=== PATIENT | female | born 1960 | race Caucasian/White ===

== ENCOUNTER → 2020-09-23 17:47 | Outpatient (CLI) | payer OTHER, SELFPAY ==
--- NOTE | ~2020-09-23 | MM_ITS ---
EXAMINATION: MM screening dannie BI w mani HISTORY: Screening mammogram TECHNIQUE: Craniocaudal and mediolateral oblique 3-D tomosynthesis images were obtained and synthetic 2-D images were generated. CAD analysis was submitted and interpreted. COMPARISON: 07/31/2017 diagnostic left digital mammogram , 12/10/2012 bilateral digital screening mammogram examinations BREAST PARENCHYMAL COMPOSITION: There are scattered areas of fibroglandular density. FINDINGS: Prominent right axillary tail and bilateral axillary lymph nodes are again noted, also pres ent on 12/10/2012. There is no evidence of suspicious mass, calcification, or architectural distortion to suggest malignancy in either breast. There has been no suspicious interval change. IMPRESSION: 1. No mammographic evidence of malignancy. 2. Recommend routine screening mammography in one year. BI-RADS Category 2: Benign finding(s). Reviewed, dictated and finalized at location A.
--- NOTE | ~2020-09-23 | DEXA_ITS ---
Bone Density Report Name: Catherine Alexis Age: 59 Sex: Female Ethnicity: White Date of : 1960 Indication: osteopenia; height loss; postmenopausal Referring Provider: Allie Lopez Study: Bone densitometry was performed. Exam Date: September 23, 2020 Accession number: [id number] Bone Density: Region BMD T-score Z-score Classification AP Spine (L1-L4) 0.856 -1.7 -0.3 Osteopenia Femoral Neck (Left) 0.794 -0.5 0.8 Normal Total Hip (Left) 0.920 -0.2 0.8 Normal Femoral Neck (Right) 0.812 -0.3 0.9 Normal Total Hip (Right) 0.887 -0.4 0.5 Normal Total Hip Mean 0.904 -0.3 0.7 Normal World Health Organization criteria for BMD impression classify patients as: Normal (T-score at or above -1.0), Osteopenia (T-score between -1.0 and -2.5), or Osteoporosis (T-score at or below -2.5). 10-year Fracture Risk(1): Major Osteoporotic Fracture 6.3% Hip Fracture 0.2% Reported Risk Factors: [place] (), Neck BMD=0.794, BMI=30.1 (1) FRAX(R) Version 3.08. Fracture probability calculated for an untreated patient. Fracture probability may be lower if the patient has received treatment. Previous Exams: Region Exam Age BMD T-score BMD Change BMD Change Date g/cm2 vs Baseline vs Previous AP Spine(L1-L4) 09/23/2020 59 0.856 -1.7 -0.045* -0.045* 07/18/2017 56 0.901 -1.3 Total Hip(Left) 09/23/2020 59 0.920 -0.2 -0.020 -0.020 07/18/2017 56 0.940 0.0 Total Hip(Right) 09/23/2020 59 0.887 -0.4 -0.047* -0.047* 07/18/2017 56 0.934 -0.1 *Denotes significance at 95% confidence level, LSC for AP Spine = 0.022 g/cm2, LSC for Total Hip = 0.027 g/cm2 Clinical Information Provided by Patient: Has used the following medications: Vitamin D Patient maximum height was 66 Menopause Age: 50 No regular weight bearing exercise Does not regularly consume dairy products Onset of menses at age 13 Number of children 3 Impression: The patient has low bone mass, based on the Total Spine T-score. The patient has an estimated ten-year risk of hip fracture of 0.2% and an estimated ten-year risk of major fracture of 6.3%, based on the WHO FRAX algorithm. The BMD for the AP Spine(L1-L4) decreased, changing by -0.045 since the last DXA exam. The BMD for the Total Hip(Right) decreased, changing by -0.047 since the last DXA exam. Discussion: BONE DENSITY IS LOW AT ONE OR MORE SKELETAL SITES. This patient's lowest T-sc
== END ==
PROVIDERS: PCP Internal Medicine; Visit Provider Nurse Practitioner
DX: Z12.31 Encounter for screening mammogram for malignant neoplasm of breast (principal); M85.88 Other specified disorders of bone density and structure, other site
CPT/HCPCS: 77063; 77067; 77080

== ENCOUNTER → 2021-11-28 12:34 | Outpatient (CLI) | payer OTHER, SELFPAY ==
--- NOTE | ~2021-11-28 | MM_ITS ---
EXAMINATION: MM screening dannie BI w mani HISTORY: Screening mammogram TECHNIQUE: Craniocaudal and mediolateral oblique 3-D tomosynthesis images were obtained and synthetic 2-D images were generated. CAD analysis was submitted and interpreted. COMPARISON: 09/23/2020 bilateral screening mammogram 07/31/2017 diagnostic left mammogram 07/18/2017 bilateral screening mammogram 12/10/2012 bilateral screening mammogram BREAST PARENCHYMAL COMPOSITION: There are scattered areas of fibroglandular density. FINDINGS: There is no evidence of suspicious mass, calcification, or architectural distortion to sugg est malignancy in either breast. There has been no suspicious interval change. IMPRESSION: 1. No mammographic evidence of malignancy. 2. Recommend routine screening mammography in one year. BI-RADS Category 1: Negative Reviewed, dictated and finalized at location A.
== END ==
PROVIDERS: PCP Internal Medicine; Visit Provider Internal Medicine
DX: Z12.31 Encounter for screening mammogram for malignant neoplasm of breast (principal)
CPT/HCPCS: 77063; 77067

== ENCOUNTER 2022-10-16 08:39 | Day surgery (SDC) | payer OTHER, SELFPAY ==
[2022-09-13 13:04] VITALS: BMI 32.3
--- NOTE | 2022-10-02 10:24 | SUR.PREOP ---
pt states no change in health hx/ new time and date for procedure provided.
--- NOTE | 2022-10-13 16:10 | P.HP_ITS ---
History of Present Illness History of Present Illness Consent: Risks, benefits, and alternatives have been discussed and questions answered. Patient agrees to proceed with procedure. Chief complaint: Dysphagia Narrative: Catherine Alexis is a 61 year old female referred for investigation of dysphagia. For the past several years she is noticing solid food getting stuck about a [address]. And on some occasions she can regurgitate it but usually she needs to wait for it to pass. Rice, bread and meat are things to give her the most difficulty. She denies chronic heartburn. Review of Systems Review of Systems: All systems reviewed & are unremarkable except as noted in HPI and below PMFSH Past Medical History Medical History COVID (~12/19/20) Elevated BP without diagnosis of hypertension Hypothyroidism Osteopenia Syncope Vitamin D deficiency Surgical History Surgical History H/O elbow surgery Radial head replacement in right elbow 01/17/2018 H/O tubal ligation 1991 History of appendectomy 1967 Family History Family History Father Family history of coronary artery disease Grandparent Diabetes mellitus Hypothyroidism Mother Diabetes mellitus Hypothyroidism Hypertension Son Heart disease Social History Social History Smoking status: Never smoker Alcohol intake: current Drinks per week: 0 Alcohol use details: 2X/YEAR Substance use: never Substance use type: does not use Lack of Transportation: No Lack of Food: Never True Current Housing: I Have Housing Concerned About Future Housing: No Difficulty Paying Gas/Electric Bills: No Difficulty Paying for Meds: No Currently Unemployed: No Education: High School Diploma/GED Difficulty w/ Childcare or Family Care: No Living arrangements: with family Spiritual care concerns: No Meds Home Medications and Allergies Home Medications Medication Instructions Recorded Confirmed Type levothyroxine 88 mcg tablet 88 mcg PO DAILY #90 tabs 07/06/22 10/16/22 Rx Allergies Allergy/AdvReac Type Severity Reaction Status Date / Time No Known Allergies Allergy Verified 10/16/22 09:07 Exam Const: General: alert Orientation/consciousness: patient oriented x3 Resp: Auscultation: clear to auscultation bilaterally Cardio: Rhythm: regular rhythm GI: GI Palp: Yes Soft to palpation and No Tenderness to palpation present (GI) Neuro: General: patient oriented x3 Assessment and Plan Assessment and plan (1) Dysphagia: Code(s): R13.10 - Dysphagia, unspecified Status: Acute Assessment and Plan: EGD with possible biopsy or dilatation or cautery.
--- NOTE | 2022-10-16 08:55 | P.PNAN_ITS ---
Anes - Initial Pre Proc Eval Procedure: Operation Date: 10/16/22 10:30 Proposed Procedures p Esophagogastroduodenoscopy - Triston Taylor MD Date/Time: 10/16/22 08:55 Surgeon: Triston Taylor MD Pre Op Diagnosis: Dysphagia Patient Data Age: 61 Gender: F Height: 1.65 m Weight: 88 kg Allergies Allergy/AdvReac Type Severity Reaction Status Date / Time No Known Allergies Allergy Verified 09/13/22 13:04 Home Medications Medication Instructions Recorded Confirmed Type levothyroxine 88 mcg tablet 88 mcg PO DAILY #90 tabs 07/06/22 09/13/22 Rx Patient hx anesthesia problems: none Family hx anesthesia problems: none Results Review: All pre-operative results and documents have been reviewed as part of the pre- operative evaluation. [facility] Past Medical History Medical History COVID (~12/19/20) Elevated BP without diagnosis of hypertension Hypothyroidism Osteopenia Syncope Vitamin D deficiency Surgical History Surgical History H/O elbow surgery Radial head replacement in right elbow 01/17/2018 H/O tubal ligation 1991 History of appendectomy 1967 Family History Family History Father Family history of coronary artery disease Grandparent Diabetes mellitus Hypothyroidism Mother Diabetes mellitus Hypothyroidism Hypertension Son Heart disease Social History Social History (Updated 08/18/22 @ 07:37 by Verónica Plata CMA) Smoking status: Never smoker Alcohol intake: current Drinks per week: 0 Alcohol use details: 2X/YEAR Substance use: never Substance use type: does not use Lack of Transportation: No Lack of Food: Never True Current Housing: I Have Housing Concerned About Future Housing: No Difficulty Paying Gas/Electric Bills: No Difficulty Paying for Meds: No Currently Unemployed: No Education: High School Diploma/GED Difficulty w/ Childcare or Family Care: No Living arrangements: with family Spiritual care concerns: No Anes - Eval Final PreProcedure Day of Procedure 10/16/22 08:55 Patient weight: obese Heart: regular rate and rhythm Lungs: clear to auscultation and normal air movement Airway: Mallampati scale class II Neurological: alert and oriented Last oral intake: >/= 8 hours ASA classification: II Emergent: no Anesthetic plan: proceed Anesthesia type and monitoring: general GIVS Results Review: All pre-operative results and documents have been reviewed as part of the pre- operative evaluation. Informed Consent: The patient's anesthetic plan and its attendant risks and benefits were discussed with the patient/family/POA. Questions were solicited and answers provided to the satisfaction of the patient/family/POA.
[2022-10-16 09:12] VITALS: BP 153/87; PULSE 70; RESP 18; TEMP 37; O2SAT 100
[2022-10-16] MEDS: LACTATED RINGERS 1,000 ML 150 ML IV CONT (09:33)
[2022-10-16 10:56] VITALS: BP 109/48; PULSE 64; RESP 14; O2SAT 97
[2022-10-16 11:03] VITALS: BP 124/59; PULSE 62; RESP 15; O2SAT 98
[2022-10-16 11:13] VITALS: BP 130/64; PULSE 63; RESP 15; O2SAT 99
--- NOTE | 2022-10-16 11:32 | WPDANESPN ---
Anes - Prog Note Post-Op Date/Time: 10/16/22 11:32 Cardiovascular status: normal Respiratory status: normal Airway patency: baseline Mental status: baseline Post-Op hydration status: normal Vital Signs: Last Vital Signs Temp 37.0 C 10/16/22 09:12 Pulse 63 10/16/22 11:13 Resp 15 10/16/22 11:13 BP 130/64 10/16/22 11:13 Pulse Ox 99 10/16/22 11:13 O2 Del Method Room Air 10/16/22 11:13 Pain Score (VAS): 0 I/O: Intake & Output 10/15/22 10/16/22 10/16/22 23:59 07:59 15:59 Intake Total 200 Balance 200 Post-procedural complaints: none Patient Feedback: Patient satisfied with anesthetic care.
== END 2022-10-16 11:46 | disposition home or self-care (01) ==
PROVIDERS: PCP Internal Medicine; Visit Provider Internal Medicine Gastroenterology
PROC: 0DJ08ZZ Inspection of Upper Intestinal Tract, Via Natural or Artificial Opening Endoscopic (ICD-10-PCS; CPT 43235; principal; 2022-10-16 10:30)
DX: R13.10 Dysphagia, unspecified (principal)
CPT/HCPCS: 43249; 43239

== ENCOUNTER 2022-10-16 09:00 | Outpatient (NON) | payer OTHER, SELFPAY | END 2022-10-16 09:01 | disposition home or self-care (01) | LOC: ANHLAB 10-18 07:38 | PROVIDERS: PCP Internal Medicine; Visit Provider Internal Medicine Gastroenterology | DX: K21.00 Gastro-esophageal reflux disease with esophagitis, without bleeding (principal) | CPT/HCPCS: 88305 ==

== ENCOUNTER 2023-01-02 14:55 | Outpatient (CLI) | payer OTHER, SELFPAY ==
[2023-01-02 16:32] LABS: Basophils Absolute Auto 0.1 K/mm3 (0.0-0.1); Basophils Percent Auto 0.7 % (0.2-1.2); Eosinophils Absolute Auto 0.2 K/mm3 (0-0.3); Eosinophils Percent Auto 2.6 % (0-4.4); Hematocrit 35.1 % (37.0-47.0); Hemoglobin 11.2 g/dL (12.0-15.0); Immature Granulocyte Absolute 0.02 K/mm3 (0.00-0.031); Immature Granulocyte Percent A 0.3 % (0-0.5); Lymphocytes Absolute Auto 2.76 K/mm3 (0.9-3.2); Lymphocytes Percent Auto 40.1 % (18.3-44.2); Mean Corpuscular HGB Conc 31.9 g/dl (32-36); Mean Corpuscular Hemoglobin 26.2 pg (26-34); Mean Platelet Volume 11.6 fl (7.4-10.4); Monocytes Absolute Auto 0.5 K/mm3 (0.1-0.6); Monocytes Percent Auto 7.3 % (2.6-8.5); Neutrophils Absolute Auto 3.4 K/mm3 (1.3-6.7); Platelet Count Result 213 k/mm3 (150-375); Red Blood Count 4.28 M/mm3 (4.2-5.4); Red Cell Distribution Width 14.1 % (11.5-14.5); White Blood Count 6.9 K/mm3 (4.5-10.0)
[2023-01-02 16:50] LABS: Alanine Aminotransferase 26 U/L (6-35); Albumin Level 4.2 g/dL (3.5-5.1); Alkaline Phosphatase 46 U/L (38-126); Anion Gap 10 mmol/L (8-16); Aspartate Amino Transferase 38 U/L (14-36); Bilirubin,Total 0.3 mg/dL (0.2-1.3); Blood Urea Nitrogen 14 mg/dL (7-17); Calcium 9.1 mg/dL (8.4-10.2); Carbon Dioxide 25 mmol/L (22-30); Chloride 104 mmol/L (98-107); Estimated Glomerular Filt Rate > 60; Glucose 129 mg/dL (65-110); Potassium 3.9 mmol/L (3.4-5.0); Sodium 139 mmol/L (137-145)
== END 2023-01-02 14:56 | disposition home or self-care (01) ==
LOC: ANHGOSHLAB 14:56
PROVIDERS: PCP Internal Medicine; Visit Provider Nurse Practitioner
DX: E03.9 Hypothyroidism, unspecified (principal); R74.8 Abnormal levels of other serum enzymes; Z13.29 Encounter for screening for other suspected endocrine disorder
CPT/HCPCS: 36415; 80053; 84443; 85025

== ENCOUNTER 2023-02-01 07:30 | Day surgery (SDC) | payer OTHER, SELFPAY ==
[2023-01-24 13:47] VITALS: BMI 35.4
--- NOTE | 2023-01-31 15:34 | PM.HPGS ---
History of Present Illness History of Present Illness Consent: Risks, benefits, and alternatives have been discussed and questions answered. Patient agrees to proceed with procedure. Chief complaint: Neoplasm Screening Narrative: Catherine Alexis is a 62 year old female Was referred for colon cancer screening. Her last colonoscopy which was 10 years ago was unremarkable. Review of Systems Review of Systems: All systems reviewed & are unremarkable except as noted in HPI and below PMFSH Past Medical History Medical History COVID (~12/19/20) Elevated BP without diagnosis of hypertension Hypothyroidism Osteopenia Syncope Vitamin D deficiency Surgical History Surgical History H/O elbow surgery Radial head replacement in right elbow 01/17/2018 H/O tubal ligation 1990 History of appendectomy 1967 Family History Family History Father Family history of coronary artery disease Grandparent Diabetes mellitus Hypothyroidism Mother Diabetes mellitus Hypothyroidism Hypertension Son Heart disease Social History Social History Smoking status: Never smoker Alcohol intake: current Drinks per week: 0 Alcohol use details: socially Substance use: never Substance use type: does not use Lack of Transportation: No Lack of Food: Never True Current Housing: I Have Housing Concerned About Future Housing: No Difficulty Paying Gas/Electric Bills: No Difficulty Paying for Meds: No Currently Unemployed: No Education: High School Diploma/GED Difficulty w/ Childcare or Family Care: No Living arrangements: with family Spiritual care concerns: No Meds Home Medications and Allergies Home Medications Medication Instructions Recorded Confirmed Type pantoprazole 40 mg tablet,delayed 40 mg PO QAM #30 tabs 10/16/22 02/01/23 Rx release levothyroxine 88 mcg tablet See Rx Instructions .Route 01/26/23 02/01/23 Rx .COMPLEX #90 tabs Allergies Allergy/AdvReac Type Severity Reaction Status Date / Time No Known Allergies Allergy Verified 02/01/23 08:37 Exam Const: General: alert Orientation/consciousness: patient oriented x3 Resp: Auscultation: clear to auscultation bilaterally Cardio: Rhythm: regular rhythm GI: GI Palp: Yes Soft to palpation and No Tenderness to palpation present (GI) Neuro: General: patient oriented x3 Assessment and Plan Assessment and plan (1) Screening for colon cancer: Code(s): Z12.11 - Encounter for screening for malignant neoplasm of colon Status: Acute Assessment and Plan: Colonoscopy with possible biopsy or polypectomy or cautery or injection of substances.
[2023-02-01 08:41] VITALS: BP 131/73; PULSE 73; RESP 16; TEMP 36.6; O2SAT 98
[2023-02-01] MEDS: LACTATED RINGERS 1,000 ML 150 ML IV CONT (08:58)
--- NOTE | 2023-02-01 09:24 | P.PNAN_ITS ---
Anes - Initial Pre Proc Eval Procedure: Operation Date: 02/01/23 10:00 Proposed Procedures p Screening Colonoscopy - Triston Taylor MD Date/Time: 02/01/23 09:24 Surgeon: Triston Taylor MD Pre Op Diagnosis: Neoplasm Screening Patient Data Age: 62 Gender: F Height: 1.63 m Weight: 94 kg Last Vital Signs Temp 36.6 C 02/01/23 08:41 Pulse 73 02/01/23 08:41 Resp 16 02/01/23 08:41 BP 131/73 02/01/23 08:41 Pulse Ox 98 02/01/23 08:41 O2 Del Method Room Air 02/01/23 08:41 Allergies Allergy/AdvReac Type Severity Reaction Status Date / Time No Known Allergies Allergy Verified 02/01/23 08:37 Home Medications Medication Instructions Recorded Confirmed Type pantoprazole 40 mg tablet,delayed 40 mg PO QAM #30 tabs 10/16/22 02/01/23 Rx release levothyroxine 88 mcg tablet See Rx Instructions .Route 01/26/23 02/01/23 Rx .COMPLEX #90 tabs Patient hx anesthesia problems: none Family hx anesthesia problems: none Results Review: All pre-operative results and documents have been reviewed as part of the pre- operative evaluation. [facility] Past Medical History Medical History COVID (~12/19/20) Elevated BP without diagnosis of hypertension Hypothyroidism Osteopenia Syncope Vitamin D deficiency Surgical History Surgical History H/O elbow surgery Radial head replacement in right elbow 01/17/2018 H/O tubal ligation 1991 History of appendectomy 1967 Family History Family History Father Family history of coronary artery disease Grandparent Diabetes mellitus Hypothyroidism Mother Diabetes mellitus Hypothyroidism Hypertension Son Heart disease Social History Social History Smoking status: Never smoker Alcohol intake: current Drinks per week: 0 Alcohol use details: socially Substance use: never Substance use type: does not use Lack of Transportation: No Lack of Food: Never True Current Housing: I Have Housing Concerned About Future Housing: No Difficulty Paying Gas/Electric Bills: No Difficulty Paying for Meds: No Currently Unemployed: No Education: High School Diploma/GED Difficulty w/ Childcare or Family Care: No Living arrangements: with family Spiritual care concerns: No Anes - Eval Final PreProcedure Day of Procedure 02/01/23 09:24 Patient weight: obese Heart: regular rate and rhythm Lungs: clear to auscultation Airway: Mallampati scale class II Neurological: alert and oriented Last oral intake: >/= 8 hours ASA classification: II Emergent: no Anesthetic plan: proceed Anesthesia type and monitoring: general GIVS and standard monitoring Results Review: All pre-operative results and documents have been reviewed as part of the pre- operative evaluation. Informed Consent: The patient's anesthetic plan and its attendant risks and benefits were discusse d with the patient/family/POA. Questions were solicited and answers provided to the satisfaction of the patient/fa
[2023-02-01 10:40] VITALS: BP 92/48; PULSE 63; RESP 16; O2SAT 100
[2023-02-01 10:50] VITALS: BP 103/66; PULSE 67; RESP 16; O2SAT 98
[2023-02-01 10:58] VITALS: BP 118/65; PULSE 56; RESP 16; O2SAT 100
--- NOTE | 2023-02-01 11:26 | WPDANESPN ---
Anes - Prog Note Post-Op Date/Time: 02/01/23 11:26 Cardiovascular status: normal Respiratory status: normal Airway patency: baseline Mental status: baseline Post-Op hydration status: normal Vital Signs: Last Vital Signs Temp 36.6 C 02/01/23 08:41 Pulse 56 L 02/01/23 10:58 Resp 16 02/01/23 10:58 BP 118/65 02/01/23 10:58 Pulse Ox 100 02/01/23 10:58 O2 Del Method Room Air 02/01/23 10:58 Pain Score (VAS): 0 I/O: Intake & Output 01/31/23 02/01/23 02/01/23 23:59 07:59 15:59 Intake Total 450 Balance 450 Patient Feedback: Patient satisfied with anesthetic care.
== END 2023-02-01 11:06 | disposition home or self-care (01) ==
PROVIDERS: PCP Internal Medicine; Visit Provider Internal Medicine Gastroenterology
PROC: 0DJD8ZZ Inspection of Lower Intestinal Tract, Via Natural or Artificial Opening Endoscopic (ICD-10-PCS; CPT 45378; principal; 2023-02-01 10:00)
DX: Z12.11 Encounter for screening for malignant neoplasm of colon (principal)
CPT/HCPCS: 45378

== ENCOUNTER → 2023-02-05 14:37 | Outpatient (CLI) | payer OTHER, SELFPAY ==
--- NOTE | ~2023-02-05 | MM_ITS ---
EXAMINATION: MM screening [facility] BI w mani HISTORY: Screening mammogram TECHNIQUE: Craniocaudal and mediolateral oblique 3-D tomosynthesis images were obtained and synthetic 2-D images were generated. CAD analysis was submitted and interpreted. COMPARISON: 11/28/2021, 09/23/2020 by lateral screening mammogram examinations BREAST PARENCHYMAL COMPOSITION: There are scattered areas of fibroglandular density. FINDINGS: There is no evidence of suspicious mass, calcification, or architectural distortion to sugg est malignancy in either breast. There has been no suspicious interval change. IMPRESSION: 1. No mammographic evidence of malignancy. 2. Recommend routine screening mammography in one year. BI-RADS Category 1: Negative Reviewed, dictated and finalized at location A.
== END ==
PROVIDERS: PCP Internal Medicine; Visit Provider Internal Medicine
DX: Z12.31 Encounter for screening mammogram for malignant neoplasm of breast (principal)
CPT/HCPCS: 77063; 77067

== ENCOUNTER 2023-12-21 08:19 | Outpatient (CLI) | payer OTHER, SELFPAY ==
[2023-12-21 14:45] LABS: Basophils Percent Auto 0.7 % (0.2-1.2); Eosinophils Absolute Auto 0.1 K/mm3 (0-0.3); Hematocrit 39.5 % (37.0-47.0); Hemoglobin 12.7 g/dL (12.0-15.0); Immature Granulocyte Absolute 0.01 K/mm3 (0.00-0.031); Immature Granulocyte Percent A 0.2 % (0-0.5); Lymphocytes Absolute Auto 2.42 K/mm3 (0.9-3.2); Lymphocytes Percent Auto 44.6 % (18.3-44.2); Mean Corpuscular HGB Conc 32.2 g/dl (32-36); Mean Corpuscular Hemoglobin 26.7 pg (26-34); Mean Corpuscular Volume 83.2 fl (80-100); Mean Platelet Volume 12.4 fl (7.4-10.4); Monocytes Absolute Auto 0.3 K/mm3 (0.1-0.6); Monocytes Percent Auto 6.1 % (2.6-8.5); Neutrophils Absolute Auto 2.5 K/mm3 (1.3-6.7); Neutrophils Percent Auto 46.4 % (45.5-73.1); Platelet Count Result 199 k/mm3 (150-375); Red Blood Count 4.75 M/mm3 (4.2-5.4); Red Cell Distribution Width 13.9 % (11.5-14.5); White Blood Count 5.4 K/mm3 (4.5-10.0)
[2023-12-21 14:50] LABS: Alanine Aminotransferase 38 U/L (6-35); Albumin Level 4.3 g/dL (3.5-5.1); Alkaline Phosphatase 55 U/L (38-126); Anion Gap 10 mmol/L (4-12); Aspartate Amino Transferase 52 U/L (14-36); Bilirubin,Total 0.4 mg/dL (0.2-1.3); Blood Urea Nitrogen 12 mg/dL (7-17); Carbon Dioxide 26 mmol/L (22-30); Chloride 103 mmol/L (98-107); Cholesterol 148 mg/dL (0-200); Estimated Glomerular Filt Rate > 60; Glucose 106 mg/dL (65-110); HDL Direct 47 mg/dL; Potassium 3.8 mmol/L (3.4-5.0); Sodium 139 mmol/L (137-145); Triglycerides 139 mg/dL (<150)
[2023-12-21 15:00] LABS: LDL Cholesterol Direct 69 mg/dL
== END 2023-12-21 08:20 | disposition home or self-care (01) ==
LOC: ANHGOSHLAB 08:21
PROVIDERS: PCP Nurse Practitioner; Visit Provider Nurse Practitioner
DX: E03.9 Hypothyroidism, unspecified (principal); E55.9 Vitamin D deficiency, unspecified; Z13.220 Encounter for screening for lipoid disorders
CPT/HCPCS: 36415; 80053; 80061; 82306; 84443; 85025

== ENCOUNTER 2024-02-10 18:03 | Emergency (ER) | payer OTHER, SELFPAY ==
[2024-02-10 18:10] VITALS: BP 145/81; PULSE 79; RESP 18; TEMP 36.4; O2SAT 97
--- NOTE | 2024-02-10 18:23 | ED.URI ---
HPI - URI/Sore Throat General Chief Complaint: Upper Respiratory Infection Stated Complaint: cough / congestion / chest pain Time Seen by Provider: 02/10/24 18:24 Source: patient Mode of arrival: ambulatory Limitations: no limitations History of Present Illness HPI Narrative: 63-year-old female presents with complaint of cough, nasal congestion, fatigue, body aches for 4 days. Patient states her was seen here and was given antibiotic and steroid. Is requesting the same. Afebrile. No chest pain or shortness of breath. All systems reviewed negative except as noted above. Related Data Allergies Allergy/AdvReac Type Severity Reaction Status Date / Time No Known Allergies Allergy Verified 02/10/24 18:15 Review of Systems Review of Systems: CONSTITUTIONAL: Denies fever, chills, or sweats. Reports fatigue. EYES: Denies visual changes, redness, or discharge. ENT: reports rhinorrhea, congestion. Denies sore throat, or otalgia. CARDIOVASCULAR: Denies chest pain, palpitations, or edema. RESPIRATORY: Reports cough. Denies dyspnea. GASTROINTESTINAL: Denies abdominal pain, nausea, vomiting, or diarrhea. GENITOURINARY: Denies dysuria or hematuria. SKIN: Denies rash or itching. MUSCULOSKELETAL: Denies back pain, joint pain, or myalgia. NEUROLOGIC: Denies headache, numbness, or weakness. PSYCHIATRIC: Denies anxiety or depression. All other systems reviewed are negative, except as documented in HPI. [facility] Past Medical History Medical History COVID (~12/19/20) Elevated BP without diagnosis of hypertension Hypothyroidism Osteopenia Syncope Vitamin D deficiency Surgical History Surgical History H/O elbow surgery Radial head replacement in right elbow 01/17/2018 H/O tubal ligation 1991 History of appendectomy 1967 Family History Family History Father Family history of coronary artery disease Grandparent Diabetes mellitus Hypothyroidism Mother Diabetes mellitus Hypothyroidism Hypertension Son Heart disease Social History Social History (Updated 12/14/23 @ 08:52 by Verónica Plata CMA) Smoking status: Never smoker Alcohol intake: current Drinks per week: 0 Alcohol use details: socially Substance use: never Substance use type: does not use Do You Feel Safe in your Home?: Yes Lack of Transportation: No Lack of Food: Never True Current Housing: I Have Housing Concerned About Future Housing: No Difficulty Paying Gas/Electric Bills: No Difficulty Paying for Meds: No Currently Unemployed: No Education: High School Diploma/GED Difficulty w/ Childcare or Family Care: No Living arrangements: with family Spiritual care concerns: No Comments At time of signature, agree with nursing past medical, surgical, social and family history. There is no relevant family history pertinent to the presenting complaint. Exam Narrative: GENERAL: This is a well-nourished, well-developed patient, in no apparent distress. HEAD: normocephalic, atraumatic. EYES: PERRL. Sclera clear/white. Vision is grossly intact. EARS: External ears normal, auditory canals clear and without drainage, TMs normal without perforation. Hearing grossly intact. NOSE: External nose normal with Clear nasal drainage, mild congestion THROAT: Mucous membranes moist, postnasal drainage with mild erythema. No swelling or exudates. NECK: Neck supple, non-tender without lymphadenopathy, masses or thyromegaly. CARDIOVASCULAR: Regular rate and rhythm without murmurs, gallops, or rubs. RESPIRATORY: Crackles to bilateral lower lung perez on auscultation. Breath sounds equal bilaterally. No wheezes, rales, or rhonchi. SKIN: warm, Dry, intact with no suspicious lesions or rash, good texture and turgor. NEURO: awake, alert, and oriented to person, place and time. There were no obvious focal neurologic abnormalities. EXTREMITIES: No joint tenderness, effusion, or edema noted. Course Course Level of Care: Express Care Visit Vital Signs Vital signs: Vital Signs Temperature 36.4 C L 02/10/24 18:10 Pulse Rate 79 02/10/24 18:10 Respiratory Rate 18 02/10/24 18:10 Blood Pressure 145/81 H 02/10/24 18:10 Pulse Oximetry 97 02/10/24 18:10 Oxygen Delivery Room Air 02/10/24 18:10 Temperature 36.4 C L 02/10/24 18:10 Pulse Rate 79 02/10/24 18:10 Respiratory Rate 18 02/10/24 18:10 Blood Pressure 145/81 H 02/10/24 18:10 Pulse Oximetry 97 02/10/24 18:10 Oxygen Delivery Room Air 02/10/24 18:10 reviewed MDM - URI/Sore Throat MDM Narrative Medical decision making narrative: will treat patient for possible pneumonia due to crackles on auscultation. Mycoplasma pneumonia outbreak. Chest x-ray was offered patient did not feel was necessary. Patient well-appearing, nontoxic. Patient is aware of diagnosis, understands and agrees to treatment plan. Anticipatory guidance given. Patient agrees to follow-up as directed and is aware of reasons to seek care at the emergency department. Portions of this record may have been created with voice recognition software Differential Diagnosis Differential diagnosis: Likely upper respiratory infection, sinusitis, viral infection and bronchitis Discharge Plan Discharge Clinical Impression: Upper respiratory infection with cough and congestion Patient Disposition: Home, Self-Care Condition: Stable Instructions: Antibiotic Form, Acute Cough (ED) Additional Instructions: Take medications as prescribed. Continue taking [id number] Mucinex as directed on packaging. Take Tylenol or ibuprofen every 6-8 hours as needed for pain and fever. Drink at least 64 oz of water a day. Follow-up with your primary care physician if symptoms are not improving. Prescriptions: New doxycycline hyclate 100 mg capsule 100 mg PO BID 7 Days Qty: 14 0RF benzonatate 200 mg capsule 200 mg PO TID PRN (Reason: cough) Qty: 20 0RF methylprednisolone [Medrol (Janes)] 4 mg tablets,dose pack See Rx Instructions PO .COMPLEX Qty: 21 0RF Rx Instructions: orally per package directions No Action hydroxyzine HCl 25 mg tablet 25 mg PO QHS PRN (Reason: anxiety) Qty: 20 1RF pantoprazole 40 mg tablet,delayed release (DR/EC) 40 mg PO DAILY Qty: 90 3RF levothyroxine 100 mcg tablet 100 mcg PO DAILY Qty: 90 0RF cholecalciferol (vitamin D3) 1,250 mcg (50,000 unit) capsule 1,250 mcg PO WEEKLY Qty: 8 0RF Follow-up/Referrals: Scott Jimenez DO [Primary Care Provider] - Time of Disposition: 18:29
== END 2024-02-10 18:35 | disposition home or self-care (01) ==
PROVIDERS: Emergency Provider Nurse Practitioner Family; PCP Internal Medicine
DX: J06.9 Acute upper respiratory infection, unspecified (principal); R05.9 Cough, unspecified; E03.9 Hypothyroidism, unspecified; M85.80 Other specified disorders of bone density and structure, unspecified site; Z86.16 Personal history of COVID-19
CPT/HCPCS: 99213; G0463

== ENCOUNTER 2024-03-06 10:36 | Outpatient (CLI) | payer OTHER, SELFPAY ==
--- NOTE | ~2024-03-06 | XR_ITS ---
EXAMINATION: XR elbow RT min 3V DATE: 03/06/2024 10:43 INDICATION: Right elbow pain. TECHNIQUE: 4 views of right elbow were obtained. COMPARISON: Right forearm radiographs 08/21/2017 FINDINGS: Alignment is normal. No fracture. There is a prosthetic radial head. No periprosthetic luce ncy to suggest loosening or infection. There is severe elbow joint osteoarthritis. No elbow joint eff usion. IMPRESSION: 1. Severe elbow joint osteoarthritis. 2. Radial head prosthesis. Reviewed, dictated and finalized at location A. [employer]
== END 2024-03-06 10:37 | disposition home or self-care (01) ==
LOC: GOSHIMG 10:37
PROVIDERS: PCP Anesthesiology Pain Medicine; Visit Provider Nurse Practitioner
DX: M19.021 Primary osteoarthritis, right elbow (principal); Z96.621 Presence of right artificial elbow joint
CPT/HCPCS: 73080

== ENCOUNTER 2024-03-21 14:31 | Outpatient (CLI) | payer OTHER, SELFPAY ==
--- NOTE | ~2024-03-21 | MM_ITS ---
EXAMINATION: MM screening dannie BI w mani HISTORY: Screening TECHNIQUE: Craniocaudal and mediolateral oblique 3-D tomosynthesis images were obtained and synthetic 2-D images were generated. CAD analysis was submitted and interpreted. COMPARISON: Comparison to multiple prior studies sequentially, with oldest reviewed study dated 07/2017. BREAST PARENCHYMAL COMPOSITION: Not dense: There are scattered areas of fibroglandular density. FINDINGS: There is a new mass in the upper outer quadrant of the right breast, posterior third. The l eft breast is stable without evidence for malignancy. IMPRESSION: 1. New right breast mass. 2. Additional mammographic views and possible breast ultrasound are recommended. BI-RADS Category 0: Incomplete: Needs additional imaging evaluation. Reviewed, dictated and finalized at location B. GER TRANSIT IMPRESSION: 1. New right breast mass. 2. Additional mammographic views and possible breast ultrasound are recommended . BI-RADS Category 0: Incomplete: Needs additional imaging evaluation.
== END 2024-03-21 14:32 | disposition home or self-care (01) ==
LOC: MICIMG 14:33
PROVIDERS: PCP Internal Medicine; Visit Provider Internal Medicine
DX: Z12.31 Encounter for screening mammogram for malignant neoplasm of breast (principal); R92.8 Other abnormal and inconclusive findings on diagnostic imaging of breast
CPT/HCPCS: 77063; 77067

== ENCOUNTER 2024-04-04 13:14 | Outpatient (CLI) | payer OTHER, SELFPAY ==
--- NOTE | ~2024-04-04 | MMUS_ITS ---
EXAMINATION: US breast RT limited, MM diagnostic dannie RT w mani HISTORY: Follow-up right breast mass. TECHNIQUE: Additional 3-D tomosynthesis images of the right breast were performed and synthetic 2-D i mages were generated. CAD analysis was submitted and interpreted. High resolution Limited right breas t ultrasound was performed. COMPARISON: Comparison to multiple prior studies sequentially, with oldest reviewed study dated 07/2017. BREAST PARENCHYMAL COMPOSITION: Not dense: There are scattered areas of fibroglandular density. FINDINGS: MAMMOGRAPHIC FINDINGS: There is a persistent mass in the upper outer quadrant of the right breast posteriorly with indistinc t margins. There are no suspicious calcifications. ULTRASOUND: Limited right breast ultrasound: At 9:00, 5 cm from the nipple there is an irregular shaped antiparal lel hypoechoic mass with posterior shadowing and no internal vascularity measuring 4 mm. This likely corresponds to the mammographic finding. At 10:00, 1 cm from the nipple there is a 6 mm cyst. IMPRESSION: 1. Irregular shaped hypoechoic antiparallel mass measuring 4 mm in the right breast at 9:00, 5 cm fro m the nipple. 2. Ultrasound-guided right breast biopsy recommended. BI-RADS category 4, suspicious findings. Reviewed, dictated and finalized at location B. [employer] WORKER IMPRESSION: 1. Irregular shaped hypoechoic antiparallel mass measuring 4 mm in the right br east at 9:00, 5 cm from the nipple. 2. Ultrasound-guided right breast biopsy recommended. BI-RADS category 4, suspicious findings.
== END 2024-04-04 13:15 | disposition home or self-care (01) ==
LOC: ANHIMG 13:19
PROVIDERS: PCP Internal Medicine; Visit Provider Internal Medicine
DX: R92.8 Other abnormal and inconclusive findings on diagnostic imaging of breast (principal)
CPT/HCPCS: 76642; 77061; 77065; G0279

== ENCOUNTER 2024-05-15 11:40 | Emergency (ER) | payer BC, SELFPAY ==
[2024-05-15 11:48] VITALS: BP 150/73; PULSE 68; RESP 16; TEMP 36.2; O2SAT 100
[2024-05-15 12:13] LABS: EDCOVIDSCREEN Positive (Negative); EDINFLUASCREEN Negative (Negative); EDINFLUBSCREEN Negative (Negative)
--- NOTE | 2024-05-15 12:21 | ED.URI ---
HPI - URI/Sore Throat General Chief Complaint: Upper Respiratory Infection Stated Complaint: sinus congestion History of Present Illness HPI Narrative: patient is a 63-year-old female, past medical history significant for recent breast cancer diagnosis, not receiving treatment thus far, presents to [facility] with 2 day history of URI symptoms, including nasal congestion, dry cough, body aches malaise. She denies associated fevers, she has no chest pain shortness of breath. She is requesting influenza and COVID-19 screenings today. She does have history of COVID x2 in the past without required hospitalization. She denies any additional associated symptoms or modifying factors. Related Data Allergies Allergy/AdvReac Type Severity Reaction Status Date / Time No Known Allergies Allergy Verified 03/06/24 10:13 Review of Systems Constitutional: Comments: Refer HPI ENT: Comments: refer to HPI Respiratory: Comments: for HPI PMFSH Past Medical History Medical History COVID (~12/19/20) Osteopenia Syncope Elevated BP without diagnosis of hypertension Vitamin D deficiency Hypothyroidism Surgical History Surgical History H/O elbow surgery Radial head replacement in right elbow 01/17/2018 H/O tubal ligation 1991 History of appendectomy 1967 Family History Family History Father Family history of coronary artery disease Grandparent Diabetes mellitus Hypothyroidism Mother Diabetes mellitus Hypothyroidism Hypertension Son Heart disease Social History Social History Smoking status: Never smoker Alcohol intake: current Drinks per week: 0 Alcohol use details: socially Substance use: never Substance use type: does not use Do You Feel Safe in your Home?: Yes Lack of Transportation: No Lack of Food: Never True Current Housing: I Have Housing Concerned About Future Housing: No Difficulty Paying Gas/Electric Bills: No Difficulty Paying for Meds: No Currently Unemployed: No Education: High School Diploma/GED Difficulty w/ Childcare or Family Care: No Living arrangements: with family Spiritual care concerns: No Exam Const: General: healthy appearing Nutritional Appearance: well nourished and obese Orientation/consciousness: patient oriented x3 Limitations: no limitations HENMT: Head: normal to inspection Ears: external ears normal Face/Nose/Sinus: Normal external nose present Face and sinus: normal facial exam Mouth: Yes Normal oral and palatal mucosa present and Yes lip normal Other: mild pharyngeal cobblestone appearance noted, otherwise unremarkable pharyngeal exam Eyes: Conjunctivae: conjunctivae normal Pupils: Equal, round and reactive pupils present EOM: EOMs intact bilaterally Direct Ophthalmoscopy: no photophobia Neck: Neck: normal visual inspection, no lymphadenopathy and no meningeal signs Resp: Effort & Inspection: normal respiratory effort Auscultation: clear to auscultation bilaterally Cardio: Rate: regular rate Rhythm: regular rhythm Back/Spine/Pelvis: Back: no CVA tenderness Skin: General skin exam: normal color Rashes: no rashes Wounds: no wounds Extrem: General: normal to inspection Course Course Emergency Course: influenza is negative, COVID-19 positive. Will treat supportively with cough suppressant and short steroid course, pushing fluids and rest. Follow up with her primary doctor as well as Oncology. Patient is agreeable plan Level of Care: Express Care Visit (14095) Vital Signs Vital signs: Vital Signs Temperature 36.2 C L 05/15/24 11:48 Pulse Rate 68 05/15/24 11:48 Respiratory Rate 16 05/15/24 11:48 Blood Pressure 150/73 H 05/15/24 11:48 Pulse Oximetry 100 05/15/24 11:48 Oxygen Delivery Room Air 05/15/24 11:48 Temperature 36.2 C L 05/15/24 11:48 Pulse Rate 68 05/15/24 11:48 Respiratory Rate 16 05/15/24 11:48 Blood Pressure 150/73 H 05/15/24 11:48 Pulse Oximetry 100 05/15/24 11:48 Oxygen Delivery Room Air 05/15/24 11:48 MDM - URI/Sore Throat MDM Narrative Medical decision making narrative: COVID positive, prednisone daily for 5 days, promethazine DM for added symptom relief, will defer Paxlovid bit as patient has had COVID-19 twice in the past and her symptoms are mild at present Differential Diagnosis Differential diagnosis: Likely upper respiratory infection, otitis media, sinusitis, viral infection and bronchitis Lab Data Labs: Lab Results 05/15/24 Range/Units 12:11 POC Influenza A Ag Negative (Negative) POC Influenza B Ag Negative (Negative) POC SARS CoV-2 Ag Positive (Negative) Discharge Plan Discharge Clinical Impression: COVID-19 Patient Disposition: Home, Self-Care Condition: Stable Instructions: Antibiotic Form, COVID-19 (Coronavirus Disease 2019) (ED) Additional Instructions: PUSH FLUIDS AND REST, TAKE TYLENOL DIRECTED [id number] FOR FEVER REDUCTION, COMPLETE ORAL STEROIDS AND USE COUGH MEDICATION DIRECTED. SEE YOUR PRIMARY DOCTOR WELL YOUR ONCOLOGIST FOR FOLLOW-UP. IF YOU DEVELOPS CHEST PAIN OR SHORTNESS OF BREATH, PROCEED TO THE ER IMMEDIATELY Patient Language: Japanese Prescriptions: New prednisone 20 mg tablet 40 mg PO DAILY 5 Days Qty: 10 0RF promethazine-DM 6.25-15 mg/5 mL syrup 5 ml PO Q4-6H PRN (Reason: cough) Qty: 118 0RF No Action hydroxyzine HCl 25 mg tablet 25 mg PO QHS PRN (Reason: anxiety) Qty: 20 1RF pantoprazole 40 mg tablet,delayed release (DR/EC) 40 mg PO DAILY Qty: 90 3RF cholecalciferol (vitamin D3) 1,250 mcg (50,000 unit) capsule 1,250 mcg PO WEEKLY Qty: 8 0RF levothyroxine 100 mcg tablet 100 mcg PO DAILY Qty: 90 0RF Follow-up/Referrals: Scott Jimenez DO [Primary Care Provider] - Time of Disposition: 12:26
--- OUTSIDE RECORDS SUMMARY | 2024-05-15 12:37 | XMS_ITS | Clinical Summary ---
Author Organization [facility] Address [address] [place] [address] Care Team Providers Care Java Golden Gate Developer Name Role Phone Scott Jimenez DO Primary Care Provider [phone] Gill Asif MD Unavailable [phone] Allergies No known active allergies Medications levothyroxine (SYNTHROID) 88 mcg tablet Take 1 tablet (88 mcg total) by mouth daily 01/24/[address] (PROTONIX) 40 mg EC tablet Take 1 tablet (40 mg total) by mouth every morning 02/20/2023 Active rosuvastatin (CRESTOR) 10 mg tablet TAKE 1 TABLET(10 MG) BY MOUTH DAILY 90 tablet 3 03/21/2024 Active Active Problems Problem Noted Date Diagnosed Date History of invasive breast cancer 05/14/2024 Other fatigue 02/27/2023 Chest tightness 02/27/2023 Shortness of breath on exertion 02/27/2023 Urge incontinence of urine 07/01/2014 Pain in female pelvis 10/07/2013 Encounters Date Type Department Care Team Description 05/14/2024 2:00 PM COIL TIER Office Visit [facility] [address] [place] [phone] Aft, Edelmira Keith MD PhD History of invasive breast cancer 05/07/2024 Telephone [facility] [address] [place] [phone] Christian Caldwell 05/05/2024 10:07 AM COIL TIER - 05/05/2024 11:59 PM COIL TIER Hospital Encounter [facility] ([facility]) [address] [place] [address] AftEdelmira MD PhD Invasive lobular carcinoma of right breast in female (HCC) Discharge Disposition: Discharge to home or self care 04/29/2024 Orders Only [facility] [address] [facility] Floor [address] [place] [phone] Aft, Edelmira Keith MD PhD Invasive lobular carcinoma of right breast in female (HCC) (Primary Dx) 04/28/2024 Telephone [facility] ([facility]) [address] [place] [phone] Imelda Wright RN Test Results (Right breast x2 and right axillary LN biopsy path results from 04/25/24.) 04/25/2024 10:38 AM COIL TIER - 04/25/2024 11:59 PM COIL TIER Hospital Encounter [facility] ([facility]) [address] [place] [phone] Abnormal ultrasound Discharge Disposition: Discharge to home or self care 04/25/2024 9:42 AM COIL TIER - 04/25/2024 11:59 PM COIL TIER Hospital Encounter [facility] ([facility]) [address] [place] [address] Abnormal ultrasound Discharge Disposition: Discharge to home or self care 04/25/2024 9:38 AM COIL TIER - 04/25/2024 11:59 PM COIL TIER Hospital Encounter [facility] ([facility]) [address] [place] [address] Abnormal mammogram Discharge Disposition: Discharge to home or self care 04/24/2024 Telephone [facility] ([facility]) [address] [place] [phone] Melva Olvera, EDILSON 04/23/2024 Telephone [facility] ([facility]) [address] [place] [address] Onelia Mccann RN 04/18/2024 5:35 PM COIL TIER - 04/18/2024 11:59 PM COIL TIER Hospital Encounter [facility] ([facility]) [address] [place] [address] Discharge Disposition: Discharge to home or self care 04/15/2024 Telephone [facility] ([facility]) [address] [place] [address] Onelia Mccann, EDILSON 04/11/2024 Telephone [facility] ([facility]) [address] [place] [phone] Imelda Wright RN Appointment (Scheduling of breast biopsy) 04/04/2024 12:05 AM COIL TIER - 04/04/2024 11:59 PM COIL TIER Hospital Encounter [facility] ([facility]) [address] [place] [address] Discharge Disposition: Discharge to home or self care 04/04/2024 - 04/04/2024 11:59 PM COIL TIER Hospital Encounter [facility] ([facility]) [address] [place] [phone] Discharge Disposition: Discharge to home or self care 03/21/2024 - 03/21/2024 11:59 PM COIL TIER Hospital Encounter [facility] ([facility]) [address] [place] [address] Discharge Disposition: Discharge to home or self care from Last 3 Months Immunizations Name Administration Dates Next Due Influenza, Quadrivalent, Michelle l Culture-based MDCK, Preservative Free, Antibiotic Free, Intramuscular 03/06/2023 Surgical History Surgery Date Site/Laterality Comments VA APPENDECTOMY Appendectomy - (Added by TW Conv) VA LIG/TRNSXJ FLP TUBE ABDL/ VAG APPR UNI/BI Tubal Ligation - (Added by TW Conv) TUBAL LIGATION BREAST BIOPSY 04/25/2024 Right Medical History Medical History Date Comments Personal history of other en docrine, nutritional and metabolic disease History of thyroid d isease - (Added by TW Conv) Hypothyroidism Overweight Family History Medical History Relation Name Comments Diabetes type II Mother Family hist ory of type 2 diabetes mellitus - (Added by TW Conv) Heart disease Mother Family history of cardiac disorder - (Added by TW Conv) Hypertension Mother Family history of hypertension - (Added by TW Conv) Relation Name Status Comments Mother Social History Tobacco Use Types Packs/Day Years Used Date Smoking Tobacco: Never Tobacco Cessation:Counseling Given: Not Answered Comments No Sex and Gender Information Value Date Recorded Sex Assigned at Not on file Legal Sex Female 10:39 AM COIL TIER Gender Identity Female 04/20/2024 4:40 PM COIL TIER Sexual Orientation Straight 04/20/2024 4: 40 PM COIL TIER Obstetrics History Para Term AB IAB SAB Ectopic Multiple Livin g Live Births 3 3 3 3 3 Date Outcome GA Total Labor Labor/2nd/3rd Weight Sex Type Anes PTL Kay A1 A5 Name Clin 1980 Term 2.977 kg (6 lb 9 oz) M Vag-S pont Living Complications:None 1982 Term 2.892 kg (6 lb 6 oz) M Vag-S pont Living Complications:None 1990 Term 3.657 kg (8 lb 1 oz) M Vag-S pont Living Complications:None Last Filed Vital Signs Vital Sign Reading Time Taken Comments Blood Pressure 146/84 09/04/2023 9:09 AM CDT Pulse 66 09/04/2023 9:09 AM CDT Temperature 36.4 ??C (97.5 ??F) 04/29/2018 1 2:42 PM COIL TIER Respiratory Rate 23 04/29/2018 3:30 PM COIL TIER Oxygen Saturation 95% 09/04/2023 9:09 AM CDT Inhaled Oxygen Concentration - - Weight 103.2 kg (227 lb 9.6 oz) 05/14/2024 2:00 PM COIL TIER Height 162.6 cm (5' 4 ) 05/14/2024 2:00 PM COIL TIER Body Mass Index 39.07 05/14/2024 2:00 PM COIL TIER Plan of Treatment Health Maintenance Due Date Last Done Comments Breast Cancer Screening-Mammogram 1960 Colon Cancer Screening-Colonoscopy 1960 Depression Screening 1960 Hepatitis C Screening 1960 DTaP/Tdap/Td Vaccine (1 - Tdap) 11/01/1971 Hepatitis B Screening 1978 Zoster Vaccine (1 of 2) 2010 Cervical Cancer Screening 01/16/2023 01/16/2022 Regular Well Visit/Exam 18-64 01/16/2023 01/16/2022 Covid-19 Vaccine (3 - 2023-2 5 season) 2023 08/01/2020, 07/11/2020 Influenza Vaccine (#1) 2023 03/06/2023 Pneumococcal vaccine <65 Aged Out No longer eligible based on patient's age to complete this topic Medical Devices Implanted Type Area Managed Care Specialist Device Identifier Shelf Expiration Date Model / Serial / Lot Bard Peripheral Vascular Ultraclip Bard 17ga 10cm 2 Trigger Permanent Ultrasound [id number] - [id number] Implanted:Qty: 1 on 04/25/2024 at [facility] Right: Breast Bard Peripheral Vascular [id number] / / [employer] Marker Image Hydromark Plus T5 Titanium 15ga Radiological Implant Sterile [id number]-T5 - [id number] Implanted:Qty: 1 on 04/25/2024 at [facility] Right: Breast [employer] [id number] 04/03/2025 4010-02-1 5-T5 / / [id number] D Bard Peripheral Vascular Marker Breast Ring Shape Radiopaque Nitinol Ultracor Twirl [id number] [id number] - [id number] Implanted:Qty: 1 on 04/25/2024 at [facility] Right: Axilla Bard Peripheral Vascular [id number] / / Procedures Procedure Name Priority Date/Time Associated Diagnosis Comments MRI BREAST BILATERAL W WO CONTRAST Schedule Routine, Read Routine (OP Routine) 05/05/2024 11:33 AM COIL TIER Invasive lobular carcinoma of right breast in female (HCC) JEROD POST CLIP PLACEMENT RIGHT Schedule Routine, Read Routine (OP Routine) 04/25/2024 1:37 PM COIL TIER Abnormal ultrasound US GUIDED BREAST BIOPSY RIGHT Schedule Routine, Read Routine (OP Routine) 04/25/2024 1:07 PM COIL TIER Abnormal mammogram SURGICAL PATHOLOGY Routine 04/25/2024 12 :13 PM COIL TIER Abnormal mammogram US BREAST RIGHT LIMITED Schedule Routine, Read Routine (OP Routine) 04/25/2024 10:37 AM COIL TIER Abnormal ultrasound BREAST IMAGING MG DIAGNOSTIC OUTSIDE CONSULT Routine 04/18/2024 5:48 PM COIL TIER BREAST IMAGING MG DIAGNOSTIC OUTSIDE REFERENCE Routine 04/04/2024 12:05 AM COIL TIER BREAST IMAGING US OUTSIDE REFERENCE Routine 04/04/2024 12:00 AM COIL TIER BREAST IMAGING MG SCREENING OUTSIDE REFERENCE Routine 03/21/2024 12:00 AM COIL TIER PAP AND HIGH RISK HPV, REFLEX TO GENOTYPING Routine 01/16/2022 11:41 AM CDT Screening for cervical cancer from Last 3 Months or Most Recently Relevant to Health Maintenance Results * MRI Breast Bilateral W WO Contrast (05/05/2024 11:33 AM COIL TIER) Anatomical Region Laterality Modality Breast Bilateral Magnetic Resonan ce 05/05/2024 2:16 PM COIL TIER Addenda Addendum by Frankie Courtney MD on 05/05/2024 3:05 PM COIL TIER In addition, the enhancing biopsy-proven central outer right breast malignancy closely abuts the lateral aspect of the pectoralis muscle without definite involvement. There is no abnormal enhancement of the overlying skin. Dictated by: Hafsa Pierson M.D. The radiology attending physician has personally reviewed this study, and had reviewed and/or edited this written report and agrees with it. Electronically signed by: Frankie Courtney MD Impressions 05/05/2024 2:42 PM COIL TIER 1. ??Irregular 1.0 cm enhancing mass in the central outer right breast at posterior depth consistent with biopsy-proven malignancy. Surrounding non-mass enhancement measures up to 2.5 cm, some of which may represent postbiopsy change. 2. ??Mild non-mass enhancement in the slightly upper central right breast at posterior depth is most consistent with postbiopsy change related to additional benign right breast biopsy. 3. ??No MR evidence of malignancy in the left breast. OVERALL FINAL ASSESSMENT: BI-RADS Category 6: Known Biopsy-Proven Malignancy. RECOMMENDATION: Continued clinical and oncologic management of known malignancy. Dictated by: Hafsa Pierson M.D. The radiology attending physician has personally reviewed this study, and had reviewed and/or edited this written report and agrees with it. Electronically signed by: Frankie Courtney MD Narrative 05/05/2024 2:42 PM COIL TIER EXAMINATION: 1. MRI EXAMINATION OF THE BREASTS WITH AND WITHOUT CONTRAST 2. 3D POST PROCESSING ON A DEDICATED 3D WORKSTATION HISTORY: High-risk Screening. ??55-year-old woman with newly diagnosed right breast invasive mammary carcinoma with lobular features at 9:00, 7 cm from the nipple undergoing initial staging. ??Also with biopsy of a right breast mass at 9:30, 3 cm from the nipple with benign findings demonstrating apocrine metaplasia and columnar cell hyperplasia. ??Biopsy of a right axillary lymph node was benign. TECHNIQUE: MRI examination of the breasts per breast tumor protocol with and without gadolinium contrast. ??A dedicated breast imaging coil was used. ??The images were transferred to a breast CAD system for 3D post processing and contrast kinetics analysis. ?? CONTRAST: Gadoterate meglumine, 20 ml COMPARISON: 04/25/2024] mammogram and additional prior studies dating back to 2020. ??No prior breast MRI. BREAST COMPOSITION: Scattered fibroglandular tissue BACKGROUND PARENCHYMAL ENHANCEMENT: Mild FINDINGS: There is a 1.0 cm irregular enhancing mass in the central far outer right breast at far posterior depth consistent with biopsy-proven malignancy (F- 24.5). ??There is central susceptibility artifact most consistent with biopsy tissue marker. ??There is surrounding non-mass enhancement measuring approximately 1.3 cm anteroposterior x 2.5 cm transverse x 1.5 cm craniocaudal, some of which may represent postbiopsy change (F- 33.5). ?? There is mild non-mass enhancement within the slightly upper central right breast at posterior depth most consistent with postbiopsy change related to benign right breast biopsy (F- 12.5). ??There is no additional suspicious enhancing mass or non-mass enhancement in the right breast. There is no suspicious enhancing mass or non-mass enhancement within the left breast. No abnormally enlarged lymph nodes are identified in the visualized portions of either axilla. Procedure Note Frankie Courtney MD - 05/05/2024 EXAMINATION: 1. MRI EXAMINATION OF THE BREASTS WITH AND WITHOUT CONTRAST 2. 3D POST PROCESSING ON A DEDICATED 3D WORKSTATION HISTORY: High-risk Screening. 55-year-old woman with newly diagnosed right breast invasive mammary carcinoma with lobular features at 9:00, 7 cm from the nipple undergoing initial staging. Also with biopsy of a right breast mass at 9:30, 3 cm from the nipple with benign findings demonstrating apocrine metaplasia and columnar cell hyperplasia. Biopsy of a right axillary lymph node was benign. TECHNIQUE: MRI examination of the breasts per breast tumor protocol with and without gadolinium contrast. A dedicated breast imaging coil was used. The images were transferred to a breast CAD system for 3D post processing and contrast kinetics analysis. CONTRAST: Gadoterate meglumine, 20 ml COMPARISON: 04/25/2024] mammogram and additional prior studies dating back to 2020. No prior breast MRI. BREAST COMPOSITION: Scattered fibroglandular tissue BACKGROUND PARENCHYMAL ENHANCEMENT: Mild FINDINGS: There is a 1.0 cm irregular enhancing mass in the central far outer right breast at far posterior depth consistent with biopsy-proven malignancy (F- 24.5). There is central susceptibility artifact most consistent with biopsy tissue marker. There is surrounding non-mass enhancement measuring approximately 1.3 cm anteroposterior x 2.5 cm transverse x 1.5 cm craniocaudal, some of which may represent postbiopsy change (F- 33.5). There is mild non-mass enhancement within the slightly upper central right breast at posterior depth most consistent with postbiopsy change related to benign right breast biopsy (F- 12.5). There is no additional suspicious enhancing mass or non-mass enhancement in the right breast. There is no suspicious enhancing mass or non-mass enhancement within the left breast. No abnormally enlarged lymph nodes are identified in the visualized portions of either axilla. IMPRESSION: 1. Irregular 1.0 cm enhancing mass in the central outer right breast at posterior depth consistent with biopsy-proven malignancy. Surrounding non-mass enhancement measures up to 2.5 cm, some of which may represent postbiopsy change. 2. Mild non-mass enhancement in the slightly upper central right breast at posterior depth is most consistent with postbiopsy change related to additional benign right breast biopsy. 3. No MR evidence of malignancy in the left breast. OVERALL FINAL ASSESSMENT: BI-RADS Category 6: Known Biopsy-Proven Malignancy. RECOMMENDATION: Continued clinical and oncologic management of known malignancy. Dictated by: Hafsa Pierson M.D. The radiology attending physician has personally reviewed this study, and had reviewed and/or edited this written report and agrees with it. Electronically signed by: Frankie Courtney MD us Edelmira Pierce MD PhD IMG MRI PROCEDURES Edited Result - Final * Jerod Post Clip Placement Right (04/25/2024 1:37 PM COIL TIER) Anatomical Region Laterality Modality Breast Right Mammography 04/25/2024 3:30 PM COIL TIER Addenda Addendum by Jazzmine Prasad MD on 04/28/2024 12:33 PM COIL TIER ADDENDUM: Pathology from biopsy of the right breast showed: A. Breast, right, 9:00, 7 cm from nipple, ultrasound-guided biopsy (Hydromark dragonfly-shaped tissue marker) ? - Invasive mammary carcinoma with lobular features ?- Histologic grade = 1/3 (tub2 + nuc2 + mit1 = 5/9) by ESBR criteria ?- Tumor size = at least 4 mm in core biopsy material Please refer to pathology report for details. Pathology of this site in the RIGHT breast (Hydromark dragonfly-shaped tissue marker) is malignant and concordant. Surgical management is recommended. Additionally, preoperative breast MRI is recommended for evaluation of extent of disease (unless there are contraindications to MRI), given far posterior location of the biopsy-proven malignant mass close to the underlying musculature, and given lobular features on pathology. B. Breast, right, 9:30, 3 cm from nipple, ultrasound-guided biopsy (ribbon-shaped tissue marker) ? - Breast with apocrine metaplasia and columnar cell hyperplasia ? - No evidence of atypia or malignancy Please refer to pathology report for details. Pathology of this site in the RIGHT breast (ribbon-shaped tissue marker) is benign and concordant. Pathology from biopsy of the right axilla showed: C. Lymph node, right axillary, biopsy (twirl-shaped tissue marker) ? - Lymph node with no evidence of malignancy Please refer to pathology report for details. Pathology of the RIGHT axillary lymph node (twirl-shaped tissue marker) is benign and concordant. As above, surgical management for the known biopsy-proven malignant RIGHT breast mass is recommended. Recommend RIGHT axillary sentinel node biopsy at that time. Additionally, preoperative breast MRI is recommended for evaluation of extent of disease (unless there are contraindications to MRI), given far posterior location of the biopsy-proven right breast malignant mass close to the underlying musculature, and given lobular features on pathology. Results and recommendations will be discussed with the patient by [facility] or referring provider staff and will be separately documented in the medical record. Electronically signed by: Jazzmine Prasad M.D. Impressions 04/25/2024 3:30 PM COIL TIER Successful biopsies of the RIGHT breast, 2 lesions/sites, and RIGHT axillary lymph node of interest utilizing sonographic guidance. Pathology and cytology are pending. ASSESSMENT: Post Procedure Mammograms for Marker Placement Electronically signed by: Jazzmine Prasad M.D. Narrative 04/25/2024 3:30 PM COIL TIER EXAMINATION: RIGHT BREAST CORE BIOPSY UTILIZING SONOGRAPHIC GUIDANCE, TWO LESIONS/SITES, RIGHT AXILLARY LYMPH NODE CORE NEEDLE BIOPSY UTILIZING SONOGRAPHIC GUIDANCE, PLACEMENT OF THREE BIOPSY TISSUE MARKER CLIPS BIOPSY TISSUE MARKER CLIPS, AND RIGHT FULL FIELD DIGITAL MAMMOGRAM WITH DIGITAL BREAST TOMOSYNTHESIS HISTORY: ??Abnormal breast imaging. ??63-year-old woman with outside hospital screen detected mass in the RIGHT breast, which is felt to correspond to a low suspicion mass in the RIGHT breast at the 9:30 position, 3 cm from the nipple, however there is also an irregular highly suspicious breast mass at the 9 o'clock position, 7 cm from the nipple which is located posterior to the screen detected oval mass on mammography. ??Additionally, the patient has undergone RIGHT axillary ultrasound and was found to have 1 mildly thickened RIGHT axillary lymph node. ??Ultrasound guided core needle biopsy is requested to evaluate for malignancy. COMPARISON: Prior mammograms dating back to 09/23/2020, most recent from 04/04/2024, 03/21/2024, and 02/05/2023. ??Right breast axillary ultrasound from earlier today and RIGHT breast ultrasound from 04/04/2024. BREAST PARENCHYMAL COMPOSITION: There are scattered areas of fibroglandular density. PROCEDURE AND FINDINGS: The risks and potential benefits of the procedures were discussed with the patient and written informed consent was obtained. Mammographic images of the RIGHT breast were obtained prior to the procedure and demonstrates a spiculated mass in the posterior slightly upper RIGHT breast, and only on the MLO view is identified a spiculated mass in the posterior central to slightly upper RIGHT breast which is felt to correspond to the irregular mass detected on outside hospital ultrasound (labeled as 9 o'clock position, 5 cm from the nipple on the study from 04/04/2024, but detected at the 9 o'clock position, 7 cm from the nipple on the ultrasound earlier today). ??Additionally, oval masses seen in the slightly upper outer RIGHT breast anterior to this. ??This is felt to correspond to the low suspicion mass likely representing a cyst at the 9:30 position, 3 cm from the nipple on images from earlier today. LESION/SITE 1 of 2: Right breast mass at the 9 o'clock position, 7 cm from the nipple After sterile preparation of the skin, 1% lidocaine and 2% lidocaine with epinephrine were utilized for local anesthesia. ??A small skin incision was made with a #11 scalpel blade. ??A 14G spring-loaded biopsy needle was then advanced through the skin incision to the edge of the lesion of interest at the 9 o'clock position, 7 cm from the nipple in the RIGHT breast from an inferolateral approach utilizing sonographic guidance. A total of 5 tissue cores were obtained through the lesion. ??A Mammotome Hydromark dragonfly tissue marker clip was then placed at the biopsy site. Hemostasis was achieved. ??Dermabond and an ice pack were applied. ??The tissue cores were submitted to surgical pathology in formalin for histologic analysis. LESION/SITE 2 of 2: Right breast mass at the 9:30 position, 3 cm from the nipple After sterile preparation of the skin, 1% lidocaine and 2% lidocaine with epinephrine were utilized for local anesthesia. ??A small skin incision was made with a #11 scalpel blade. ??A 14G vacuum-assisted biopsy needle was then advanced through the skin incision to the edge of the lesion of interest at the 9:30 position, 3 cm from the nipple in the RIGHT breast from a lateral approach utilizing sonographic guidance. A total of 5 tissue cores were obtained through the lesion. An UltraClip ribbon-shaped tissue marker clip was then placed at the biopsy site. Hemostasis was achieved. ??Dermabond and an ice pack were applied. ??The tissue cores were submitted to surgical pathology in formalin for histologic analysis. RIGHT AXILLARY LYMPH NODE CORE BIOPSY At the time of the ultrasound-guided biopsy of the lymph node in the RIGHT axilla, an additional mildly prominent lymph node was noted deeper in the RIGHT axilla with cortex measuring up to approximately 3.2 cm. ??This was felt to be similar in appearance to the larger node located more superficially, and the smaller deeper node was located vertically adjacent to large vessels. ??Therefore, the more superficial node was targeted for biopsy. After sterile preparation of the skin, 1% lidocaine and 2% lidocaine with epinephrine were utilized for local anesthesia. ??A small skin incision was made with a #11 scalpel blade. ??A 16G spring-loaded biopsy needle was then advanced through the skin incision to the edge of the lymph node of interest in the RIGHT axilla from a lateral approach utilizing sonographic guidance. A total of 4 tissue cores were obtained through the lymph node. ??A Bard Twirl tissue marker clip was then placed at the biopsy site. Hemostasis was achieved. Dermabond and an ice pack were applied. ??The tissue core(s) were submitted to surgical pathology in formalin for histologic analysis. There was no evidence of significant immediate complication. The patient was given verbal as well as written post procedural instructions prior to release from the department. ??A multi-view RIGHT digital mammogram, including digital breast tomosynthesis, obtained post procedure demonstrates that the tissue marker clips are in expected position. ??Note that the twirl-shaped tissue marker was not well visualized on these exams due to far superior location. The attending radiologist, Dr. Jazzmine Prasad M.D., was present throughout the entire procedure. ?? Procedure Note Jazzmine Prasad MD - 04/25/2024 EXAMINATION: RIGHT BREAST CORE BIOPSY UTILIZING SONOGRAPHIC GUIDANCE, TWO LESIONS/SITES, RIGHT AXILLARY LYMPH NODE CORE NEEDLE BIOPSY UTILIZING SONOGRAPHIC GUIDANCE, PLACEMENT OF THREE BIOPSY TISSUE MARKER CLIPS BIOPSY TISSUE MARKER CLIPS, AND RIGHT FULL FIELD DIGITAL MAMMOGRAM WITH DIGITAL BREAST TOMOSYNTHESIS HISTORY: Abnormal breast imaging. 63-year-old woman with outside hospital screen detected mass in the RIGHT breast, which is felt to correspond to a low suspicion mass in the RIGHT breast at the 9:30 position, 3 cm from the nipple, however there is also an irregular highly suspicious breast mass at the 9 o'clock position, 7 cm from the nipple which is located posterior to the screen detected oval mass on mammography. Additionally, the patient has undergone RIGHT axillary ultrasound and was found to have 1 mildly thickened RIGHT axillary lymph node. Ultrasound guided core needle biopsy is requested to evaluate for malignancy. COMPARISON: Prior mammograms dating back to 09/23/2020, most recent from 04/04/2024, 03/21/2024, and 02/05/2023. Right breast axillary ultrasound from earlier today and RIGHT breast ultrasound from 04/04/2024. BREAST PARENCHYMAL COMPOSITION: There are scattered areas of fibroglandular density. PROCEDURE AND FINDINGS: The risks and potential benefits of the procedures were discussed with the patient and written informed consent was obtained. Mammographic images of the RIGHT breast were obtained prior to the procedure and demonstrates a spiculated mass in the posterior slightly upper RIGHT breast, and only on the MLO view is identified a spiculated mass in the posterior central to slightly upper RIGHT breast which is felt to correspond to the irregular mass detected on outside hospital ultrasound (labeled as 9 o'clock position, 5 cm from the nipple on the study from 04/04/2024, but detected at the 9 o'clock position, 7 cm from the nipple on the ultrasound earlier today). Additionally, oval masses seen in the slightly upper outer RIGHT breast anterior to this. This is felt to correspond to the low suspicion mass likely representing a cyst at the 9:30 position, 3 cm from the nipple on images from earlier today. LESION/SITE 1 of 2: Right breast mass at the 9 o'clock position, 7 cm from the nipple After sterile preparation of the skin, 1% lidocaine and 2% lidocaine with epinephrine were utilized for local anesthesia. A small skin incision was made with a #11 scalpel blade. A 14G spring-loaded biopsy needle was then advanced through the skin incision to the edge of the lesion of interest at the 9 o'clock position, 7 cm from the nipple in the RIGHT breast from an inferolateral approach utilizing sonographic guidance. A total of 5 tissue cores were obtained through the lesion. A Mammotome Hydromark dragonfly tissue marker clip was then placed at the biopsy site. Hemostasis was achieved. Dermabond and an ice pack were applied. The tissue cores were submitted to surgical pathology in formalin for histologic analysis. LESION/SITE 2 of 2: Right breast mass at the 9:30 position, 3 cm from the nipple After sterile preparation of the skin, 1% lidocaine and 2% lidocaine with epinephrine were utilized for local anesthesia. A small skin incision was made with a #11 scalpel blade. A 14G vacuum-assisted biopsy needle was then advanced through the skin incision to the edge of the lesion of interest at the 9:30 position, 3 cm from the nipple in the RIGHT breast from a lateral approach utilizing sonographic guidance. A total of 5 tissue cores were obtained through the lesion. An UltraClip ribbon-shaped tissue marker clip was then placed at the biopsy site. Hemostasis was achieved. Dermabond and an ice pack were applied. The tissue cores were submitted to surgical pathology in formalin for histologic analysis. RIGHT AXILLARY LYMPH NODE CORE BIOPSY At the time of the ultrasound-guided biopsy of the lymph node in the RIGHT axilla, an additional mildly prominent lymph node was noted deeper in the RIGHT axilla with cortex measuring up to approximately 3.2 cm. This was felt to be similar in appearance to the larger node located more superficially, and the smaller deeper node was located vertically adjacent to large vessels. Therefore, the more superficial node was targeted for biopsy. After sterile preparation of the skin, 1% lidocaine and 2% lidocaine with epinephrine were utilized for local anesthesia. A small skin incision was made with a #11 scalpel blade. A 16G spring-loaded biopsy needle was then advanced through the skin incision to the edge of the lymph node of interest in the RIGHT axilla from a lateral approach utilizing sonographic guidance. A total of 4 tissue cores were obtained through the lymph node. A IMScoutingirl tissue marker clip was then placed at the biopsy site. Hemostasis was achieved. Dermabond and an ice pack were applied. The tissue core(s) were submitted to surgical pathology in formalin for histologic analysis. There was no evidence of significant immediate complication. The patient was given verbal as well as written post procedural instructions prior to release from the department. A multi-view RIGHT digital mammogram, including digital breast tomosynthesis, obtained post procedure demonstrates that the tissue marker clips are in expected position. Note that the twirl-shaped tissue marker was not well visualized on these exams due to far superior location. The attending radiologist, Dr. Jazzmine Prasad M.D., was present throughout the entire procedure. IMPRESSION: Successful biopsies of the RIGHT breast, 2 lesions/sites, and RIGHT axillary lymph node of interest utilizing sonographic guidance. Pathology and cytology are pending. ASSESSMENT: Post Procedure Mammograms for Marker Placement Electronically signed by: Jazzmine Prasad M.D. Scott Jimenez DO IMG MAMMO PROCEDURES Edite d Result - Final * US Guided Breast Biopsy Right (04/25/2024 1:07 PM COIL TIER) Anatomical Region Laterality Modality Breast Right Ultrasound 04/25/2024 3:30 PM COIL TIER Addenda Addendum by Jazzmine Prasad MD on 04/28/2024 12:33 PM COIL TIER ADDENDUM: Pathology from biopsy of the right breast showed: A. Breast, right, 9:00, 7 cm from nipple, ultrasound-guided biopsy (Hydromark dragonfly-shaped tissue marker) ? - Invasive mammary carcinoma with lobular features ?- Histologic grade = 1/3 (tub2 + nuc2 + mit1 = 5/9) by ESBR criteria ?- Tumor size = at least 4 mm in core biopsy material Please refer to pathology report for details. Pathology of this site in the RIGHT breast (Hydromark dragonfly-shaped tissue marker) is malignant and concordant. Surgical management is recommended. Additionally, preoperative breast MRI is recommended for evaluation of extent of disease (unless there are contraindications to MRI), given far posterior location of the biopsy-proven malignant mass close to the underlying musculature, and given lobular features on pathology. B. Breast, right, 9:30, 3 cm from nipple, ultrasound-guided biopsy (ribbon-shaped tissue marker) ? - Breast with apocrine metaplasia and columnar cell hyperplasia ? - No evidence of atypia or malignancy Please refer to pathology report for details. Pathology of this site in the RIGHT breast (ribbon-shaped tissue marker) is benign and concordant. Pathology from biopsy of the right axilla showed: C. Lymph node, right axillary, biopsy (twirl-shaped tissue marker) ? - Lymph node with no evidence of malignancy Please refer to pathology report for details. Pathology of the RIGHT axillary lymph node (twirl-shaped tissue marker) is benign and concordant. As above, surgical management for the known biopsy-proven malignant RIGHT breast mass is recommended. Recommend RIGHT axillary sentinel node biopsy at that time. Additionally, preoperative breast MRI is recommended for evaluation of extent of disease (unless there are contraindications to MRI), given far posterior location of the biopsy-proven right breast malignant mass close to the underlying musculature, and given lobular features on pathology. Results and recommendations will be discussed with the patient by [facility] or referring provider staff and will be separately documented in the medical record. Electronically signed by: Jazzmine Prasad M.D. Impressions 04/25/2024 3:30 PM COIL TIER Successful biopsies of the RIGHT breast, 2 lesions/sites, and RIGHT axillary lymph node of interest utilizing sonographic guidance. Pathology and cytology are pending. ASSESSMENT: Post Procedure Mammograms for Marker Placement Electronically signed by: Jazzmine Prasad M.D. Narrative 04/25/2024 3:30 PM COIL TIER EXAMINATION: RIGHT BREAST CORE BIOPSY UTILIZING SONOGRAPHIC GUIDANCE, TWO LESIONS/SITES, RIGHT AXILLARY LYMPH NODE CORE NEEDLE BIOPSY UTILIZING SONOGRAPHIC GUIDANCE, PLACEMENT OF THREE BIOPSY TISSUE MARKER CLIPS BIOPSY TISSUE MARKER CLIPS, AND RIGHT FULL FIELD DIGITAL MAMMOGRAM WITH DIGITAL BREAST TOMOSYNTHESIS HISTORY: ??Abnormal breast imaging. ??63-year-old woman with outside hospital screen detected mass in the RIGHT breast, which is felt to correspond to a low suspicion mass in the RIGHT breast at the 9:30 position, 3 cm from the nipple, however there is also an irregular highly suspicious breast mass at the 9 o'clock position, 7 cm from the nipple which is located posterior to the screen detected oval mass on mammography. ??Additionally, the patient has undergone RIGHT axillary ultrasound and was found to have 1 mildly thickened RIGHT axillary lymph node. ??Ultrasound guided core needle biopsy is requested to evaluate for malignancy. COMPARISON: Prior mammograms dating back to 09/23/2020, most recent from 04/04/2024, 03/21/2024, and 02/05/2023. ??Right breast axillary ultrasound from earlier today and RIGHT breast ultrasound from 04/04/2024. BREAST PARENCHYMAL COMPOSITION: There are scattered areas of fibroglandular density. PROCEDURE AND FINDINGS: The risks and potential benefits of the procedures were discussed with the patient and written informed consent was obtained. Mammographic images of the RIGHT breast were obtained prior to the procedure and demonstrates a spiculated mass in the posterior slightly upper RIGHT breast, and only on the MLO view is identified a spiculated mass in the posterior central to slightly upper RIGHT breast which is felt to correspond to the irregular mass detected on outside hospital ultrasound (labeled as 9 o'clock position, 5 cm from the nipple on the study from 04/04/2024, but detected at the 9 o'clock position, 7 cm from the nipple on the ultrasound earlier today). ??Additionally, oval masses seen in the slightly upper outer RIGHT breast anterior to this. ??This is felt to correspond to the low suspicion mass likely representing a cyst at the 9:30 position, 3 cm from the nipple on images from earlier today. LESION/SITE 1 of 2: Right breast mass at the 9 o'clock position, 7 cm from the nipple After sterile preparation of the skin, 1% lidocaine and 2% lidocaine with epinephrine were utilized for local anesthesia. ??A small skin incision was made with a #11 scalpel blade. ??A 14G spring-loaded biopsy needle was then advanced through the skin incision to the edge of the lesion of interest at the 9 o'clock position, 7 cm from the nipple in the RIGHT breast from an inferolateral approach utilizing sonographic guidance. A total of 5 tissue cores were obtained through the lesion. ??A Mammotome Hydromark dragonfly tissue marker clip was then placed at the biopsy site. Hemostasis was achieved. ??Dermabond and an ice pack were applied. ??The tissue cores were submitted to surgical pathology in formalin for histologic analysis. LESION/SITE 2 of 2: Right breast mass at the 9:30 position, 3 cm from the nipple After sterile preparation of the skin, 1% lidocaine and 2% lidocaine with epinephrine were utilized for local anesthesia. ??A small skin incision was made with a #11 scalpel blade. ??A 14G vacuum-assisted biopsy needle was then advanced through the skin incision to the edge of the lesion of interest at the 9:30 position, 3 cm from the nipple in the RIGHT breast from a lateral approach utilizing sonographic guidance. A total of 5 tissue cores were obtained through the lesion. An UltraClip ribbon-shaped tissue marker clip was then placed at the biopsy site. Hemostasis was achieved. ??Dermabond and an ice pack were applied. ??The tissue cores were submitted to surgical pathology in formalin for histologic analysis. RIGHT AXILLARY LYMPH NODE CORE BIOPSY At the time of the ultrasound-guided biopsy of the lymph node in the RIGHT axilla, an additional mildly prominent lymph node was noted deeper in the RIGHT axilla with cortex measuring up to approximately 3.2 cm. ??This was felt to be similar in appearance to the larger node located more superficially, and the smaller deeper node was located vertically adjacent to large vessels. ??Therefore, the more superficial node was targeted for biopsy. After sterile preparation of the skin, 1% lidocaine and 2% lidocaine with epinephrine were utilized for local anesthesia. ??A small skin incision was made with a #11 scalpel blade. ??A 16G spring-loaded biopsy needle was then advanced through the skin incision to the edge of the lymph node of interest in the RIGHT axilla from a lateral approach utilizing sonographic guidance. A total of 4 tissue cores were obtained through the lymph node. ??A Bard Twirl tissue marker clip was then placed at the biopsy site. Hemostasis was achieved. Dermabond and an ice pack were applied. ??The tissue core(s) were submitted to surgical pathology in formalin for histologic analysis. There was no evidence of significant immediate complication. The patient was given verbal as well as written post procedural instructions prior to release from the department. ??A multi-view RIGHT digital mammogram, including digital breast tomosynthesis, obtained post procedure demonstrates that the tissue marker clips are in expected position. ??Note that the twirl-shaped tissue marker was not well visualized on these exams due to far superior location. The attending radiologist, Dr. Jazzmine Prasad M.D., was present throughout the entire procedure. ?? Procedure Note Jazzmine Prasad MD - 04/25/2024 EXAMINATION: RIGHT BREAST CORE BIOPSY UTILIZING SONOGRAPHIC GUIDANCE, TWO LESIONS/SITES, RIGHT AXILLARY LYMPH NODE CORE NEEDLE BIOPSY UTILIZING SONOGRAPHIC GUIDANCE, PLACEMENT OF THREE BIOPSY TISSUE MARKER CLIPS BIOPSY TISSUE MARKER CLIPS, AND RIGHT FULL FIELD DIGITAL MAMMOGRAM WITH DIGITAL BREAST TOMOSYNTHESIS HISTORY: Abnormal breast imaging. 63-year-old woman with outside hospital screen detected mass in the RIGHT breast, which is felt to correspond to a low suspicion mass in the RIGHT breast at the 9:30 position, 3 cm from the nipple, however there is also an irregular highly suspicious breast mass at the 9 o'clock position, 7 cm from the nipple which is located posterior to the screen detected oval mass on mammography. Additionally, the patient has undergone RIGHT axillary ultrasound and was found to have 1 mildly thickened RIGHT axillary lymph node. Ultrasound guided core needle biopsy is requested to evaluate for malignancy. COMPARISON: Prior mammograms dating back to 09/23/2020, most recent from 04/04/2024, 03/21/2024, and 02/05/2023. Right breast axillary ultrasound from earlier today and RIGHT breast ultrasound from 04/04/2024. BREAST PARENCHYMAL COMPOSITION: There are scattered areas of fibroglandular density. PROCEDURE AND FINDINGS: The risks and potential benefits of the procedures were discussed with the patient and written informed consent was obtained. Mammographic images of the RIGHT breast were obtained prior to the procedure and demonstrates a spiculated mass in the posterior slightly upper RIGHT breast, and only on the MLO view is identified a spiculated mass in the posterior central to slightly upper RIGHT breast which is felt to correspond to the irregular mass detected on outside hospital ultrasound (labeled as 9 o'clock position, 5 cm from the nipple on the study from 04/04/2024, but detected at the 9 o'clock position, 7 cm from the nipple on the ultrasound earlier today). Additionally, oval masses seen in the slightly upper outer RIGHT breast anterior to this. This is felt to correspond to the low suspicion mass likely representing a cyst at the 9:30 position, 3 cm from the nipple on images from earlier today. LESION/SITE 1 of 2: Right breast mass at the 9 o'clock position, 7 cm from the nipple After sterile preparation of the skin, 1% lidocaine and 2% lidocaine with epinephrine were utilized for local anesthesia. A small skin incision was made with a #11 scalpel blade. A 14G spring-loaded biopsy needle was then advanced through the skin incision to the edge of the lesion of interest at the 9 o'clock position, 7 cm from the nipple in the RIGHT breast from an inferolateral approach utilizing sonographic guidance. A total of 5 tissue cores were obtained through the lesion. A Mammotome Hydromark dragonfly tissue marker clip was then placed at the biopsy site. Hemostasis was achieved. Dermabond and an ice pack were applied. The tissue cores were submitted to surgical pathology in formalin for histologic analysis. LESION/SITE 2 of 2: Right breast mass at the 9:30 position, 3 cm from the nipple After sterile preparation of the skin, 1% lidocaine and 2% lidocaine with epinephrine were utilized for local anesthesia. A small skin incision was made with a #11 scalpel blade. A 14G vacuum-assisted biopsy needle was then advanced through the skin incision to the edge of the lesion of interest at the 9:30 position, 3 cm from the nipple in the RIGHT breast from a lateral approach utilizing sonographic guidance. A total of 5 tissue cores were obtained through the lesion. An UltraClip ribbon-shaped tissue marker clip was then placed at the biopsy site. Hemostasis was achieved. Dermabond and an ice pack were applied. The tissue cores were submitted to surgical pathology in formalin for histologic analysis. RIGHT AXILLARY LYMPH NODE CORE BIOPSY At the time of the ultrasound-guided biopsy of the lymph node in the RIGHT axilla, an additional mildly prominent lymph node was noted deeper in the RIGHT axilla with cortex measuring up to approximately 3.2 cm. This was felt to be similar in appearance to the larger node located more superficially, and the smaller deeper node was located vertically adjacent to large vessels. Therefore, the more superficial node was targeted for biopsy. After sterile preparation of the skin, 1% lidocaine and 2% lidocaine with epinephrine were utilized for local anesthesia. A small skin incision was made with a #11 scalpel blade. A 16G spring-loaded biopsy needle was then advanced through the skin incision to the edge of the lymph node of interest in the RIGHT axilla from a lateral approach utilizing sonographic guidance. A total of 4 tissue cores were obtained through the lymph node. A Notion Systemsl tissue marker clip was then placed at the biopsy site. Hemostasis was achieved. Dermabond and an ice pack were applied. The tissue core(s) were submitted to surgical pathology in formalin for histologic analysis. There was no evidence of significant immediate complication. The patient was given verbal as well as written post procedural instructions prior to release from the department. A multi-view RIGHT digital mammogram, including digital breast tomosynthesis, obtained post procedure demonstrates that the tissue marker clips are in expected position. Note that the twirl-shaped tissue marker was not well visualized on these exams due to far superior location. The attending radiologist, Dr. Jazzmine Prasad M.D., was present throughout the entire procedure. IMPRESSION: Successful biopsies of the RIGHT breast, 2 lesions/sites, and RIGHT axillary lymph node of interest utilizing sonographic guidance. Pathology and cytology are pending. ASSESSMENT: Post Procedure Mammograms for Marker Placement Electronically signed by: Jazzmine Prasad M.D. Scott Jimenez DO [facility] MAMMO PROCEDURES Edite d Result - Final * Surgical pathology (04/25/2024 12:13 PM COIL TIER) Tissue (Breast biopsy, needle core) 04/25/2024 12:13 PM COIL TIER Comment:RIGHT breast - sono biopsy - mass - 9:00 7cmfn - BIRADS 4C - dragonfly clip - this is an irregular mass which is highly suspicious for malignancy Tissue (Breast biopsy, needle core) 04/25/2024 12:24 PM COIL TIER Comment:RIGHT breast - sono biopsy - mass - 9:30 3cmfn - BIRADS 4A - ribbon clip - this is a 7 mm mass which is probably a cyst Tissue (Lymph node, needle biopsy) 04/25/2024 12:53 PM COIL TIER Comment:RIGHT axilla - sono core biopsy - lymph node - BIRADS 4A - twirl clip - mildly thickened right axillary node ipsilateral to a suspicious breast mass Narrative [facility] - 04/28/2024 10:16 AM COIL TIER EPIC results best viewed via link to PDF [facility] [address] [facility] [place] [address] Note to Patients: This report may contain a detailed description of human tissue sent by a health care provider to the laboratory for pathologic evaluation. The content of this report is essential for diagnosis and may provide important critical findings. This information may be unfamiliar to patients to review without a medical professional present. It is advised that the patient review this report in the presence of a health care provider who can answer questions and explain the details. SURGICAL PATHOLOGY REPORT FINAL WITH ADDENDUM Patient Name: ?? CATHERINE SINGLETON Gender: ??F : ??1960 (Age: 63) Address: ??[address] [place] [address] , [place], [place] ??[address] Hospital #: ??[id number] Taken:04/25/2024 Received:04/25/2024 Reported: 04/28/2024 Patient Type: [facility] Ancillary ?? Service: Laboratory Location: Physician(s): ??MD Scott Shaikh, Diagnosis: A. Breast, right, 9:00, 7 cm from nipple, ultrasound-guided biopsy ? - Invasive mammary carcinoma with lobular features ?- Histologic grade = 1/3 (tub2 + nuc2 + mit1 = 5/9) by ESBR criteria ?- Tumor size = at least 4 mm in core biopsy material ? - Biomarkers pending B. Breast, right, 9:30, 3 cm from nipple, ultrasound-guided biopsy ? - Breast with apocrine metaplasia and columnar cell hyperplasia ? - No evidence of atypia or malignancy C. Lymph node, right axillary, biopsy ? - Lymph node with no evidence of malignancy lilia/04/28/2024 09:26 By this signature, I attest that the above diagnosis is based upon my personal examination of the slides(and/or other material indicated in the diagnosis). Mendel Tello M.D. Report Electronically Reviewed and Signed Out By ??Mendel Tello M.D. 04/28/2024 10:16:53 Laurie Humphrey M.D. History: The patient is a 63-year-old woman presenting for abnormal mammogram showing suspicious right-sided lesions and a thickened axillary lymph node, prompting biopsy evaluation. Operative procedure: ??Right breast sono biopsies bi rads 4C and 4A, and right axilla sono core biopsy BI-RADS 4A. Specimen(s) Received: A: Right breast - sono biopsy - mass - 9:00 7cmfn - birads 4c B: Right breast - sono biopsy - mass - 9:30 3cmfn - birads 4a C: Riight axilla - sono core biopsy - lymph node - birads 4a Gross Description: Received in three formalin jars labeled with the patient's identifiers. A. ??Labeled right breast sono biopsy mass 9:00 7 cm FN bi rads 4C are five yellow cores of fibrofatty tissue measuring 0.6 to 1.4 cm in length by 0.1 cm in diameter. ?? Labeled A1 to A3. Jar 0. ??Total fixation time= 9.0 hours. B. ??Labeled right breast sono biopsy mass 9:30 3 cm FN BI-RADS 4A are five yellow cores of fibrofatty tissue measuring 2.0 to 2.6 cm in length by 0.2 cm in diameter. ?? Labeled B1 to B3. Jar 0. ??Total fixation time= 8.5 hours. C. ??Labeled right axilla sono core biopsy lymph node BI-RADS 4A are seven bonilla-red cores of fibrofatty tissue 0.2 to 1.2 cm. ?? Labeled C1 to C2. Jar 0. ??Total fixation time= 8.0 hours. ?? elsw/04/25/2024 18:44 PA(s): Chacha Lomeli By this signature, I attest that the above diagnosis is based upon my personal examination of the slides(and/or other material). Addenda/Procedures Addendum Ordered:04/29/2024Status:Signed OutAddendum Complete:04/29/2024y:Mendel Tello M.D.Addendum Signed Out:04/29/2024 Addendum Diagnosis ? BREAST BIOMARKER RESULTS ? ESTROGEN RECEPTOR: ?Positive ? Chiara Score: ?Proportion ??5/5 ?Intensity ??3/3 ?Total Score 8/8 ? PROGESTERONE RECEPTOR: ?Positive ? Chiara Score: ?Proportion ??5/5 ?Intensity ??3/3 ?Total Score 8/8 ? HER-2: ?Negative (score 0 by IHC) ? Technical Notes ? Estrogen receptor (ER), progesterone receptor (VA), and HER2 were evaluated by immunohistochemistry (IHC) ? by morphometric analysis in routine formalin-fixed paraffin-embedded tissue using a proprietary polymer- ? based detection system and instrumentation by [employer] per knitter operator's ? recommendation. ? The IHC results for ER (antibody SP1) and VA (antibody 1E2) were quantified and interpreted (positive vs ? negative) using the Chiara score (total score range = 0 to 8; positive >2) (see: Mod Pathol 11:155, 1998; J Clin ? Oncol 17:1474, 1999; Mod Pathol 17:1545, 2004; Arch Pathol Lab Med 144:545, 2020). ? Pathway Her2 is a trademark of [employer] The IHC results for Pathway Her2 (antibody 4B5 ? rabbit monoclonal antibody) were scored in compliance with the ASCO/CAP guidelines (see: J Clin Oncol ? 25:118, 2007; Arch Pathol Lab Med 131:18, 2007, Arch Pathol Lab Med 142:1364, 2018). ? Chiara score for estrogen and progesterone receptor evaluation: ? The Chiara score combines the percentage of positive cells [proportion score: 0 (0%), 1 (<1%), 2 (1-10%), 3 (11- ? 33%), 4 (34-66%), 5 (>67%)] and the intensity of the reaction product (intensity score: 0-3). ??The two scores are ? added together for a final score. ??A combined score of >2 is considered positive. ? Her2 Interpretation guide ? Score 0: No membrane staining is observed, or immunoreactivity in <=10% of tumor cells; score 1+: incomplete ? membrane staning that is faint/barely perceptible and within >10% of tumor cells; score 2+: circumferential ? membrane staining that is incomplete and/or weak/moderate and within >10% of tumor cells, or complete and ? circumferential membrane staining that is intense and within <=10% of tumor cells; score 3+: intense and ? uniform circumferential membrane staining in >10% of tumor cells. ??A strong membranous (chicken-wire) ? pattern should be present. ? Ki-67 Technical Note and Interpretation: ? Testing for Ki-67 is performed at the request of the ? clinical teams. Ki-67 was evaluated by ? immunohistochemistry (IHC) in routine formalin-fixed ? paraffin-embedded tissue using rabbit monoclonal antibody ? to Ki-67 (clone [id number])and a proprietary polymer-based ? detection system andinstrumentation by [employer] per knitter operator's recommendation. ? The index was determined by manual morphometric ? analysis of at least 3 high power perez and calculating the ? proportion of tumor cells with positive nuclear staining. ? Control expression, sample adequacy, and uniformity of ? staining were all assessed. For uniform staining the index ? is determined by 3 randomly selected high power perez ? and calculating the proportion of tumor cells with positive ? nuclear staining. For non-uniform staining, the average ? across the stained specimen is reported (see: J Natl ? Cancer Inst 103:1656, 2011). ? Given the absence of inter-laboratory standardization for ? this assay, proliferation indices must be interpreted with ? caution and no prognostic thresholds can be provided. ? Published thresholds may or may not be relevant to the ? reported results and findings should be interpreted in ? conjunction with allother relevant clinical and pathological ? data. Addendum Comment See breast biomarker synoptic report. ?? By this signature, I attest that the above diagnosis is based upon my personal examination of the slides(and/or other material indicated in the diagnosis). Mendel Tello M.D.Report Electronically Reviewed and Signed Out By ??Mendel Tello M.D. ??04/29/2024 10:16:25Laurie Humphrey M.D. ?? The performance characteristics of some immunohistochemical stains, fluorescence in-situ hybridization tests and immunophenotyping by flow cytometry cited in this report (if any) were determined by the Surgical Pathology and Flow Cytometry Departments at [facility] as part of an ongoing assistant quality manager program and in compliance with federally mandated regulations drawn from the Clinical Laboratory Improvement Act of 1988 (CLIA '88). ??Some of these tests rely on the use of analyte specific reagents and are subject to specific labeling requirements by the US Food and Drug Administration. ??Such diagnostic tests may only be performed in a facility that is certified by the Department of Health and Human Services as a high complexity laboratory under CLIA '88. ??The FDA has determined that such clearance or approval is not necessary. ??This test is used for clinical purposes. ??It should not be regarded as investigational or for research. ??Nevertheless, federal rules concerning the medical use of analyte specific reagents require that the following disclaimer be attached to the report: This test was developed and its performance characteristics determined by the Surgical Pathology and Flow Cytometry Departments of [facility]. ??It has not been cleared or approved by the U. S. Food and Drug Administration. IMAGES AND SCANNED DOCUMENTS, IF INCLUDED, ONLY VIEWABLE IN PDF VERSION OF REPORT Scott Jimenez DO LAB PATHOLOGY ORDERABLES F inal Result PATHOLOGY [facility] 3rd Floor [place], [place] [phone] * US Breast Right Limited (04/25/2024 10:37 AM COIL TIER) Anatomical Region Laterality Modality Breast Right Ultrasound 04/25/2024 12:0 8 PM COIL TIER Impressions 04/25/2024 12:08 PM COIL TIER Irregular spiculated mass identified at 9:00, 7 cm from the nipple. This corresponds to the irregular mass identified on outside ultrasound. ??This mass however is located far more posteriorly on the mammogram. ??This is highly suspicious for malignancy and further evaluation with ultrasound core biopsy is recommended. Slightly more anterior oval circumscribed mass on the mammogram corresponds to an oval circumscribed mass identified on ultrasound at 9:30, 3 cm from the nipple. ??This is low suspicion and may represent a cyst however ultrasound core biopsy will be obtained for further evaluation. There is one abnormal right axillary lymph node identified for which ultrasound-guided biopsy is recommended. OVERALL FINAL ASSESSMENT: SUSPICIOUS. BI-RADS Category 4C: High suspicion for malignancy. RECOMMENDATION: Ultrasound-guided biopsy of ??2 right breast masses and one right axillary lymph node. Electronically signed by: RASHMI DWYER MD Narrative 04/25/2024 12:08 PM COIL TIER EXAMINATION: RIGHT BREAST ULTRASOUND HISTORY: 63-year-old female suspicious mass within the right breast with imaging and workup done at outside facility. ??Targeted right axillary ultrasound. COMPARISON: Outside mammogram from 04/04/2024, 03/21/2024, 02/05/2023 and outside ultrasound from 04/04/2024 TECHNIQUE: Directed ultrasound evaluation of the RIGHT breast was performed. ULTRASOUND FINDINGS: Targeted ultrasound was obtained through the right breast to reevaluate the suspicious mass at 9:00 described at outside facility. There is an irregular hypoechoic mass with an echogenic rim and posterior shadowing identified at 9:00 located 7 cm from the nipple. There are some internal vascularity. ??This corresponds to the mass described on outside ultrasound at 9:00 5 cm from the nipple. ?? This irregular mass corresponds to a spiculated mass located far posteriorly at 9:00 on mammogram obtained today. In addition an additional oval circumscribed masses identified in the right breast at 9:30, 3 cm from the nipple this measures 7 x 4 mm. There is some posterior acoustic enhancement with no internal vascularity identified. ??This is probably a benign cyst and felt to correspond to the more round circumscribed mass that is seen on the most recent outside mammogram from 04/04/2024. Evaluation of the right axilla demonstrates one axillary lymph node with cortical thickness of about 5 mm. ??The remainder of the lymph nodes appear morphologically normal. Procedure Note Rashmi Dwyer MD - 04/25/2024 EXAMINATION: RIGHT BREAST ULTRASOUND HISTORY: 63-year-old female suspicious mass within the right breast with imaging and workup done at outside facility. Targeted right axillary ultrasound. COMPARISON: Outside mammogram from 04/04/2024, 03/21/2024, 02/05/2023 and outside ultrasound from 04/04/2024 TECHNIQUE: Directed ultrasound evaluation of the RIGHT breast was performed. ULTRASOUND FINDINGS: Targeted ultrasound was obtained through the right breast to reevaluate the suspicious mass at 9:00 described at outside facility. There is an irregular hypoechoic mass with an echogenic rim and posterior shadowing identified at 9:00 located 7 cm from the nipple. There are some internal vascularity. This corresponds to the mass described on outside ultrasound at 9:00 5 cm from the nipple. This irregular mass corresponds to a spiculated mass located far posteriorly at 9:00 on mammogram obtained today. In addition an additional oval circumscribed masses identified in the right breast at 9:30, 3 cm from the nipple this measures 7 x 4 mm. There is some posterior acoustic enhancement with no internal vascularity identified. This is probably a benign cyst and felt to correspond to the more round circumscribed mass that is seen on the most recent outside mammogram from 04/04/2024. Evaluation of the right axilla demonstrates one axillary lymph node with cortical thickness of about 5 mm. The remainder of the lymph nodes appear morphologically normal. IMPRESSION: Irregular spiculated mass identified at 9:00, 7 cm from the nipple. This corresponds to the irregular mass identified on outside ultrasound. This mass however is located far more posteriorly on the mammogram. This is highly suspicious for malignancy and further evaluation with ultrasound core biopsy is recommended. Slightly more anterior oval circumscribed mass on the mammogram corresponds to an oval circumscribed mass identified on ultrasound at 9:30, 3 cm from the nipple. This is low suspicion and may represent a cyst however ultrasound core biopsy will be obtained for further evaluation. There is one abnormal right axillary lymph node identified for which ultrasound-guided biopsy is recommended. OVERALL FINAL ASSESSMENT: SUSPICIOUS. BI-RADS Category 4C: High suspicion for malignancy. RECOMMENDATION: Ultrasound-guided biopsy of 2 right breast masses and one right axillary lymph node. Electronically signed by: RASHMI DWYER MD Scott Jimenez DO IMG MAMMO PROCEDURES Final Result * Breast Imaging DX Outside Consult (04/18/2024 5:48 PM COIL TIER) Anatomical Region Laterality Modality Breast N/A Mammography 04/22/2024 10:4 3 AM COIL TIER Impressions 04/22/2024 12:01 PM COIL TIER 1. ??Irregular, hypoechoic 0.4 cm mass in the RIGHT breast at 9:00, 5 cm from the nipple. ??This is of high suspicion for malignancy and ultrasound-guided biopsy is recommended. 2. ??No mammographic evidence of malignancy in the LEFT breast. The method of initial detection of finding was 3D screening mammography (Sdbt). OVERALL FINAL ASSESSMENT: SUSPICIOUS. BI-RADS Category 4C: High suspicion for malignancy. RECOMMENDATION: 1. ??Ultrasound-guided biopsy of the RIGHT breast mass at 9:00, 5 cm from the nipple. 2. ??RIGHT axillary ultrasound is recommended, which could be performed on the day of biopsy. NOTE: The findings, conclusions and recommendations within this report do not replace the initial findings, conclusions and recommendations made at the facility where the study was performed based upon the imaging and clinical condition at that time. ??Review of the prior report and correlation with the clinical history are necessary. The provided images may or may not represent the [place] source data set and thus may contain changes which may lower the sensitivity of the second opinion interpretation. Dictated by: Mojgan La M.D. The radiology attending physician has personally reviewed this study, and had reviewed and/or edited this written report and agrees with it. Electronically signed by: RASHMI DWYER MD Narrative 04/22/2024 12:01 PM COIL TIER EXAMINATION: REVIEW AND INTERPRETATION OF OUTSIDE IMAGING FACILITY PERFORMING OUTSIDE IMAGING: [facility] EXAM(S) REVIEWED: 1. ??BILATERAL SCREENING MAMMOGRAM WITH TOMOSYNTHESIS, 03/21/2024 2. ??RIGHT UNILATERAL DIAGNOSTIC MAMMOGRAM WITH TOMOSYNTHESIS, 04/04/2024 DATE OF INTERPRETATION: 04/21/2024 HISTORY: 63-year-old woman with outside hospital screening detected RIGHT breast mass. COMPARISON: Prior mammograms dating back to 2020. BREAST PARENCHYMAL COMPOSITION: There are scattered areas of fibroglandular density. FINDINGS: BILATERAL SCREENING MAMMOGRAM 03/21/2024: There is a new mass in the posterior slightly outer central RIGHT breast. No new suspicious mammographic abnormality in the LEFT breast. RIGHT BREAST DIAGNOSTIC MAMMOGRAM 04/04/2024: Additional views confirm an oval mass with partially indistinct, partially circumscribed margins in the posterior outer central RIGHT breast. Outside hospital sonogram reports an irregular hypoechoic mass with posterior acoustic shadowing at 9:00, 5 cm from the nipple. ??No internal vascularity. ??The mass measures 0.4 x 0.4 cm and corresponds to the screen detected mass. A simple cyst is reported in the RIGHT breast at 10:00, 1 cm from the nipple. Procedure Note Rashmi Dwyer MD - 04/22/2024 EXAMINATION: REVIEW AND INTERPRETATION OF OUTSIDE IMAGING FACILITY PERFORMING OUTSIDE IMAGING: [facility] EXAM(S) REVIEWED: 1. BILATERAL SCREENING MAMMOGRAM WITH TOMOSYNTHESIS, 03/21/2024 2. RIGHT UNILATERAL DIAGNOSTIC MAMMOGRAM WITH TOMOSYNTHESIS, 04/04/2024 DATE OF INTERPRETATION: 04/21/2024 HISTORY: 63-year-old woman with outside hospital screening detected RIGHT breast mass. COMPARISON: Prior mammograms dating back to 2020. BREAST PARENCHYMAL COMPOSITION: There are scattered areas of fibroglandular density. FINDINGS: BILATERAL SCREENING MAMMOGRAM 03/21/2024: There is a new mass in the posterior slightly outer central RIGHT breast. No new suspicious mammographic abnormality in the LEFT breast. RIGHT BREAST DIAGNOSTIC MAMMOGRAM 04/04/2024: Additional views confirm an oval mass with partially indistinct, partially circumscribed margins in the posterior outer central RIGHT breast. Outside hospital sonogram reports an irregular hypoechoic mass with posterior acoustic shadowing at 9:00, 5 cm from the nipple. No internal vascularity. The mass measures 0.4 x 0.4 cm and corresponds to the screen detected mass. A simple cyst is reported in the RIGHT breast at 10:00, 1 cm from the nipple. IMPRESSION: 1. Irregular, hypoechoic 0.4 cm mass in the RIGHT breast at 9:00, 5 cm from the nipple. This is of high suspicion for malignancy and ultrasound-guided biopsy is recommended. 2. No mammographic evidence of malignancy in the LEFT breast. The method of initial detection of finding was 3D screening mammography (Sdbt). OVERALL FINAL ASSESSMENT: SUSPICIOUS. BI-RADS Category 4C: High suspicion for malignancy. RECOMMENDATION: 1. Ultrasound-guided biopsy of the RIGHT breast mass at 9:00, 5 cm from the nipple. 2. RIGHT axillary ultrasound is recommended, which could be performed on the day of biopsy. NOTE: The findings, conclusions and recommendations within this report do not replace the initial findings, conclusions and recommendations made at the facility where the study was performed based upon the imaging and clinical condition at that time. Review of the prior report and correlation with the clinical history are necessary. The provided images may or may not represent the [place] source data set and thus may contain changes which may lower the sensitivity of the second opinion interpretation. Dictated by: Mojgan La M.D. The radiology attending physician has personally reviewed this study, and had reviewed and/or edited this written report and agrees with it. Electronically signed by: RASHMI DWYER MD Scott Jimenez DO IMG MAMMO PROCEDURES Final Result * Breast Imaging Diagnostic Outside Reference (04/04/2024 12:05 AM COIL TIER) Impressions [facility]_MAMMO[facility] - 04/18/2024 5:36 PM COIL TIER These images are for Reference purposes only and have not been reviewed by [facility] Radiology. ??There will be no report generated by a [facility] Radiologist. Narrative [facility]_MAMMO[facility] - 04/18/2024 5:36 PM COIL TIER EXAMINATION: ??Images For Reference Purposes Only us Scott Jimenez DO IMG MAMMO PROCEDURES Final Result Performing Organization Address [facility] Co de Phone Number [email or web address] * Breast Imaging US Outside Reference (04/04/2024 12:00 AM COIL TIER) Impressions [facility] - 04/18/2024 5:36 PM COIL TIER These images are for Reference purposes only and have not been reviewed by [facility]iology. ??There will be no report generated by a [facility] Radiologist. Narrative [facility]MAMMO[facility] - 04/18/2024 5:36 PM COIL TIER EXAMINATION: ??Images For Reference Purposes Only Scott Jimenez DO IMG MAMMO PROCEDURES Final Result Performing Organization Address [facility] de Phone Number [email or web address] * Breast Imaging Screening Outside Reference (03/21/2024 12:00 AM COIL TIER) Impressions [facility] - 04/18/2024 5:36 PM COIL TIER These images are for Reference purposes only and have not been reviewed by [facility] Radiology. ??There will be no report generated by a [facility] Radiologist. Narrative [facility]_MAMMO[facility] - 04/18/2024 5:36 PM COIL TIER EXAMINATION: ??Images For Reference Purposes Only Scott Jimenez DO IMG MAMMO PROCEDURES Final Result Performing Organization Address [facility] Co de Phone Number [email or web address] * Pap and High Risk HPV, reflex to Genotyping (01/16/2022 11:41 AM CDT) Thin prep (Pap test) 01/16/2022 11:41 AM CDT 01/16/2022 1:23 PM CDT Narrative PATHOLOGY [facility] - 01/23/2022 2:01 PM CDT EPIC results best viewed via link to PDF [facility] [place] [address] Note to Patients: This report may contain a detailed description of human tissue sent by a health care provider to the laboratory for pathologic evaluation. The content of this report is essential for diagnosis and may provide important critical findings. This information may be unfamiliar to patients to review without a medical professional present. It is advised that the patient review this report in the presence of a health care provider who can answer questions and explain the details. CYTOPATHOLOGY REPORT FINAL Patient Name: ??CATHERINE SINGLETON Gender: ??F : ??1960 (Age: 61) Address: ??[address] [place] [address], [place], [place] ??[address] Hospital #: ??[id number] Service: ??CHRONIC MANAGER Location: ?? Patient Type: ??[facility] SPECIMEN Taken: ??01/16/2022 Received: ??01/16/2022 Accessioned: ??01/18/2022 Reported: ??01/23/2022 Physician(s): ??Carmencita Neri M.D. ?? FINAL INTERPRETATION SOURCE OF SPECIMEN: ? Liquid based Thin Prep pap with HPV STATEMENT OF ADEQUACY: ?- Satisfactory for evaluation ?- No endocervical/transformation zone sample present in a post menopausal patient GENERAL CATEGORY: ?- Negative for squamous intraepithelial lesion or malignancy Comments HPV Result: ??NEGATIVE for high risk types of Human Papilloma Virus (HPV) RNA This probe detects the presence of HPV types: 16, 18, 31, 33, 35, 39, 45, 51, 52, 56, 58, 59, 66 and 68. ??This HPV test was performed at [facility] in [place], [place] utilizing the Gen-Probe Aptima assay. [facility]/01/23/2022 14:01 ANDREI Cline(ASCP), [facility] Report Electronically Reviewed and Signed Out By ANDREI Cline(ASCP), [facility] 01/23/2022 14:01:45 Cervicovaginal Cytology (Pap Test) Disclaimer: The Pap test is a screening test used to detect cervical cancer and its precursors; it is not a diagnostic procedure. False negative and false positive results do occur. Pap test results should be interpreted in the context of pertinent clinical information and biopsy results as indicated. Gross Description A. ??Liquid based Thin Prep pap with HPV: ??Cervical/vaginal - Screening ThinPrep ?? Clinical Diagnosis and History Last Menstrual Period: PM The patient is a 61 year old woman with screening. The HPV test was performed by [facility], [address] [place] [address]. Report Images and scanned documents, if included only viewable in PDF version The performance characteristics of some immunohistochemical stains, in-situ hybridization and fluorescence in-situ hybridization tests and immunophenotyping by flow cytometry cited in this report (if any) were determined by the Surgical Pathology Department at [facility] as part of an ongoing assistant quality manager program and in compliance with federally mandated regulations drawn from the Clinical Laboratory Improvement Act of 1988 (CLIA '88). ??Some of these tests rely on the use of analyte specific reagents and are subject to specific labeling requirements by the US Food and Drug Administration. ??Such diagnostic tests may only be performed in a facility that is certified by the Department of Health and Human Services as a high complexity laboratory under CLIA '88. ??The FDA has determined that such clearance or approval is not necessary. ??This test is used for clinical purposes. ??It should not be regarded as investigational or for research. ??Nevertheless, federal rules concerning the medical use of analyte specific reagents require that the following disclaimer be attached to the report: This test was developed and its performance characteristics determined by the Surgical Pathology Department of [facility]. ??It has not been cleared or approved by the U. S. Food and Drug Administration. Sheri Johnson NP LAB CYTOLOGY ORDERABLES Final Result PATHOLOGY [facility] 3[address] Floor [place], [place] [phone] from Last 3 Months or Most Recently Relevant to Health [place] [address] [employer] [facility] [place] [address] [facility] [place] [address] [place] [place] [address] [employer] Care Teams [employer] Developer Relationship Specialty Start Date End Date Scott Jimenez DO PCP - General 04/29/18 Gill Asif MD [address] [facility] [address] [phone] Consulting Physician Interventional Cardiology 01/29/23
--- OUTSIDE RECORDS SUMMARY | 2024-05-15 12:37 | XMS_ITS | Clinical Summary ---
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 Gender Identity Not on file Sexual Orientation Not on file Plan of Treatment Health Maintenance Due Date Last Done Comments Hepatitis C Virus (HCV) Screening 1960 TdaP Immunization 1960 Pap Smear 1981 Cervical Cancer Screening (CCS) 1990 HPV/Cotest 1990 Colonoscopy 2005 Colorectal Cancer Screening 2005 Cologuard 2010 Immunochemical Fecal Occult Blood 2010 Mammogram 2010 Pneumococcal Immunization (5 0+ years) (1 of 1 - PCV) 2010 Zoster Immunization (1 of 2) 2010 Influenza Immunization (#1) 2023 SARS-COV-2 Immunization (2023-25 season) 2023 Respiratory Syncytial Virus (RSV) Immunization (Adult) (1 - 1-dose 75+ series) 11/01/2035 Hepatitis B Immunization Aged Out No longer eligible based on patient's age to complete this topic Meningococcal Immunization (ACWY) Aged Out No longer eligible based on patient's age to complete this topic Rotavirus Immunization Aged Out No lo nger eligible based on patient's age to complete this topic
--- OUTSIDE RECORDS SUMMARY | 2024-05-15 12:38 | XMS_ITS | Referral Summary ---
Author Organization [facility] Address [address] [place] [address] Care Team Providers Care Health Therapist Name Role Phone Scott Jimenez DO Primary Care Provider [phone] Gill Asif MD Unavailable [phone] Encounters Date Type Department Care Team Description 05/14/2024 2:00 PM SUBJECT SCIENTIFIC RESEARCH Office Visit [facility] Surgery [address] [place] [phone] Edelmira Pierce MD PhD History of invasive breast cancer 05/07/2024 Telephone [facility] Surgery [address] [place] [phone] Christian Caldwell 05/05/2024 10:07 AM SUBJECT SCIENTIFIC RESEARCH - 05/05/2024 11:59 PM SUBJECT SCIENTIFIC RESEARCH Hospital Encounter [facility] [address] [place] [phone] Edelmira Pierce MD PhD Invasive lobular carcinoma of right breast in female (HCC) Discharge Disposition: Discharge to home or self care 04/29/2024 Orders Only [facility] Surgery [address] [place] [phone] Edelmira Pierce MD PhD Invasive lobular carcinoma of right breast in female (HCC) (Primary Dx) 04/28/2024 Telephone [facility] ([facility]) [address] [place] [phone] Imelda Wright RN Test Results (Right breast x2 and right axillary LN biopsy path results from 04/25/24.) 04/25/2024 10:38 AM SUBJECT SCIENTIFIC RESEARCH - 04/25/2024 11:59 PM SUBJECT SCIENTIFIC RESEARCH Hospital Encounter [facility] ([facility]) [address] [place] [address] Abnormal ultrasound Discharge Disposition: Discharge to home or self care 04/25/2024 9:42 AM SUBJECT SCIENTIFIC RESEARCH - 04/25/2024 11:59 PM SUBJECT SCIENTIFIC RESEARCH Hospital Encounter [facility] ([facility]) [address] [place] [phone] Abnormal ultrasound Discharge Disposition: Discharge to home or self care 04/25/2024 9:38 AM SUBJECT SCIENTIFIC RESEARCH - 04/25/2024 11:59 PM SUBJECT SCIENTIFIC RESEARCH Hospital Encounter [facility] ([facility]) [address] [place] [phone] Abnormal mammogram Discharge Disposition: Discharge to home or self care 04/24/2024 Telephone [facility] ([facility]) [address] [place] [phone] Melva Olvera RN 04/23/2024 Telephone [facility] ([facility]) [address] [place] [phone] Onelia Mccann, EDILSON 04/18/2024 5:35 PM SUBJECT SCIENTIFIC RESEARCH - 04/18/2024 11:59 PM SUBJECT SCIENTIFIC RESEARCH Hospital Encounter [facility] ([facility]) [address] [place] [phone] Discharge Disposition: Discharge to home or self care 04/15/2024 Telephone [facility] ([facility]) [address] [place] [phone] Onelia Mccann, EDILSON 04/11/2024 Telephone [facility] ([facility]) [address] [place] [address] Imelda Wright RN Appointment (Scheduling of breast biopsy) 04/04/2024 12:05 AM SUBJECT SCIENTIFIC RESEARCH - 04/04/2024 11:59 PM SUBJECT SCIENTIFIC RESEARCH Hospital Encounter [facility] ([facility]) [address] [place] [address] Discharge Disposition: Discharge to home or self care 04/04/2024 - 04/04/2024 11:59 PM SUBJECT SCIENTIFIC RESEARCH Hospital Encounter [facility] ([facility]) [address] [place] [address] Discharge Disposition: Discharge to home or self care 03/21/2024 - 03/21/2024 11:59 PM SUBJECT SCIENTIFIC RESEARCH Hospital Encounter [facility] ([facility]) [address] [place] [address] Discharge Disposition: Discharge to home or self care from Last 3 Months Allergies No known active allergies Medications levothyroxine [...] urine 07/01/2014 Pain in female pelvis 10/07/2013 Immunizations Name Administration Dates Next Due Influenza, Quadrivalent, Michelle l Culture-based MDCK, Preservative Free, Antibiotic Free, Intramuscular 03/06/2023 Social History Tobacco Use Types Packs/Day Years Used Date Smoking Tobacco: Never Tobacco Cessation:Counseling Given: Not Answered Comments No Sex and Gender Information Value Date Recorded Sex Assigned at Not on file Legal Sex Female 10:39 AM SUBJECT SCIENTIFIC RESEARCH Gender Identity Female 04/20/2024 4:40 PM SUBJECT SCIENTIFIC RESEARCH Sexual Orientation Straight 04/20/2024 4: 40 PM SUBJECT SCIENTIFIC RESEARCH Last Filed Vital Signs Vital Sign Reading Time Taken Comments Blood Pressure 146/84 09/04/2023 9:09 AM CDT Pulse 66 09/04/2023 9:09 AM CDT Temperature 36.4 ??C (97.5 ??F) 04/29/2018 1 2:42 PM SUBJECT SCIENTIFIC RESEARCH Respiratory Rate 23 04/29/2018 3:30 PM SUBJECT SCIENTIFIC RESEARCH Oxygen Saturation 95% 09/04/2023 9:09 AM CDT Inhaled Oxygen Concentration - - Weight 103.2 kg (227 lb 9.6 oz) 05/14/2024 2:00 PM SUBJECT SCIENTIFIC RESEARCH Height 162.6 cm (5' 4 ) 05/14/2024 2:00 PM SUBJECT SCIENTIFIC RESEARCH Body Mass Index 39.07 05/14/2024 2:00 PM SUBJECT SCIENTIFIC RESEARCH Plan of Treatment Not on file Medical Devices Implanted Type Area Joint Sealer Device Identifier Shelf Expiration Date Model / Serial / Lot Bard Peripheral Vascular Ultraclip Bard 17ga 10cm 2 Trigger Permanent Ultrasound [id number] - [id number] Implanted:Qty: 1 on 04/25/2024 at [facility] Right: Breast Bard Peripheral Vascular [id number] / / [employer] Marker Image Hydromark Plus T5 Titanium 15ga Radiological Implant Sterile 5117-34-05-T5 - [id number] Implanted:Qty: 1 on 04/25/2024 at [facility] Right: Breast [employer] [id number] 04/03/20254009-05-1 5-T5 / / [id number] Bard Peripheral Vascular Marker Breast Ring Shape Radiopaque Nitinol Ultracor Twirl 95gmg96ri Uctw17 - [id number] Implanted:Qty: 1 on 04/25/2024 at [facility] Right: Axilla Bard Peripheral Vascular [id number] / / Procedures Procedure Name Priority Date/Time Associated Diagnosis Comments MRI BREAST BILATERAL W WO CONTRAST Schedule Routine, Read Routine (OP Routine) 05/05/2024 11:33 AM SUBJECT SCIENTIFIC RESEARCH Invasive lobular carcinoma of right breast in female (HCC) JEROD POST CLIP PLACEMENT RIGHT Schedule Routine, Read Routine (OP Routine) 04/25/2024 1:37 PM SUBJECT SCIENTIFIC RESEARCH Abnormal ultrasound US GUIDED BREAST BIOPSY RIGHT Schedule Routine, Read Routine (OP Routine) 04/25/2024 1:07 PM SUBJECT SCIENTIFIC RESEARCH Abnormal mammogram SURGICAL PATHOLOGY Routine 04/25/2024 12 :13 PM SUBJECT SCIENTIFIC RESEARCH Abnormal mammogram US BREAST RIGHT LIMITED Schedule Routine, Read Routine (OP Routine) 04/25/2024 10:37 AM SUBJECT SCIENTIFIC RESEARCH Abnormal ultrasound BREAST IMAGING MG DIAGNOSTIC OUTSIDE CONSULT Routine 04/18/2024 5:48 PM SUBJECT SCIENTIFIC RESEARCH BREAST IMAGING MG DIAGNOSTIC OUTSIDE REFERENCE Routine 04/04/2024 12:05 AM SUBJECT SCIENTIFIC RESEARCH BREAST IMAGING US OUTSIDE REFERENCE Routine 04/04/2024 12:00 AM SUBJECT SCIENTIFIC RESEARCH BREAST IMAGING MG SCREENING OUTSIDE REFERENCE Routine 03/21/2024 12:00 AM SUBJECT SCIENTIFIC RESEARCH PAP AND HIGH RISK HPV, REFLEX TO GENOTYPING Routine 01/16/2022 11:41 AM CDT Screening for cervical cancer from Last 3 Months or Most Recently Relevant to Health Maintenance Results * MRI Breast Bilateral W WO Contrast (05/05/2024 11:33 AM SUBJECT SCIENTIFIC RESEARCH) Anatomical Region Laterality Modality Breast Bilateral Magnetic Resonan ce 05/05/2024 2:16 PM SUBJECT SCIENTIFIC RESEARCH Addenda Addendum by Frankie Courtney MD on 05/05/2024 3:05 PM SUBJECT SCIENTIFIC RESEARCH In addition, the enhancing biopsy-proven central outer [...] Frankie Courtney MD Impressions 05/05/2024 2:42 PM SUBJECT SCIENTIFIC RESEARCH 1. ??Irregular 1.0 cm enhancing mass in [...] Frankie Courtney MD Narrative 05/05/2024 2:42 PM SUBJECT SCIENTIFIC RESEARCH EXAMINATION: 1. MRI EXAMINATION OF THE BREASTS [...] Post Clip Placement Right (04/25/2024 1:37 PM SUBJECT SCIENTIFIC RESEARCH) Anatomical Region Laterality Modality Breast Right Mammography 04/25/2024 3:30 PM SUBJECT SCIENTIFIC RESEARCH Addenda Addendum by Jazzmine Prasad MD on 04/28/2024 12:33 PM SUBJECT SCIENTIFIC RESEARCH ADDENDUM: Pathology from biopsy of the right [...] will be discussed with the patient by [facility] or referring provider staff and will be separately documented in the medical record. Electronically signed by: Jazzmine Prasad M.D. Impressions 04/25/2024 3:30 PM SUBJECT SCIENTIFIC RESEARCH Successful biopsies of the RIGHT breast, 2 lesions/sites, and RIGHT axillary lymph node of interest utilizing sonographic guidance. Pathology and cytology are pending. ASSESSMENT: Post Procedure Mammograms for Marker Placement Electronically signed by: Jazzmine Prasad M.D. Narrative 04/25/2024 3:30 PM SUBJECT SCIENTIFIC RESEARCH EXAMINATION: RIGHT BREAST CORE BIOPSY UTILIZING SONOGRAPHIC [...] were obtained through the lymph node. ??A Motosmarty Twirl tissue marker clip was then placed [...] were obtained through the lymph node. A Bard Twirl tissue marker clip was then [...] Placement Electronically signed by: Jazzmine Prasad M.D. us Scott Jimenez DO IMG MAMMO PROCEDURES Edite d Result - Final * US Guided Breast Biopsy Right (04/25/2024 1:07 PM SUBJECT SCIENTIFIC RESEARCH) Anatomical Region Laterality Modality Breast Right Ultrasound 04/25/2024 3:30 PM SUBJECT SCIENTIFIC RESEARCH Addenda Addendum by Jazzmine Prasad MD on 04/28/2024 12:33 PM SUBJECT SCIENTIFIC RESEARCH ADDENDUM: Pathology from biopsy of the right [...] will be discussed with the patient by [facility] or referring provider staff and will be separately documented in the medical record. Electronically signed by: Jazzmine Prasad M.D. Impressions 04/25/2024 3:30 PM SUBJECT SCIENTIFIC RESEARCH Successful biopsies of the RIGHT breast, 2 lesions/sites, and RIGHT axillary lymph node of interest utilizing sonographic guidance. Pathology and cytology are pending. ASSESSMENT: Post Procedure Mammograms for Marker Placement Electronically signed by: Jazzmine Prasad M.D. Narrative 04/25/2024 3:30 PM SUBJECT SCIENTIFIC RESEARCH EXAMINATION: RIGHT BREAST CORE BIOPSY UTILIZING SONOGRAPHIC [...] were obtained through the lymph node. ??A Motosmarty Twirl tissue marker clip was then placed [...] were obtained through the lymph node. A Bard Twirl tissue marker clip was then [...] Final * Surgical pathology (04/25/2024 12:13 PM SUBJECT SCIENTIFIC RESEARCH) Tissue (Breast biopsy, needle core) 04/25/2024 12:13 PM SUBJECT SCIENTIFIC RESEARCH Comment:RIGHT breast - sono biopsy - mass - 9:00 7cmfn - BIRADS 4C - dragonfly clip - this is an irregular mass which is highly suspicious for malignancy Tissue (Breast biopsy, needle core) 04/25/2024 12:24 PM SUBJECT SCIENTIFIC RESEARCH Comment:RIGHT breast - sono biopsy - mass - 9:30 3cmfn - BIRADS 4A - ribbon clip - this is a 7 mm mass which is probably a cyst Tissue (Lymph node, needle biopsy) 04/25/2024 12:53 PM SUBJECT SCIENTIFIC RESEARCH Comment:RIGHT axilla - sono core biopsy - lymph node - BIRADS 4A - twirl clip - mildly thickened right axillary node ipsilateral to a suspicious breast mass Narrative PATHOLOGY [facility] - 04/28/2024 10:16 AM SUBJECT SCIENTIFIC RESEARCH EPIC results best viewed via link to PDF [facility] [place] [address] Note to Patients: This report may contain [...] Gender: ??F : ??1960 (Age: 63) Address: ??[address] [place] [address] ??[id number] Hospital #: ??[id number] Taken:04/25/2024 Received:04/25/2024 Reported: 04/28/2024 Patient Type: [facility] Ancillary ?? Service: Laboratory Location: Physician(s): ??MD Scott Shaikh, DO Diagnosis: A. Breast, right, 9:00, 7 cm [...] Notes ? Estrogen receptor (ER), progesterone receptor (MI), and HER2 were evaluated by immunohistochemistry (IHC) ? by morphometric analysis in routine formalin-fixed paraffin-embedded tissue using a proprietary polymer- ? based detection system and instrumentation by [employer] per gas plant worker's ? recommendation. ? The IHC results for ER (antibody SP1) and MI (antibody 1E2) were quantified and interpreted (positive vs ? negative) using the Chiara score (total score range = 0 to 8; positive >2) (see: Mod Pathol 11:155, 1998; J Clin ? Oncol 17:1474, 1999; Mod Pathol 17:1545, 2004; Arch Pathol Lab Med 144:545, 2020). ? Pathway Her2 is a trademark of [employer] The IHC results for Pathway Her2 [...] proprietary polymer-based ? detection system andinstrumentation by [employer] ? [employer] per gas plant worker's recommendation. ? The index was determined by [...] Surgical Pathology and Flow Cytometry Departments at [facility] as part of an ongoing quality supervisor program and in compliance with federally mandated [...] Surgical Pathology and Flow Cytometry Departments of [facility]. ??It has not been cleared or approved by the U. S. Food and Drug Administration. IMAGES AND SCANNED DOCUMENTS, IF INCLUDED, ONLY VIEWABLE IN PDF VERSION OF REPORT Scott Jimenez DO LAB PATHOLOGY ORDERABLES F inal Result PATHOLOGY [facility] 3rd Floor [place], [place] [phone] * US Breast Right Limited (04/25/2024 10:37 AM SUBJECT SCIENTIFIC RESEARCH) Anatomical Region Laterality Modality Breast Right Ultrasound 04/25/2024 12:0 8 PM SUBJECT SCIENTIFIC RESEARCH Impressions 04/25/2024 12:08 PM SUBJECT SCIENTIFIC RESEARCH Irregular spiculated mass identified at 9:00, 7 [...] RASHMI DWYER MD Narrative 04/25/2024 12:08 PM SUBJECT SCIENTIFIC RESEARCH EXAMINATION: RIGHT BREAST ULTRASOUND HISTORY: 63-year-old female [...] Imaging DX Outside Consult (04/18/2024 5:48 PM SUBJECT SCIENTIFIC RESEARCH) Anatomical Region Laterality Modality Breast N/A Mammography 04/22/2024 10:4 3 AM SUBJECT SCIENTIFIC RESEARCH Impressions 04/22/2024 12:01 PM SUBJECT SCIENTIFIC RESEARCH 1. ??Irregular, hypoechoic 0.4 cm mass in [...] images may or may not represent the grand traverse source data set and thus may contain changes which may lower the sensitivity of the second opinion interpretation. Dictated by: Mojgan La M.D. The radiology attending physician has personally reviewed this study, and had reviewed and/or edited this written report and agrees with it. Electronically signed by: RASHMI DWYER MD Narrative 04/22/2024 12:01 PM SUBJECT SCIENTIFIC RESEARCH EXAMINATION: REVIEW AND INTERPRETATION OF OUTSIDE IMAGING FACILITY PERFORMING OUTSIDE IMAGING: [facility] EXAM(S) REVIEWED: 1. ??BILATERAL SCREENING MAMMOGRAM [...] OF OUTSIDE IMAGING FACILITY PERFORMING OUTSIDE IMAGING: [facility] EXAM(S) REVIEWED: 1. BILATERAL SCREENING MAMMOGRAM [...] images may or may not represent the grand traverse source data set and thus may contain [...] Imaging Diagnostic Outside Reference (04/04/2024 12:05 AM SUBJECT SCIENTIFIC RESEARCH) Impressions RAD_[email or web address] - 04/18/2024 5:36 PM SUBJECT SCIENTIFIC RESEARCH These images are for Reference purposes only and have not been reviewed by [facility] Radiology. ??There will be no report generated by a [facility] Radiologist. Narrative RAD_MAMMO_[facility] - 04/18/2024 5:36 PM SUBJECT SCIENTIFIC RESEARCH EXAMINATION: ??Images For Reference Purposes Only Scott Jimenez DO IMG MAMMO PROCEDURES Final Result Performing Organization Address [facility] de Phone Number [email or web address] * Breast Imaging US Outside Reference (04/04/2024 12:00 AM SUBJECT SCIENTIFIC RESEARCH) Impressions [facility] - 04/18/2024 5:36 PM SUBJECT SCIENTIFIC RESEARCH These images are for Reference purposes only and have not been reviewed by [facility] Radiology. ??There will be no report generated by a [facility] Radiologist. Narrative [facility] - 04/18/2024 5:36 PM SUBJECT SCIENTIFIC RESEARCH EXAMINATION: ??Images For Reference Purposes Only Scott Jimenez DO IMG MAMMO PROCEDURES Final Result Performing Organization Address [facility] de Phone Number [email or web address] * Breast Imaging Screening Outside Reference (03/21/2024 12:00 AM SUBJECT SCIENTIFIC RESEARCH) Impressions [facility] - 04/18/2024 5:36 PM SUBJECT SCIENTIFIC RESEARCH These images are for Reference purposes only and have not been reviewed by [facility] Radiology. ??There will be no report generated by a [facility] Radiologist. Narrative [facility]_M[facility]MO[facility] - 04/18/2024 5:36 PM SUBJECT SCIENTIFIC RESEARCH EXAMINATION: ??Images For Reference Purposes Only Scott Jimenez DO IMG MAMMO PROCEDURES Final Result Performing Organization Address [facility] Co de Phone Number [email or web address] * Pap and High Risk HPV, reflex to Genotyping (01/16/2022 11:41 AM CDT) Thin prep (Pap test) 01/16/2022 11:41 AM CDT 01/16/2022 1:23 PM CDT Narrative PATHOLOGY [facility] - 01/23/2022 2:01 PM CDT EPIC results best viewed via link to PDF [facility] [place] [address] Note to Patients: This report may contain [...] Gender: ??F : ??1960 (Age: 61) Address: ??[address] [place] [address] ??[id number] Hospital #: ??[id number] Service: ??CHIEF OF HARBOR PATROL Location: ?? Patient Type: ??[facility] SPECIMEN Taken: ??01/16/2022 Received: ??01/16/2022 Accessioned: ??01/18/2022 [...] 68. ??This HPV test was performed at [facility] in [place], [place] utilizing the Gen-Probe Aptima assay. [facility]/01/23/2022 14:01 ANDREI Cline(ASCP), CFIAC Report Electronically Reviewed and Signed Out By ANDREI Cline(ASCP), [facility] 01/23/2022 14:01:45 Cervicovaginal Cytology (Pap Test) Disclaimer: [...] screening. The HPV test was performed by [facility], [address] [place] [address]. Report Images and scanned documents, if included only viewable in PDF version The performance characteristics of some immunohistochemical stains, in-situ hybridization and fluorescence in-situ hybridization tests and immunophenotyping by flow cytometry cited in this report (if any) were determined by the Surgical Pathology Department at [facility] as part of an ongoing quality supervisor program and in compliance with federally mandated [...] determined by the Surgical Pathology Department of [facility]. ??It has not been cleared or approved by the U. S. Food and Drug Administration. Sheri Johnson NP LAB CYTOLOGY ORDERABLES Final Result PATHOLOGY [facility] 3rd Floor [place], [place] [phone] from Last 3 Months or Most Recently Relevant to [place] [address] [facility] CHOICE PLUS [facility] HMO/PPO Address: [facility] [address] [place] [address] [place] [address] [facility] CHOICE PLUS [facility] HMO/PPO Address: [address] [address] [place] [address] [place] [address] [employer] ACCESS [facility] [place] [address] [employer] ACCESS CHOICE Care Teams Health Therapist Relationship Specialty Start Date End Date Scott Jimenez DO PCP - General 04/29/18 Gill Asif MD [address] [facility] [address], [place] [address] Consulting Physician Interventional Cardiology 01/29/23
--- OUTSIDE RECORDS SUMMARY | 2024-05-15 12:38 | XMS_ITS | Encounter Summary ---
Author Organization [facility] Address [address] [place] [address] Phone Care Team Providers Care Manifest/Order Organizer Print Orders Name Role Phone Scott Jimenez DO Primary Care Provider [phone] Gill Asif MD Unavailable [phone] Reason for Visit * Reason Comments Consult * Consultation (Routine) - Closed Specialty Diagnoses / Procedures Referred By Pablo aguillon Referred To Contact Surgical Oncology Diagnoses History of invasive breast cancer Scott Jimenez DO [address] [place] [address] DR CHAN [address] [place] [address], [place] [address] Phone: tel: fax: [facility] (All Locations) Referral ID Status Reason Start Date Expiration Date V isits Requested Visits Authorized [id number] Closed Specialty Services Required 04/28/2024 05/28/2025 1 1 Encounter Details Date Type Department Care Team (Late st Contact Info) Description 05/14/2024 2:00 PM SUPERVISOR LIME Office Visit [facility] Surgery [address] [facility] [address] [place] [address] Aft, Edelmira Keith MD PhD [address] [place] [address] History of invasive breast cancer Social History Tobacco Use Types Packs/Day Years Used Date Smoking Tobacco: Never Tobacco Cessation:Counseling Given: Not Answered Comments No Sex and Gender Information Value Date Recorded Sex Assigned at Not on file Legal Sex Female 10:39 AM SUPERVISOR LIME Gender Identity Female 04/20/2024 4:40 PM SUPERVISOR LIME Sexual Orientation Straight 04/20/2024 4: 40 PM SUPERVISOR LIME documented as of this encounter Last Filed Vital Signs Vital Sign Reading Time Taken Comments Blood Pressure - - Pulse - - Temperature - - Respiratory Rate - - Oxygen Saturation - - Inhaled Oxygen Concentration - - Weight 103.2 kg (227 lb 9.6 oz) 05/14/2024 2:00 PM SUPERVISOR LIME Height 162.6 cm (5' 4 ) 05/14/2024 2:00 PM SUPERVISOR LIME Body Mass Index 39.07 05/14/2024 2:00 PM SUPERVISOR LIME documented in this encounter Progress Notes * Aft, Edelmira Keith MD PhD - 05/14/2024 2:00 PM CST PATIENT NAME: Catherine Alexis DATE OF : 1960 DATE OF OFFICE VISIT: 05/14/2024 REFERRING MD: Scott Jimenez DO A consultation was requested by Scott Jimenez DO for right a breast cancer. CHIEF COMPLAINT: Catherine Alexis is a 63 y.o. female with chief complaint of right breast cancer. HISTORY OF PRESENT ILLNESS: Ms. Alexis is a 63 y.o. woman referred by Scott Jimenez DO presents for evaluation of her new diagnosis of right breast cancer. The patient states that she was undergoing her routine mammogram a month ago And was found to have an abnormality in the right breast. She underwent additional imaging and ultimately a core biopsy, which confirmed an invasive breast cancer.She presents today to discuss further management. The patient states that she has not noticed any abnormal masses in either breast. She denies any change in the appearance of her breasts or the skin of her breasts. She denies bilateral nipple discharge. She has no other systemic complaints and otherwise feels well today. PAST MEDICAL HISTORY: She has a past medical history of Hypothyroidism, Overweight, and Personal history of other endocrine, nutritional and metabolic disease. PAST SURGICAL HISTORY: She has a past surgical history that includes pr appendectomy; pr lig/trnsxj flp tube abdl/vag appruni/bi; Tubal ligation; and Breast biopsy (Right, 04/25/2024). MEDICATIONS: She has a current medication list which includes the following prescription(s): levothyroxine, pantoprazole dr, and rosuvastatin. ALLERGIES: She has no known allergies. FAMILY HISTORY: Her family history includes Diabetes type II in her mother; Heart disease in her mother; Hypertension in her mother. SOCIAL HISTORY: She reports that she has never smoked. She does not have any smokeless tobacco history on file. Shereports that she does not use drugs. No alcohol history on file. ROS: Pertinent items are noted in HPI., I have personally reviewed the patient health history form which is scanned into her chart. PHYSICAL EXAMINATION: Vitals Ht 162.6 cm (5' 4 ) Wt 103.2 kg (227 lb 9.6 oz) BMI 39.07 kg/m?? Physical Exam Constitutional: Appearance: Normal appearance. HENT: Head: Normocephalic. Nose: Nose normal. Mouth/Throat: Mouth: Mucous membranes are moist. Eyes: Extraocular Movements: Extraocular movements intact. Pupils: Pupils are equal, round, and reactive to light. Neck: Comments: No Lymphadenopathies Cardiovascular: Rate and Rhythm: Normal rate. Pulmonary: Effort: Pulmonary effort is normal. Abdominal: Palpations: Abdomen is soft. Musculoskeletal: Cervical back: Neck supple. Skin: General: Skin is warm. Capillary Refill: Capillary refill takes less than 2 seconds. Neurological: General: No focal deficit present. Mental Status: She is alert. Psychiatric: Mood and Affect: Mood normal. GENERAL: She is a well-developed, well-nourished woman in no acute distress. HEENT: Within normal limits. EXTREMITIES: Warm without edema. NEUROLOGICAL: She is alert and oriented x 3. BREAST EXAMINATION: Bilateral breast examination reveals normal ptotic breasts bilaterally. Both breasts are without any dominant masses, skin changes, nipple discharge, or axillary adenopathy. IMAGING: I personally ordered and reviewed all of the imaging today. FINDINGS: There is a 1.0 cm irregular [...] evidence of malignancy in the left breast. PATHOLOGY: I reviewed the pathology. Breast, right, 9:00, 7 cm from nipple, ultrasound-guided biopsy - Invasive mammary carcinoma with lobular features - Histologic grade = 1/3 (tub2 + nuc2 + mit1 = 5/9) by ESBR criteria - Tumor size = at least 4 mm in core biopsy material - Biomarkers pending B. Breast, right, 9:30, 3 cm from nipple, ultrasound-guided biopsy - Breast with apocrine metaplasia and columnar cell hyperplasia - No evidence of atypia or malignancy C. Lymph node, right axillary, biopsy - Lymph node with no evidence of malignancy ESTROGEN RECEPTOR: Positive Chiara Score: Proportion 5/5 Intensity 3/3 Total Score 8/8 PROGESTERONE RECEPTOR: Positive Chiara Score: Proportion 5/5 Intensity 3/3 Total Score 8/8 HER-2: Negative (score 0 by IHC) IMPRESSION: Stage I invasive lobular breast cancer E+ P- Her2- RECOMMENDATION: Ms. Alexis is a 63 y.o. woman who presents today for a consultation regarding her new diagnosis of right breast cancer. I reviewed the clinical, imaging, and pathology findings with her today. We discussed the treatment of breast cancer, which includes a combination of surgical therapy, systemic therapy, and radiation. We discussed her surgical therapy in great detail, and I explained the differencebetween breast conservation and mastectomy. Based on the clinical and imaging findings, I would consider her an acceptable candidate for attempted breast conservation and sentinel lymph node biopsy. I explained the risks, benefits, and alternatives of this procedure, which include but are not limited to: bleeding, infection, and anesthetic risk. She understands and wishes to proceed. We will schedule her for surgery. She knows to call with questions. Bentley Villalba MD I have seen and examined Catherine Alexis with the Resident physician. We worked together to complete the office note, and I personally reviewed and edited the note. I agree with the evaluation and management plan outlined above. Edelmira Pierce MD, PhD RVISOR LIME RVISOR LIME documented in this encounter Plan of Treatment Not on file documented as of this encounter Visit Diagnoses Diagnosis History of invasive breast cancer documented in this encounter Orders Outpatient Referral Count Last Ordered Date Fir st Ordered Date AMB REFERRAL TO SURGICAL ONCOLOGY 1 025 documented in this encounter Care Teams Manifest/Order Organizer Print Orders Relationship Specialty Start Date End Date Scott Jimenez DO PCP - General 04/29/18 Gill Asif MD [address] [facility] [address] [place] [address] Consulting Physician Interventional Cardiology 01/29/23 documented as of this encounter
== END 2024-05-15 12:32 | disposition home or self-care (01) ==
PROVIDERS: Emergency Provider Nurse Practitioner Family; PCP Internal Medicine
DX: U07.1 COVID-19 (principal); C50.919 Malignant neoplasm of unspecified site of unspecified female breast; E03.9 Hypothyroidism, unspecified; E55.9 Vitamin D deficiency, unspecified
CPT/HCPCS: 87426; 87804; 99213; G0463

== ENCOUNTER 2024-11-21 08:24 | Outpatient (CLI) | payer BC, SELFPAY ==
--- OUTSIDE RECORDS SUMMARY | 2024-11-21 08:27 | XMS_ITS ---
Author Organization [facility] Address [address] [place] [address] Care Team Providers Care Home Improvement Advisor Name Role Phone Scott Jimenez DO Primary Care Provider [phone] Gill Asif MD Unavailable [phone] Maverick Gage MD PhD Unavailable Kindra Mac MD Unavailable Aft, Edelmira Keith MD PhD Unavailable [phone] Active Problems Problem Noted Date Diagnosed Date Malignant neoplasm of overla pping sites of right breast in female, estrogen receptor positive 07/23/2024 Cancer Staging:Pathologic stage from 07/23/2024:Stage IA(pT1b, pN0(sn), cM0, G1, ER+, GA+, HER2-, Oncotype DX score: 8) - Signed by Maverick Gage MD PhD on 07/23/2024 Invasive carcinoma of breast 05/24/2024 History of invasive breast cancer 05/14/2024 Other fatigue 02/27/2023 Chest tightness 02/27/2023 Shortness of breath on exertion 02/27/2023 Urge incontinence of urine 07/01/2014 Pain in female pelvis 10/07/2013 Current Treatment and Therapy Plans No current plan information found. Past Treatment and Therapy Plans No past plan information found. Current Radiation Episodes * Radiation Oncology - Radiation Therapy - June 2024Overview* First Treatment Date Latest Treatment Date Treatment Site Technique Goal Episode Provider 08/14/2024 08/20/2024 Kindra Mac MD Treatment Courses* Course [id number]_202408/14/2024 - 08/20/2024 Treatment Period Fraction Dose Fractions Total Dose Plans Planned RIGHT APBI 08/14/2024 - 08/20/2024 600 5 / 3 ,000 Reference Points Delivered [id number] 08/14/2024 - 08/20/2024 3,000
--- OUTSIDE RECORDS SUMMARY | 2024-11-21 08:28 | XMS_ITS | Patient Health Record ---
Author Organization [facility] Address [address] [place], [place] [id number] Care Team Providers Care Tractor Trailer Driver Name Role Phone CHRISTIE FRAZIER Unavailable [phone] Scott Jimenez Unavailable Unavailable Reason For Referral No Information Medications Medication SIG (Take, Route, Frequency, Duration) Notes Start Date End Date Status betamethasone 0.5 MG/ML / clotrimazole 10 MG/ML Topical Cream CUTANEOUS betamethasone 0.5 MG/ML / clotrimazole 10 MG/ML Topical CreamOriginal Medicationbetamethasone 0.5 MG/ML / clotrimazole 10 MG/ML Topical Cream *Reorder from [employer] for eRx and Interaction Alerts* 7 Active Plan Of Treatment No Information Insurance Providers Payer Name Payer Address Payer Phone Subscriber Number Group Number Insured Name Patient Relationship to Insured Coverage Start Date Coverage End Date [facility] [address] [place] [phone] [id number] STEPHENIE SINGLETON Self - patient is the insured
--- OUTSIDE RECORDS SUMMARY | 2024-11-21 08:28 | XMS_ITS | Clinical Summary ---
Author Organization [facility] Care Team Providers Care Wire Weaver Name Role Phone Unavailable Primary Care Provider Unavailabl e Social History Tobacco Use Types Packs/Day Years Used Date Smoking Tobacco: Never Assessed Comments Unknown Sex and Gender Information Value Date Recorded Sex Assigned at Not on file Legal Sex Female 7:57 AM RN [facility] Gender Identity Not on file Sexual Orientation Not on file Plan of Treatment Health Maintenance Due Date Last Done Comments Hepatitis C Virus (HCV) Screening 1960 TdaP Immunization 1960 Pap Smear 1981 Cervical Cancer Screening (CCS) 1990 HPV/Cotest 1990 Cologuard 2005 Colonoscopy 2005 Colorectal Cancer Screening 2005 Immunochemical Fecal Occult Blood 2005 Pneumococcal Immunization (5 0+ years) (1 of 1 - PCV) 2010 Zoster Immunization (1 of 2) 2010 SARS-COV-2 Immunization (1 - season) 2023 Influenza Immunization (#1) 2024 Respiratory Syncytial Virus (RSV) Immunization (Adult) (1 - 1-dose 75+ series) 11/01/2035 Hepatitis B Immunization Aged Out No longer eligible based on patient's age to complete this topic Human Papillomavirus (HPV) Immunization Aged Out No longer eligible b ased on patient's age to complete this topic Meningococcal Immunization (ACWY) Aged Out No longer eligible based on patient's age to complete this topic Rotavirus Immunization Aged Out No lo nger eligible based on patient's age to complete this topic
--- OUTSIDE RECORDS SUMMARY | 2024-11-21 08:28 | XMS_ITS | Clinical Summary ---
Author Organization [facility] Address [address] [place] [address] Care Team Providers Care Neurology Physician Name Role Phone Scott Jimenez DO Primary Care Provider [phone] Gill Asif MD Unavailable Maverick Gage MD PhD Unavailable Kindra Mac MD Unavailable Aft, Edelmira Keith MD PhD Unavailable [phone] Allergies No known active allergies Medications pantoprazole DR (PROTONIX) 40 mg EC tabletIndicatio ns:Treatment of Non-Bleeding Gastric Disorder Take 1 tablet (40 mg total) by mouth every morning 3 Active rosuvastatin (CRESTOR) 10 mg tablet TAKE 1 TABLET(10 MG) BY MOUTH DAILY 90 tablet 3 4 Active cholecalciferol , vitamin D3, (VITAMIN D3 ORAL)Indication s:supplement Take 1,200 Units by mouth every morning Active acetaminophen (TYLENOL) 500 mg tablet Take 2 tablets (1,000 mg total) by mouth every 6 (six) hours 30 tablet 5 Active Additional Information Patient not taking.Reported on 10/09/2024 anastrozole (ARIMIDEX) 1 mg tablet Take 1 tablet (1 mg total) by mouth daily 30 tablet 5 5 02/25/20 25 Active levothyroxine (SYNTHROID) 100 mcg tablet Take 1 tablet (100 mcg total) by mouth daily 5 Active Active Problems Problem Noted Date Diagnosed Date Malignant neoplasm of overla pping sites of right breast in female, estrogen receptor positive 07/23/2024 Cancer Staging:Pathologic stage from 07/23/2024:Stage IA(pT1b, pN0(sn), cM0, G1, ER+, AL+, HER2-, Oncotype DX score: 8) - Signed by Maverick Gage MD PhD on 07/23/2024 Invasive carcinoma of breast 05/24/2024 History of invasive breast cancer 05/14/2024 Other fatigue 02/27/2023 Chest tightness 02/27/2023 Shortness of breath on exertion 02/27/2023 Urge incontinence of urine 07/01/2014 Pain in female pelvis 10/07/2013 Encounters Date Type Department Care Team Description 10/28/2024 Orders Only [facility] Oncology [address] [place] [address] [address] [place] [address] Scott Jimenez, 10/24/2024 12:00 PM CDT Office Visit [facility] Oncology [address] [place] [address] [address] [place] [address] Maverick Gage MD PhD Malignant neoplasm of overlapping sites of right breast in female, estrogen receptor positive (HCC) (Primary Dx) 10/24/2024 11:45 AM CDT Lab [facility] Medical Office Building [address] [place] [address] Malignant neoplasm of overlapping sites of right breast in female, estrogen receptor positive (HCC) 10/09/2024 1:20 PM CDT Office Visit [facility] Obstetrics and Gynecology [facility] Out[facility] 7th Floor [address] [place] [address] Kanika Sidhu Rai, NP Encounter for well woman exam with routine gynecological exam (Primary Dx) 10/06/2024 9:40 AM CDT - 10/06/2024 11:59 PM CDT Hospital Encounter [facility] Medical Office Bldg 1 Breast [facility] [address] [place] [address] [address] [place] [address] Malignant neoplasm of overlapping sites of right breast in female, estrogen receptor positive (HCC); Osteoporosis screening Discharge Disposition: Discharge to home or self care 09/30/2024 9:15 AM CDT Office Visit [facility] Radiation Oncology [address] [facility] [place] [place] [address] Ethel Masterson NP Malignant neoplasm of overlapping sites of right breast in female, estrogen receptor positive (HCC) [C50.811, Z17.0] (Primary Dx) 08/29/2024 10:00 AM CDT Office Visit [facility] Cardiology [address] [facility] 8th [place] [address] [place] [address] Shortness of breath on exertion (Primary Dx) 08/28/2024 2:00 PM CDT Telemedicine [facility] Oncology [address] [facility] [address] [place] [address] Maverick Gage MD PhD Malignant neoplasm of overlapping sites of right breast in female, estrogen receptor positive (HCC) (Primary Dx) from Last 3 Months Immunizations Immunization Administration Dates Next Due Influenza, Quadrivalent, Michelle l Culture-based MDCK, Preservative Free, Antibiotic Free, Intramuscular 03/06/2023 Surgical History Surgery Date Site/Laterality Comments APPENDECTOMY 04/16/1966 - 04/15/1967 Appendectomy TUBAL LIGATION 08/29/1990 laproscopic BREAST BIOPSY 04/25/2024 Right +Breast CA VAGINAL DELIVERY 08/29/1990 ELBOW SURGERY 04/16/2017 - 04/15/2018 Right radial head replacement COLONOSCOPY 09/14/2022 - 10/13/2022 ESOPHAGOGASTRODUODENOSCOPY 09/14/2022 - 10/13/2022 Medical History Medical History Date Comments Hypothyroidism Obesity Breast cancer (HCC) Right Breast CA dxd 04/25/2024 Family History Medical History Relation Name Comments Diabetes type II Mother Family hist ory of type 2 diabetes mellitus - (Added by TW Conv) Heart disease Mother Family history of cardiac disorder - (Added by TW Conv) Hypertension Mother Family history of hypertension - (Added by TW Conv) Anesthesia problems Neg Hx Relation Name Status Comments Father Mother Social History Tobacco Use Types Packs/Day Years Used Date Smoking Tobacco: Never Smokeless Tobacco: Never Tobacco Cessation:Counseling Given: Not Answered AUDIT-C Answer Date Recorded Q1: How often do you have a drink containing alc ohol? Monthly or less 10/24/2024 Q2: How many drinks containi ng alcohol do you have on a typical day when you are drinking? 1 or 2 10/24/2024 Q3: How often do you have si x or more drinks on one occasion? Less than monthly 10/24/2024 Personal Safety Answer Date Recorded Have you ever been in or are you currently in a harmful physical or emotional relationship or is someone making you feel afraid or unsafe? 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 Gender Identity Female 04/20/2024 4:40 PM MACHINE TOOL ELECTRICIAN Sexual Orientation Straight 04/20/2024 4: 40 PM MACHINE TOOL ELECTRICIAN Obstetrics History Para Term AB IAB SAB Ectopic Multiple Livin g Live Births 3 3 3 3 3 Date Outcome GA Total Labor Labor//3rd Weight Sex Type Anes PTL Kay A1 A5 Name Clin 1980 Term 2.977 kg (6 lb 9 oz) M Vag-S pont Living Complications:None 1982 Term 2.892 kg (6 lb 6 oz) M Vag-S pont Living Complications:None 1990 Term 3.657 kg (8 lb 1 oz) M Vag-S pont Living Complications:None Last Filed Vital Signs Vital Sign Reading Time Taken Comments Blood Pressure 138/82 10/24/2024 12:26 PM CDT Pulse 73 10/24/2024 12:26 PM CDT Temperature 36.8 C (98.2 F) 10/24/2024 12:26 PM CDT Respiratory Rate 18 10/24/2024 12:26 PM CDT Oxygen Saturation 98% 10/24/2024 12:26 PM CDT Inhaled Oxygen Concentration - - Weight 98.5 kg (217 lb 2.5 oz) 10/24/2024 12:26 PM CDT Height 162.6 cm (5' 4) 10/09/2024 1:27 PM CDT Body Mass Index 37.27 10/09/2024 1:27 PM CDT Plan of Treatment Health Maintenance Due Date Last Done Comments Breast Cancer Screening-Mammogram 1960 Depression Screening 1960 Hepatitis C Screening 1960 DTaP/Tdap/Td Vaccine (1 - Tdap) 11/01/1971 Hepatitis B Screening 1978 Pneumococcal vaccine <65 (1 of 2 - PCV) 11/01/1979 Zoster Vaccine (1 of 2) 11/01/1979 Covid-19 Vaccine (3 - Pfizer risk series) 08/29/2020 08/01/2020, 07/11/2020 Cervical Cancer Screening 01/16/2023 01/16/2022 Influenza Vaccine (#1) 2024 03/06/2023 Regular Well Visit/Exam 18-64 10/09/2025 10/09/2024, 01/16/2022 Colon Cancer Screening-Colonoscopy 10/28/20342024 Colon Cancer Screening-CT Colonography Discontinued Colon Cancer Screening-DNA Stool Discontinued 10/29/19 Colon Cancer Screening-FIT Discontinued 10/28/2024 Colon Cancer Screening-Sigmoidoscopy Discontinued 10/14 Medical Devices Implanted Type Area Recreation Instructor Device Identifier Shelf Expiration Date Model / Serial / Lot Bard Peripheral Vascular Ultraclip Bard 17ga 10cm 2 Trigger Permanent Ultrasound [id number] - [id number] Implanted:Qty: 1 on 04/25/2024 at [facility] Right: Breast Bard Peripheral Vascular [id number] / / Liquid Air [employer] Marker Image Hydromark Plus T5 Titanium 15ga Radiological Implant Sterile 0437-09-19-T5 - [id number] Implanted:Qty: 1 on 04/25/2024 at [facility] Right: Breast Liquid Air [employer] [id number] 04/03/20254009-05-1 5-T5 / / [id number] D Bard Peripheral Vascular Marker Breast Ring Shape Radiopaque Nitinol Ultracor Twirl [id number] Uctw17 - [id number] Implanted:Qty: 1 on 04/25/2024 at [facility] Right: Axilla Bard Peripheral Vascular [id number] / / Bard Peripheral Vascular Ghiatas 20ga 20cm 7cm Beaded Needle Breast Wire Localization [id number] - [id number] Implanted:Qty: 1 on 06/12/2024 by Jazmin Hanley MD at [facility] Right: Breast Bard Peripheral Vascular [id number] / / Procedures Procedure Name Priority Date/Time Associated Diagnosis Comments COLONOSCOPY Routine 10/28/2024 9:55 AM CDT EGD Routine 10/28/2024 9:51 AM CDT EGFR Routine 10/24/2024 11:34 AM CDT Malignant neoplasm of overlapping sites of right breast in female, estrogen receptor positive (HCC) DIFFERENTIAL AUTO Routine 10/24/2024 11: 34 AM CDT Malignant neoplasm of overlapping sites of right breast in female, estrogen receptor positive (HCC) COMPREHENSIVE METABOLIC PANEL Routine 10/24/2024 11:34 AM CDT Malignant neoplasm of overlapping sites of right breast in female, estrogen receptor positive (HCC) CBC WITH AUTO DIFFERENTIAL Routine 10/24/2024 11:34 AM CDT Malignant neoplasm of overlapping sites of right breast in female, estrogen receptor positive (HCC) DEXA AXIAL SKELETON BONE DENSITY 1 OR MORE SITES Schedule Routine, Read Routine (OP Routine) 10/06/2024 10:02 AM CDT Malignant neoplasm of overlapping sites of right breast in female, estrogen receptor positive (HCC) Osteoporosis screening PAP AND HIGH RISK HPV, REFLEX TO GENOTYPING Routine 01/16/2022 11:41 AM CDT Screening for cervical cancer from Last 3 Months or Most Recently Relevant to Health Maintenance Results * Colonoscopy (10/28/2024 9:55 AM CDT) Anatomical Region Laterality Modality Other us Scott Jimenez DO ENDOSCOPY PROCEDURES Final Result * EGD -[facility] (All Locations) (10/28/2024 9:51 AM CDT) Anatomical Region Laterality Modality Other us Scott Jimenez DO GI PROCEDURE ORDERABLES Fi nal Result * eGFR (10/24/2024 11:34 AM CDT) eGFR 83 >=60 mL/min/1. 73 m2 Comment: Interpretive Data Reference Interval Normal >/= 90 mL/min/1.73m2 Mildly decreased* 60 - 89 mL/min/1.73m2 Mildly to moderately decreased 45 - 59 mL/min/1.73m2 Moderately to severely decreased 30 - 44 mL/min/1.73m2 Severely decreased 15 - 29 mL/min/1.73m2 Kidney Failure < 15 mL/min/1.73m2 *Relative to young adult level Estimated glomerular filtration rate is determined by the 2020 CKD-EPI equation recommended by the National Kidney Foundation (A Unifying Approach to GFR Estimation: Recommendations of the NKF-ASK Task Force on Reassessing the Inclusion of Race in Diagnosing Kidney Disease, JASN 2020). The CKD-EPI equation should not be used for patients with unstable renal function and has not been validated in children and those over 70. Current interpretive data was last reviewed 2021. Testing performed by: [address] [address] Blood 10/24/2024 11:3 4 AM CDT 10/24/2024 12:20 PM CDT us Maverick Gage MD PhD LAB BLOOD ORDERABLES Final Resul t [facility] [address] [facility] Department [place] [address] * Differential, auto (10/24/2024 11:34 AM CDT) Neutrophil abs 2.70 1.50 - 6.50 K/cumm Comment:Testing performed by : [address] [address] Imm gran abs 0.02 0.00 - 0.10 K/cumm [facility] Comment:Testing performed by : [address] [address] Lymphocyte abs 2.44 0.80 - 3.30 K/cumm [facility] Comment:Testing performed by : [address] [address] Monocyte abs 0.48 0.20 - 0.80 K/cumm [facility] Comment:Testing performed by : [address] [address] Eosinophil abs 0.14 0.00 - 0.50 K/cumm [facility] Comment:Testing performed by : [address] [address] Basophil abs 0.04 0.00 - 0.10 K/cumm [facility] Comment:Testing performed by : [address] [address] Neutrophil pct 46.5 % [facility] Comment: Interpretive Data Percent cell count reference ranges are not reported, since discordance with absolute values may lead to misinterpretation of CBC data. Current Interpretive Data was last revised on 2017. Testing performed by: [address] [address] Imm gran pct 0.3 % [facility] Comment: Interpretive Data Percent cell count reference ranges are not reported, since discordance with absolute values may lead to misinterpretation of CBC data. Current Interpretive Data was last revised on 2017. Testing performed by: [address] [address] Lymphocyte pct 41.9 % [facility] Comment: Interpretive Data Percent cell count reference ranges are not reported, since discordance with absolute values may lead to misinterpretation of CBC data. Current Interpretive Data was last revised on 2017. Testing performed by: [address] [address] Monocyte pct 8.2 % [facility] Comment: Interpretive Data Percent cell count reference ranges are not reported, since discordance with absolute values may lead to misinterpretation of CBC data. Current Interpretive Data was last revised on 2017. Testing performed by: [address] [address] Eosinophil pct 2.4 % [facility] Comment: Interpretive Data Percent cell count reference ranges are not reported, since discordance with absolute values may lead to misinterpretation of CBC data. Current Interpretive Data was last revised on 2017. Testing performed by: [address] [address] Basophil pct 0.7 % [facility] Comment: Interpretive Data Percent cell count reference ranges are not reported, since discordance with absolute values may lead to misinterpretation of CBC data. Current Interpretive Data was last revised on 2017. Testing performed by: [address] [address] Blood 10/24/2024 11:3 4 AM CDT 10/24/2024 12:19 PM CDT us Maverick Gage MD PhD LAB BLOOD ORDERABLES Final Resul t [facility] [address] [facility] Department [place] [address] * (ABNORMAL) CBC with auto differential (10/24/2024 11:34 AM CDT) WBC 5.82 3.80 - 9.90 K/cumm Comment:Testing performed by : [address] [address] Hgb 12.6 11.9 - 15.5 g/dL [facility] Comment:Testing performed by : [address] [address] Hct 38.8 35.6 - 45.5 % [facility] Comment:Testing performed by : [address] [address] Plt 197 150 - 400 K/cumm [facility] Comment:Testing performed by : [address] [address] MPV 11.9 9.1 - 12.3 fL [facility] Comment:Testing performed by : [address] [address] RBC 4.86 3.90 - 5.20 M/cumm [facility] Comment:Testing performed by : [address] [address] MCV 79.8(L) 81.3 - 96.4 fL [facility] Comment:Testing performed by : [address] [address] MCH 25.9(L) 27.1 - 33.3 pg [facility] GREEN Comment:Testing performed by : [address] [address] MCHC 32.5 32.3 - 35.7 g/dL [facility] GREEN Comment:Testing performed by : [address] [address] RDW CV 13.5 11.1 - 14.9 % [facility] Comment:Testing performed by : [address] [address] RDW SD 38.8 35.7 - 48.1 fL [facility] GRE[facility] Comment:Testing performed by : [address] [address] NRBC abs 0.00 0.00 - 0.01 K/cumm [facility] Comment:Testing performed by : [address] [address] ANC Prelim 2.70 1.50 - 6.50 K/cumm [facility] Comment: Interpretive Data The rapid ANC is a preliminary automated count and may vary from the final ANC (Neut Abs) reported in the WBC differential that follows. Current interpretive data was last revised 2024. Testing performed by: [address] [address] Blood 10/24/2024 11:3 4 AM CDT 10/24/2024 12:19 PM CDT us Maverick Gage MD PhD LAB BLOOD ORDERABLES Final Resul t [facility] [address] [facility] Department of Laboratories [place], [place] [id number] * Comprehensive metabolic panel (10/24/2024 11:34 AM CDT) Sodium 142 135 - 145 mmol/L Comment:Testing performed by : [address] [address] Potassium, pl 4.0 3.3 - 4.9 mmol/L [facility] GREEN Comment:Testing performed by : [address] [address] Chloride 103 97 - 110 mmol/L [facility] Comment:Testing performed by : [address], [place]., [address] CO2 27 22 - 32 mmol/L [facility] Comment:Testing performed by : [address] [address] Anion gap 12 2 - 15 mmol/L [facility] Comment:Testing performed by : [address], [place]., [address] BUN 9 6 - 25 mg/dL [facility] Comment:Testing performed by : [address], [place]., [address] Creatinine 0.80 0.60 - 1.10 mg/dL [facility] Comment:Testing performed by : [address], [place]., [address] Glucose 90 70 - 199 mg/dL [facility] Comment: Interpretive Data Fasting glucose >/= 126 mg/dl is diagnostic for diabetes. Fasting is defined as no caloric intake for at least 8 hours. Fasting glucose between 100 mg/dl to 125 mg/dl is diagnostic of prediabetes. In a patient with classic symptoms of hyperglycemia or hyperglycemic crisis, a random glucose >/= 200 mg/dl is diagnostic for diabetes. In the absence of unequivocal hyperglycemia, results should be confirmed by repeat testing. The classification and Diagnosis of Diabetes Diabetes Care 202; 46: S19-S40. Current interpretive data was last revised 2022. Testing performed by: [address] [address] Calcium 9.7 8.5 - 10.3 mg/dL [facility] Comment:Testing performed by : [address] [address] Bilirubin, total 0.3 0.1 - 1.2 mg/dL [facility] Comment:Testing performed by : [address] [address] Protein, pl 7.3 6.5 - 8.5 g/dL [facility] Comment:Testing performed by : [address] [address] Albumin 4.5 3.5 - 5.0 g/dL [facility] Comment:Testing performed by : [address] [address] Alk phos 48 40 - 130 Units/L [facility] GREEN Comment:Testing performed by : [address] [address] ALT 28 7 - 45 Units/L [facility] GREEN Comment:Testing performed by : [facility], [address] [place] [address]., [address] AST 26 10 - 45 Units/L [facility] Comment:Testing performed by : [address] [address] Blood 10/24/2024 11:3 4 AM CDT 10/24/2024 12:20 PM CDT us Maverick Gage MD PhD LAB BLOOD ORDERABLES Final Resul t [facility] [address] [facility] Department [place] [address] * Dexa Axial Skeleton Bone Density 1 or 2 Site (10/06/2024 10:02 AM CDT) Anatomical Region Laterality Modality Body N/A Mammography 10/06/2024 10:4 7 PM CDT Narrative 10/06/2024 10:51 PM CDT EXAM DESCRIPTION: DEXA AXIAL SKELETON BONE DENSITY 1 OR MORE SITES REASON FOR STUDY: 63 y/o year old F with given history of: 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 CLINICAL INFORMATION: Current height: 64 inches Maximum height: 66 inches Weight: 215 pounds Risk factors: Postmenopausal, cancer COMPARISON: None available FINDINGS: AP LUMBAR SPINE L1-L4: Total BMD is 0.849 g/cm2 T-score is -1.8 LEFT HIP: Total BMD is 0.950 g/cm2 T-score is 0.1 Femoral neck BMD is 0.757 g/cm2 T-score is -0.8 FRAX: 10 year risk for a major osteoporotic fracture is 6.9 %, 10 year risk for a hip fracture is 0.4 % Per National Osteoporosis Foundation guidelines, this patient does not meet the criteria for pharmacological treatment of patients with FRAX 10 year major osteoporotic fracture risk scores of = or greater than 20% or a 10 year probability of a hip fracture = or greater than 3%, to reduce fracture risk. Additional factors such as frequent falls are not represented in FRAX and warrant individual clinical judgment. IMPRESSION: 1. Low Bone Mass. REFERENCE: Bone mineral density: T-Score: Normal (T-score above or = -1.0) Low bone mass (T-score between -1.0 and -2.5) replaces the previously used term osteopenia Osteoporosis (T-score = or below -2.5) Z-Score: Within the expected range for age (Z-score above -2.0) Below the expected range for age (Z-score is -2.0 or below) Please see below follow up recommendations. Medical evaluation for secondary causes of low bone mineral density may be appropriate. FRAX is a World Health Organization validated fracture risk assessment tool that calculates a person's 10 year probability of a major osteoporosis related fracture and hip fracture. According to the National Osteoporosis Foundation guidelines, postmenopausal women and men age 50 or older with low bone mass and a 10 year probability of a major osteoporosis related fracture = or greater than 20% or a 10 year probability of a hip fracture = or greater than 3% should be considered for pharmacological treatment for the prevention of osteoporosis. For further information, including treatment recommendations, please refer to the 2019 ISCD Official Positions (http://www.iscd.org) and the NOF's Clinician's Guide to Prevention and Treatment of Osteoporosis (http://www.nof.org/professionals/clinical-guidelines) THIS IS AN ELECTRONICALLY VERIFIED FINAL REPORT 10/06/2024 10:51 PM - Electronically signed by Ferdinand Cantu M.D. 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 CLINICAL INFORMATION: Current height: 64 inches Maximum height: 66 inches Weight: 215 pounds Risk factors: Postmenopausal, cancer COMPARISON: None available FINDINGS: AP LUMBAR SPINE L1-L4: Total BMD is 0.849 g/cm2 T-score is -1.8 LEFT HIP: Total BMD is 0.950 g/cm2 T-score is 0.1 Femoral neck BMD is 0.757 g/cm2 T-score is -0.8 FRAX: 10 year risk for a major osteoporotic fracture is 6.9 %, 10 year risk fora hip fracture is 0.4 % Per National Osteoporosis Foundation guidelines, this patient does notmeet the criteria for pharmacological treatment of patients with FRAX 10 yearmajor osteoporotic fracture risk scores of = or greater than 20% or a 10 year probability of a hip fracture = or greater than 3%, to reduce fracturerisk. Additional factors such as frequent falls are not represented in FRAX and warrant individual clinical judgment. IMPRESSION: 1. Low Bone Mass. REFERENCE: Bone mineral density: T-Score: Normal (T-score above or = -1.0) Low bone mass (T-score between -1.0 and -2.5) replaces thepreviously used term osteopenia Osteoporosis (T-score = or below -2.5) Z-Score: Within the expected range for age (Z-score above -2.0) Below the expected range for age (Z-score is -2.0 or below) Please see below follow up recommendations. Medical evaluation forsecondary causes of low bone mineral density may be appropriate. FRAX is a World Health Organization validated fracture risk assessmenttool that calculates a person's 10 year probability of a major osteoporosisrelated fracture and hip fracture. According to the National OsteoporosisFoundation guidelines, postmenopausal women and men age 50 or older with low bonemass and a 10 year probability of a major osteoporosis related fracture = or greater than 20% or a 10 year probability of a hip fracture = or greaterthan 3% should be considered for pharmacological treatment for the preventionof osteoporosis. For further information, including treatment recommendations, please referto the 2019 ISCD Official Positions (http://www.iscd.org) and the NOF's Clinician's Guide to Prevention and Treatment of Osteoporosis (http://www.nof.org/professionals/clinical-guidelines) THIS IS AN ELECTRONICALLY VERIFIED FINAL REPORT 10/06/2024 10:51 PM - Electronically signed by Ferdinand Cantu M.D. MF: JULIO C Report ID: [id number] Reading Location: [place] [address] Maverick Gage MD PhD IMG DXA PROCEDURES Final Result * Pap and High Risk HPV, reflex to Genotyping (01/16/2022 11:41 AM CDT) Thin prep (Pap test) 01/16/2022 11:41 AM CDT 01/16/2022 1:23 PM CDT Narrative PATHOLOGY [facility] - 01/23/2022 2:01 PM CDT EPIC results best viewed via link to PDF [facility] [facility] [place], [place] [id number] Note to Patients: This report may contain [...] the details. 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 FINAL INTERPRETATION SOURCE OF SPECIMEN: Liquid based Thin Prep pap with HPV STATEMENT OF ADEQUACY: - Satisfactory for evaluation - No endocervical/transformation zone sample present in a post menopausal patient GENERAL CATEGORY: - Negative for squamous intraepithelial lesion or malignancy Comments HPV Result: NEGATIVE for high risk types of Human Papilloma Virus (HPV) RNA This probe detects the presence of HPV types: 16, 18, 31, 33, 35, 39, 45, 51, 52, 56, 58, 59, 66 and 68. This HPV test was performed at [facility] in [place], [place] utilizing the Gen-Probe Aptima assay. [facility]/01/23/2022 14:01 ANDREI Cline(ASCP), [facility] Report Electronically Reviewed and Signed Out By ANDREI Cline(ASCP), [facility] 01/23/2022 14:01:45 Cervicovaginal Cytology (Pap Test) Disclaimer: The Pap test is a screening test used to detect cervical cancer and its precursors; it is not a diagnostic procedure. False negative and false positive results do occur. Pap test results should be interpreted in the context of pertinent clinical information and biopsy results as indicated. Gross Description A. Liquid based Thin Prep pap with HPV: Cervical/vaginal - Screening ThinPrep Clinical Diagnosis and History Last Menstrual Period: PM The patient is a 61 year old woman with screening. The HPV test was performed by [facility], [address] [place] [address]. Report Images and scanned documents, if included only viewable in PDF version The performance characteristics of some immunohistochemical stains, in-situ hybridization and fluorescence in-situ hybridization tests and immunophenotyping by flow cytometry cited in this report (if any) were determined by the Surgical Pathology Department at [facility] as part of an ongoing quality specialist program and in compliance with federally mandated regulations drawn from the Clinical Laboratory Improvement Act of 1988 (CLIA '88). Some of these tests rely on the use of analyte specific reagents and are subject to specific labeling requirements by the US Food and Drug Administration. Such diagnostic tests may only be performed in a facility that is certified by the Department of Health and Human Services as a high complexity laboratory under CLIA '88. The FDA has determined that such clearance or approval is not necessary. This test is used for clinical purposes. It should not be regarded as investigational or for research. Nevertheless, federal rules concerning the medical use of analyte specific reagents require that the following disclaimer be attached to the report: This test was developed and its performance characteristics determined by the Surgical Pathology Department of [facility]. It has not been cleared or approved by the U. S. Food and Drug Administration. Sheri Johnson NP LAB CYTOLOGY ORDERABLES Final Result PATHOLOGY [facility] 3rd Floor [place], [place] [phone] from Last 3 Months or Most Recently Relevant to Health Maintenance Insurance [facility] CHOICE PLUS [facility] ACCESS CHOICE ANTHEM ACCESS CHOICE Care Teams Neurology Physician Relationship Specialty Start Date End Date Scott Jimenez DO PCP - General 04/29/18 Gill Asif MD Consulting Physician Interventional Cardiology 01/29/23 Maverick Gage MD PhD [address] [facility] MEDICAL ONCOLOGY, [facility] 7A, 7B, [address] [address] Medical Oncologist/Hematologis t Medical Oncology 06/27/24 Kindra Mac MD [address] [facility] DEPT RADIATION ONCOLOGY, [place] [address] Radiation Oncologist Radiation Oncology 07/23/24 Aft, Edelmira Keith MD PhD [address] [place] [address] Surgeon Surgical Oncology 09/30/24
[2024-11-21 13:15] LABS: Alanine Aminotransferase 28 U/L (6-35); Albumin Level 4.3 g/dL (3.5-5.1); Alkaline Phosphatase 48 U/L (38-126); Aspartate Amino Transferase 45 U/L (14-36); Bilirubin,Total 0.4 mg/dL (0.2-1.3); Total Protein 7.3 g/dL (6.3-8.2)
[2024-11-21 13:34] LABS: Free T4 Free Thyroxine 0.84 ng/dL (0.78-2.19)
[2024-11-21 13:52] LABS: Thyroid Stimulating Hormone 3.460 uIU/mL (0.465-4.680)
[2024-11-22 07:09] LABS: Triiodothyronine (T3), Free 3.4 pg/mL (2.0-4.4)
== END 2024-11-21 08:25 | disposition home or self-care (01) ==
LOC: ANHGOSHLAB 08:25
PROVIDERS: PCP Internal Medicine; Visit Provider Internal Medicine
DX: E03.9 Hypothyroidism, unspecified (principal); R74.8 Abnormal levels of other serum enzymes
CPT/HCPCS: 36415; 80076; 84439; 84443; 84481

== ENCOUNTER 2024-12-17 08:24 | Outpatient (CLI) | payer BC, SELFPAY ==
--- OUTSIDE RECORDS SUMMARY | 2024-12-17 08:42 | XMS_ITS | Patient Health Record ---
Author Organization [facility] Address [address] [place], [place] [id number] Care Team Providers Care Insurance Sales Agent Name Role Phone CHRISTIE FRAZIER Unavailable [phone] Scott Jimenez Unavailable Unavailable Reason For Referral No Information Medications Medication SIG (Take, Route, Frequency, Duration) Notes Start Date End Date Status betamethasone 0.5 MG/ML / clotrimazole 10 MG/ML Topical Cream CUTANEOUS betamethasone 0.5 MG/ML / clotrimazole 10 MG/ML Topical CreamOriginal Medicationbetamethasone 0.5 MG/ML / clotrimazole 10 MG/ML Topical Cream *Reorder from [employer] for eRx and Interaction Alerts* 7 Active Plan Of Treatment No Information Insurance Providers Payer Name Payer Address Payer Phone Subscriber Number Group Number Insured Name Patient Relationship to Insured Coverage Start Date Coverage End Date [facility] [address] [place]CELLO FITZGERALD [phone] [id number] STEPHENIE SINGLETON Self - patient is the insured
--- OUTSIDE RECORDS SUMMARY | 2024-12-17 08:42 | XMS_ITS | Clinical Summary ---
Author Organization [facility] Address [address] [place] [address] Care Team Providers Care Tank Car Loader Name Role Phone Scott Jimenez DO Primary Care Provider [phone] Gill Asif MD Unavailable [phone] Maverick Gage MD PhD Unavailable Kindra Mac MD Unavailable Aft, Edelmira Keith MD PhD Unavailable [phone] Allergies No known active allergies Medications pantoprazole DR (PROTONIX) 40 mg EC tabletIndicati ons:Treatment of Non-Bleeding Gastric Disorder Take 1 tablet (40 mg total) by mouth every morning 3 Active rosuvastatin (CRESTOR) 10 mg tablet TAKE 1 TABLET(10 MG) BY MOUTH DAILY 90 tablet 3 4 Active cholecalcifero l, vitamin D3, (VITAMIN D3 ORAL)Indicatio ns:supplement Take 1,200 Units by mouth every morning Active acetaminophen (TYLENOL) 500 mg tablet Take 2 tablets (1,000 mg total) by mouth every 6 (six) hours 30 tablet 5 Active Additional Information Patient not taking.Reported on 10/09/2024 levothyroxine (SYNTHROID) 100 mcg tablet Take 1 tablet (100 mcg total) by mouth daily 5 Active anastrozole (ARIMIDEX) 1 mg tablet Take 1 tablet (1 mg total) by mouth daily 90 tablet 1 5 05/23/19 26 Active anastrozole (ARIMIDEX) 1 mg tablet Take 1 tablet (1 mg total) by mouth daily 30 tablet 5 5 11/25/19 25 Discontin ued(Reord er) Active Problems Problem Noted Date Diagnosed Date Malignant neoplasm of overla pping sites of right breast in female, estrogen receptor positive 07/23/2024 Cancer Staging:Pathologic stage from 07/23/2024:Stage IA(pT1b, pN0(sn), cM0, G1, ER+, NC+, HER2-, Oncotype DX score: 8) - Signed by Maverick Gage MD PhD on 07/23/2024 Invasive carcinoma of breast 05/24/2024 History of invasive breast cancer 05/14/2024 Other fatigue 02/27/2023 Chest tightness 02/27/2023 Shortness of breath on exertion 02/27/2023 Urge incontinence of urine 07/01/2014 Pain in female pelvis 10/07/2013 Encounters Date Type Department Care Team Description 10/28/2024 Orders Only [facility] Medicine Physicians [facility] Oncology [address] [place] [phone] Scott Jimenez DO 10/24/2024 12:00 PM CDT Office Visit [facility] [address] [place] [phone] Maverick Gage MD PhD Malignant neoplasm of overlapping sites of right breast in female, estrogen receptor positive (HCC) (Primary Dx) 10/24/2024 11:45 AM CDT Lab [facility] Office Building [address] [place] [address] Malignant neoplasm of overlapping sites of right breast in female, estrogen receptor positive (HCC) 10/09/2024 1:20 PM CDT Office Visit [facility] Medicine Obstetrics and Gynecology [facility]1 [facility] 7th Floor [address] [place] [address] Kanika Sidhu Rai, NP Encounter for well woman exam with routine gynecological exam (Primary Dx) 10/06/2024 9:40 AM CDT - 10/06/2024 11:59 PM CDT Hospital Encounter [facility] Medical Office Bldg 1 Breast [facility] [address] [place] [address] [address] [place] [address] Malignant neoplasm of overlapping sites of right breast in female, estrogen receptor positive (HCC); Osteoporosis screening Discharge Disposition: Discharge to home or self care 09/30/2024 9:15 AM CDT Office Visit [facility] Advanced Medicine Radiation Oncology [address] [facility] [place] [address] Ethel Masterson NP Malignant neoplasm of overlapping sites of right breast in female, estrogen receptor positive (HCC) [C50.811, Z17.0] (Primary Dx) from Last 3 Months Immunizations [...] on file Legal Sex Female 10:39 AM DIRECTOR REVENUE Gender Identity Female 04/20/2024 4:40 PM DIRECTOR REVENUE Sexual Orientation Straight 04/20/2024 4: 40 PM DIRECTOR REVENUE Obstetrics History Para Term AB IAB SAB [...] Discontinued 10/14 Medical Devices Implanted Type Area Home Care Assistant Device Identifier Shelf Expiration Date Model / Serial / Lot Bard Peripheral Vascular Ultraclip Bard 17ga 10cm 2 Trigger Permanent Ultrasound [id number] - [id number] Implanted:Qty: 1 on 04/25/2024 at [facility] Right: Breast Bard Peripheral Vascular [id number] / / [employer] Marker Image Hydromark Plus T5 Titanium 15ga Radiological Implant Sterile 4009-05-31-T5 - [id number] Implanted:Qty: 1 on 04/25/2024 at [facility] Right: Breast [employer] [id number] 04/03/2025 4010-02-1 5-T5 / / [id number] D Bard Peripheral Vascular Marker Breast Ring Shape Radiopaque Nitinol Ultracor Twirl [id number] Uctw17 - [id number] Implanted:Qty: 1 on 04/25/2024 at [facility] Right: Axilla Bard Peripheral Vascular [id number] / / Bard Peripheral Vascular Ghiatas 20ga 20cm 7cm Beaded Needle Breast Wire Localization [id number] - [id number] Implanted:Qty: 1 on 06/12/2024 by Jazmin Hanley MD at [facility] Right: Breast Bard Peripheral Vascular [id number] / / Procedures Procedure Name Priority Date/Time [...] DO ENDOSCOPY PROCEDURES Final Result * EGD -[facility] (All Locations) (10/28/2024 9:51 AM CDT) Anatomical [...] was last reviewed 2021. Testing performed by: [address] [address] Blood 10/24/2024 11:3 4 AM CDT 10/24/2024 12:20 PM CDT us Maverick Gage MD PhD LAB BLOOD ORDERABLES Final Resul t [facility] [address] [facility] Department [place] [address] * Differential, auto (10/24/2024 11:34 AM CDT) Neutrophil abs 2.70 1.50 - 6.50 K/cumm Comment:Testing performed by : [address] [address] Imm gran abs 0.02 0.00 - 0.10 K/cumm GREGORIO Comment:Testing performed by : [address] [address] Lymphocyte abs 2.44 0.80 - 3.30 K/cumm GREGORIO Comment:Testing performed by : [address] [address] Monocyte abs 0.48 0.20 - 0.80 K/cumm GREGORIO Comment:Testing performed by : [address] [address] Eosinophil abs 0.14 0.00 - 0.50 K/cumm GREGORIO Comment:Testing performed by : [address] [address] Basophil abs 0.04 0.00 - 0.10 K/cumm GREGORIO Comment:Testing performed by : [facility], [address] [place] [address]., [address] Neutrophil pct 46.5 % GREGORIO Comment: Interpretive Data Percent cell count reference ranges are not reported, since discordance with absolute values may lead to misinterpretation of CBC data. Current Interpretive Data was last revised on 2017. Testing performed by: [address] [address] Imm gran pct 0.3 % GREGORIO Comment: Interpretive Data Percent cell count reference ranges are not reported, since discordance with absolute values may lead to misinterpretation of CBC data. Current Interpretive Data was last revised on 2017. Testing performed by: [address] [address] Lymphocyte pct 41.9 % GREGORIO Comment: Interpretive Data Percent cell count reference ranges are not reported, since discordance with absolute values may lead to misinterpretation of CBC data. Current Interpretive Data was last revised on 2017. Testing performed by: [address] [address] Monocyte pct 8.2 % GREGORIO Comment: Interpretive Data Percent cell count reference ranges are not reported, since discordance with absolute values may lead to misinterpretation of CBC data. Current Interpretive Data was last revised on 2017. Testing performed by: [address] [address] Eosinophil pct 2.4 % GREGORIO Comment: Interpretive Data Percent cell count reference ranges are not reported, since discordance with absolute values may lead to misinterpretation of CBC data. Current Interpretive Data was last revised on 2017. Testing performed by: [address] [address] Basophil pct 0.7 % GREGORIO Comment: Interpretive Data Percent cell count reference ranges are not reported, since discordance with absolute values may lead to misinterpretation of CBC data. Current Interpretive Data was last revised on 2017. Testing performed by: [address] [address] Blood 10/24/2024 11:3 4 AM CDT 10/24/2024 12:19 PM CDT us Maverick Gage MD PhD LAB BLOOD ORDERABLES Final Resul t GREG[place]IO [address] [facility] Department [place] [address] * (ABNORMAL) CBC with auto differential (10/24/2024 11:34 AM CDT) WBC 5.82 3.80 - 9.90 K/cumm Comment:Testing performed by : [address] [address] Hgb 12.6 11.9 - 15.5 g/dL GREGORIO Comment:Testing performed by : [address] [address] Hct 38.8 35.6 - 45.5 % GREGORIO Comment:Testing performed by : [address] [address] Plt 197 150 - 400 K/cumm GREGORIO Comment:Testing performed by : [address] [address] MPV 11.9 9.1 - 12.3 fL GREGORIO Comment:Testing performed by : [address] [address] RBC 4.86 3.90 - 5.20 M/cumm GREGORIO Comment:Testing performed by : [address] [address] MCV 79.8(L) 81.3 - 96.4 fL GREG[place]IO Comment:Testing performed by : [address] [address] MCH 25.9(L) 27.1 - 33.3 pg GREGORIO Comment:Testing performed by : [address] [address] MCHC 32.5 32.3 - 35.7 g/dL GREGORIO Comment:Testing performed by : [address] [address] RDW CV 13.5 11.1 - 14.9 % GREGORIO GREEN Comment:Testing performed by : [address] [address] RDW SD 38.8 35.7 - 48.1 fL GREG[place]IO GREEN Comment:Testing performed by : [address] [address] NRBC abs 0.00 0.00 - 0.01 K/cumm GREGORIO GREEN Comment:Testing performed by : [address] [address] ANC Prelim 2.70 1.50 - 6.50 K/cumm GREGORIO GREEN Comment: Interpretive Data The rapid ANC is a preliminary automated count and may vary from the final ANC (Neut Abs) reported in the WBC differential that follows. Current interpretive data was last revised 2024. Testing performed by: [address] [address] Blood 10/24/2024 11:3 4 AM CDT 10/24/2024 12:19 PM CDT us Maverick Gage MD PhD LAB BLOOD ORDERABLES Final Resul t [place] [address] [facility] Department [place] [address] * Comprehensive metabolic panel (10/24/2024 11:34 AM CDT) Sodium 142 135 - 145 mmol/L Comment:Testing performed by : [address] [address] Potassium, pl 4.0 3.3 - 4.9 mmol/L GREG[place]IO GREEN Comment:Testing performed by : [address] [address] Chloride 103 97 - 110 mmol/L GREG[place]IO GREEN Comment:Testing performed by : [address] [address] CO2 27 22 - 32 mmol/L GREG[place]IO GREEN Comment:Testing performed by : [address] [address] Anion gap 12 2 - 15 mmol/L GREG[place]IO GREEN Comment:Testing performed by : [address] [address] BUN 9 6 - 25 mg/dL GREG[place]IO Comment:Testing performed by : [address] [address] Creatinine 0.80 0.60 - 1.10 mg/dL GREG[place]IO Comment:Testing performed by : [address] [address] Glucose 90 70 - 199 mg/dL GREGORIO [...] classification and Diagnosis of Diabetes Diabetes Care 2021; 46: S19-S40. Current interpretive data was last revised 2022. Testing performed by: [address] [address] Calcium 9.7 8.5 - 10.3 mg/dL [facility] Comment:Testing performed by : [address] [address] Bilirubin, total 0.3 0.1 - 1.2 mg/dL [facility] Comment:Testing performed by : [address] [address] Protein, pl 7.3 6.5 - 8.5 g/dL [facility] Comment:Testing performed by : [address] [address] Albumin 4.5 3.5 - 5.0 g/dL [facility] Comment:Testing performed by : [address] [address] Alk phos 48 40 - 130 Units/L GREGORIO Comment:Testing performed by : [address] [address] ALT 28 7 - 45 Units/L GREG[place]IO Comment:Testing performed by : [address] [address] AST 26 10 - 45 Units/L G[place]IO GREEN Comment:Testing performed by : [facility], [address] [place] [address], [place]., [address] Blood 10/24/2024 11:3 4 AM CDT 10/24/2024 12:20 PM CDT us Maverick Gage MD PhD LAB BLOOD ORDERABLES Final Resul t [place] GREEN [address] [facility] Department [place] [address] * Dexa Axial Skeleton Bone Density 1 or 2 Site (10/06/2024 10:02 AM CDT) Anatomical Region Laterality Modality Body N/A Mammography 10/06/2024 10:4 7 PM CDT Narrative 10/06/2024 10:51 PM CDT EXAM DESCRIPTION: DEXA AXIAL SKELETON BONE DENSITY 1 OR MORE SITES REASON FOR STUDY: 63 y/o year old F with given history of: osteoporosis screen, Home Care Assistant/Model: [employer] A (S/N [id number]) Facility LSC value of 0.022 for the [...] Cantu M.D. MF: JULIO C Report ID: [id number] Reading Location: [place] [address] Procedure Note Ferdinand Cantu MD - 10/06/2024 EXAM DESCRIPTION: DEXA AXIAL SKELETON BONE DENSITY 1 OR MORE SITES REASON FOR STUDY: 63 y/o year old F with given history of:osteoporosis screen, Home Care Assistant/Model: [employer] A (S/N [id number]) Facility LSC value of 0.022 for the [...] Cantu M.D. MF: JULIO C Report ID: [id number] Reading Location: [place] [address] Maverick Gage MD PhD IMG DXA PROCEDURES Final Result * Pap and High Risk HPV, reflex to Genotyping (01/16/2022 11:41 AM CDT) Thin prep (Pap test) 01/16/2022 11:41 AM CDT 01/16/2022 1:23 PM CDT Narrative PATHOLOGY [facility] - 01/23/2022 2:01 PM CDT EPIC results best viewed via link to PDF [facility] [place] [address] Note to Patients: This report may contain [...] REPORT FINAL Patient Name: CATHERINE SINGLETON Gender: F : 1960 (Age: 61) Address: [address] [place], [place] [id number] Hospital #: [id number] Service: SHOW DOG TRAINER Location: Patient Type: [facility] SPECIMEN Taken: 01/16/2022 Received: 01/16/2022 Accessioned: 01/18/2022 [...] This HPV test was performed at [facility] in [place], [place] utilizing the Gen-Probe Aptima assay. 01/23/2022 14:01 ANDREI Cline(ASCP), [facility] Report Electronically Reviewed and Signed Out By ANDREI Cline(ASCP), [facility] 01/23/2022 14:01:45 Cervicovaginal Cytology (Pap Test) Disclaimer: [...] The HPV test was performed by [facility], [address] [place] [address]. Report Images and scanned documents, if included only viewable in PDF version The performance characteristics of some immunohistochemical stains, in-situ hybridization and fluorescence in-situ hybridization tests and immunophenotyping by flow cytometry cited in this report (if any) were determined by the Surgical Pathology Department at [facility] as part of an ongoing lead quality control technician program and in compliance with federally mandated [...] determined by the Surgical Pathology Department of [facility]. It has not been cleared or approved by the U. S. Food and Drug Administration. Sheri Johnson NP LAB CYTOLOGY ORDERABLES Final Result PATHOLOGY [facility] 3rd Floor [place], [place] [phone] from Last 3 Months or Most Recently Relevant to Health Maintenance Insurance [facility] CHOICE PLUS [facility] HMO/PPO Address: [address] [address] [place] [address] [facility] ACCESS CHOICE ANTHEM ACCESS CHOICE Care Teams Tank Car Loader Relationship Specialty Start Date End Date Scott Jimenez DO PCP - General 04/29/18 Gill Asif MD Consulting Physician Interventional Cardiology 01/29/23 Maverick Gage MD PhD [address] [facility] DIV IM MEDICAL ONCOLOGY, [facility] 7A, 7B, [address] [place] [address] Medical Oncologist/Hematologis t Medical Oncology 06/27/24 Kindra Mac MD [address] [facility] DEPT RADIATION ONCOLOGY, [place] [address] Radiation Oncologist Radiation Oncology 07/23/24 Edelmira Pierce MD PhD [address] [place], [place] [id number] Surgeon Surgical Oncology 09/30/24
--- OUTSIDE RECORDS SUMMARY | 2024-12-17 08:42 | XMS_ITS ---
Author Organization [facility] Address [address] [place] [address] Care Team Providers Care Pe Teacher Name Role Phone Scott Jimenez DO Primary Care Provider [phone] Gill Asif MD Unavailable [phone] Maverick Gage MD PhD Unavailable Kindra Mac MD Unavailable Aft, Edelmira Keith MD PhD Unavailable [phone] Active Problems Problem Noted Date Diagnosed Date Malignant neoplasm of overla pping sites of right breast in female, estrogen receptor positive 07/23/2024 Cancer Staging:Pathologic stage from 07/23/2024:Stage IA(pT1b, pN0(sn), cM0, G1, ER+, AR+, HER2-, Oncotype DX score: 8) - Signed [...]
--- OUTSIDE RECORDS SUMMARY | 2024-12-17 08:42 | XMS_ITS | Clinical Summary ---
Author Organization [facility] Care Team Providers Care Assistant Sales Manager Name Role Phone Unavailable Primary Care Provider Unavailabl e Social History Tobacco Use Types Packs/Day Years Used Date Smoking Tobacco: Never Assessed Comments Unknown Sex and Gender Information Value Date Recorded Sex Assigned at Not on file Legal Sex Female 7:57 AM CUSTOMER EXPERIENCE INTERN Gender Identity Not on file Sexual Orientation [...]
--- NOTE | 2025-01-09 14:10 | WPDHOMESLEEP ---
Sleep Study - Home Unattended Date of Study: 12/17/24 Ordering Provider: Scott Jimenez DO Interpreting Provider: Judith Delaney MD Home Sleep Study Type: Watch PAT Height: 1.63 m Weight: 99.79 kg Body Mass Index: 37.8 Neck Circumference (inches): 15.5 [place]: 10 Reason for Sleep Study Multiple nighttime awakenings, poor quality sleep Sleep History Catherine Alexis is a 64-year-old woman with difficulty sleeping through the night. She wakes up at least twice during the night, and she is not refreshed on waking. She has had breast cancer, her oncologist thinks her poor sleep may be due to a prescription that she takes following breast cancer surgery. She never awakens from sleep short of breath. She never wakes at night with heartburn, belching or coughing.??She occasionally snores, never snores loudly enough that others complain. She frequently has trouble sleeping when she has a cold. She never wakes up gasping for breath during the night. She never has breathing problems at night reported to her by others. She occasionally sweats excessively at night. She never notices her heart pounding or beating irregularly during the night. She occasionally falls asleep during the day. She frequently falls asleep involuntarily, never falls asleep while driving. She rarely experiences loss of muscle tone with strong emotion. She rarely feels paralyzed on waking or falling asleep. She occasionally experiences vivid dreams upon waking or falling asleep. She never feels afraid of going to sleep. She occasionally has nightmares. She frequently recalls her dreams. She occasionally has thoughts racing through her mind. She never feels sad or depressed, although she frequently feels anxious. She Never notices parts of her body jerk. She never kicks during the night. She frequently feels crawling or aching feelings in her legs. She occasionally feels leg pain at night. She never has morning jaw pain, and occasionally grinds her teeth at night. She frequently feels bothered by pain during the day, is occasionally awakened by pain during the night. She occasionally wakes up feeling stiff in the morning, occasionally wakes feeling sore or achy in the morning. She rarely awakens with pain in her neck, spine, or joints. She has fatigue, concentration difficulties, and memory problems. Normal bedtime is 9:00 p.m., falling asleep fairly quickly, waking 3-4 times at night,long enough to go to the bathroom, is able to return to sleep within 15 minutes. She wakes at 2:30 a.m., reports getting 5-6 hours of sleep per night. She keeps the same schedule on weekends. she does not take naps. A short nap lasting 10-15 minutes is not refreshing. She is drowsy for 1 hour after waking. Habits:??Tobacco: never smoked Caffeine: none Alcohol: none Recreational substances: none [facility] Past Medical History Medical History Breast cancer Right Breast 04/2024 Arthralgia of elbow, right COVID (~12/19/20) Osteopenia Syncope Elevated BP without diagnosis of hypertension Vitamin D deficiency Hypothyroidism Surgical History Surgical History H/O lumpectomy H/O elbow surgery Radial head replacement in right elbow 01/17/2018 H/O tubal ligation 1991 History of appendectomy 1967 Family History Family History Father Family history of coronary artery disease Grandparent Diabetes mellitus Hypothyroidism Mother Diabetes mellitus Hypothyroidism Hypertension Son Heart disease Social History Social History Smoking status: Never smoker Alcohol intake: current Drinks per week: 0 Alcohol use details: socially Substance use: never Substance use type: does not use Do You Feel Safe in your Home?: Yes Lack of Transportation: No Lack of Food: Never True Current Housing: I Have Housing Concerned About Future Housing: No Difficulty Paying Gas/Electric Bills: No Difficulty Paying for Meds: No Currently Unemployed: No Education: High School Diploma/GED Difficulty w/ Childcare or Family Care: No Living arrangements: with family Spiritual care concerns: No Medications Home Medications ?Medication ?Instructions ?Recorded ?Confirmed ?Type cholecalciferol (vitamin D3) 1,250 1,250 mcg PO WEEKLY #8 caps 12/27/23 12/19/24 Rx mcg (50,000 unit) capsule levothyroxine 100 mcg tablet See Rx Instructions .Route 10/02/24 12/19/24 Rx .COMPLEX #90 tabs anastrozole 1 mg tablet 1 mg PO DAILY 11/27/24 12/19/24 History pantoprazole 40 mg tablet,delayed 40 mg PO DAILY #90 tabs 11/27/24 12/19/24 Rx release Medications: Her hand written medication list also includes : rosuvastatin 10 mg a day Citracal with vitamin D Sleep Procedure The sleep study was completed using [employer] a technically adequate device with seven channels: peripheral arterial tone, actigraphy, body position, snore, respiratory movement, pulse oximetry, sleep staging, and heart rate. Prior to using the device, the patient received verbal and written instructions for its application and was provided with the help desk phone number for additional telephonic instruction with 24-hour availability of qualified personnel to answer questions. Sleep Architecture The total recording time is 7 hrs, 16 min. The total sleep time is 6 hrs, 20 min. Sleep latency is 5 minutes. REM latency is 127 minutes. The patient had 7 episodes of waking. Sleep architecture shows 10.3% deep sleep, 76.5% light sleep, and 13.3% stage REM. The patient spent 91.5% of total sleep time in the supine position. Sleep efficiency was 87%. Respiratory Analysis The overall AHI (pAHI 3%:) is 31.7. The central AHI is 5.0. The AHI was 33.0 in NREM and 22.9 in REM sleep. The AHI was 32.6 in Supine and 22.2 in Non-supine sleep. Percent of Delio Jenkins respirations is 0%. Oximetry Data The oxygen desaturation index (TATIANNA 4%:) is 15.5. The mean saturation is 94%, and the lowest saturation is 87%. Time spent with saturation < 88% is 0.1 minutes. Snoring Profile Snoring average intensity is 41 dB. The patient snored above 45 decibels for 14.3 minutes, 3.8% of sleep time. Cardiac Profile The average pulse rate is 67 beats per minutes. The lowest pulse rate is 51 bpm. The highest pulse rate is 95 bpm. Cardiac rhythm analysis in sleep does not show atrial fibrillation. Assessment and Plan Assessment and Plan (1) Obstructive sleep apnea: Code(s): G47.33 - Obstructive sleep apnea (adult) (pediatric) Status: Acute Assessment and Plan: This home sleep test using WatchPat on 12/17/2024 shows severe obstructive sleep apnea, the apnea-hypopnea index is 31.7, desaturation to 87% and frequent snoring. The central AHI is 5.0, mildly elevated. I recommend that this patient has an in-lab CPAP titration as APAP may increase her central apneas. She should have a sleep aid available if needed, consider Ambien 5 or 10 mg or alternatively Lunesta 2 or 3 mg, to get to sleep and stay asleep during the titration. She should not nap on the day of the study. Central apnea-hypopnea index is elevated at 5.0. Central apneas can be seen in the setting of decreased LV function, opioids and alcohol and can occur idiopathically. Consider echocardiogram to evaluate LV function. BMI is 37.8. Weight management is advised. Clinical data suggests that weight loss of 10% can reduce the severity of respiratory events and snoring and improve AHI by as much as 25%. (2) Restless leg syndrome: Code(s): G25.81 - Restless legs syndrome Status: Acute Assessment and Plan: Her sleep questionnaire indicates that she frequently has uncomfortable crawling feelings in her legs. This is highly suggestive of restless legs syndrome. Recommend further discussion with the patient including if this sensation is present 2 nights a week or more often, if it is worse with remaining still and improved with movement, aand if she has any relieving or aggravating factors. She does not have complaints of kicking at night. Her leg movements can be evaluated during her CPAP titration. Ferritin level is indicated to exclude iron deficiency anemia as a contributing factor. Ferritin should be 75 ng/mL or greater. If ferritin is below this, iron supplementation should be given to achieve ferritin of 75 ng/mL. There are nonpharmacologic methods to treat limb movements including daily exercise, stretching calf muscles before bed, avoiding excessive amounts of caffeine and alcohol, vitamin B supplementation, magnesium lotion massaged into legs before bed, and use of a weighted blanket. Pharmacologic therapy is very effective for restless legs syndrome and limb movements during sleep and may include [id number] voltage-gated calcium channel ligands such as gabapentin which is preferable to dopaminergic agents which can have augmentation. Data The data obtained during this sleep study is adequate for interpretation. Certification This sleep study has been reviewed by a board certified sleep medicine physician.
[2025-01-12 20:25] VITALS: BMI 37.8
== END 2024-12-18 10:25 | disposition home or self-care (01) ==
LOC: ANHCSM 08:25
PROVIDERS: PCP Internal Medicine; Visit Provider Internal Medicine
DX: G47.19 Other hypersomnia (principal); G47.33 Obstructive sleep apnea (adult) (pediatric); G25.81 Restless legs syndrome
CPT/HCPCS: 95800

== ENCOUNTER 2025-03-17 07:57 | Outpatient (CLI) | payer BC, SELFPAY ==
--- OUTSIDE RECORDS SUMMARY | 2025-03-17 08:04 | XMS_ITS | Encounter Summary ---
Author Organization [facility] Address [address] [place] [address] Phone Care Team Providers Care City Detective Name Role Phone Scott Jimenez DO Primary Care Provider [phone] Gill Asif MD Unavailable [phone] Maverick Gage MD PhD Unavailable Kindra Mac MD Unavailable Aft, Edelmira Keith MD PhD Unavailable [phone] Encounter Details Date Type Department Care Team (Late st Contact Info) Description 03/09/2025 Results Follow-Up [facility] Medicine Surgery [address] [place] [address] Sheri Johnson, YONI [address] [place] [address] Surgical pathology Social History Tobacco Use Types Packs/Day Years Used Date Smoking Tobacco: Never Passive Smoke Exposure: Never Smokeless Tobacco: Never AUDIT-C Answer Date Recorded Q1: How often [...] on file Legal Sex Female 10:39 AM VBA PROGRAMMER Gender Identity Female 04/20/2024 4:40 PM VBA PROGRAMMER Sexual Orientation Straight 04/20/2024 4: 40 PM VBA PROGRAMMER documented as of this encounter Plan of Treatment Not on file documented as of this encounter Visit Diagnoses Not on filedocumented in this encounter Care Teams City Detective Relationship Specialty Start Date End Date Scott Jimenez DO PCP - General 04/29/18 Gill Asif MD Consulting Physician Interventional Cardiology 01/29/23 Maverick Gage MD PhD Medical Oncologist/Hematologis t Medical Oncology 06/27/24 Kindra Mac MD [address] [facility] [place] [address] Radiation Oncologist Radiation Oncology 07/23/24 Edelmira Pierce MD PhD [address] [place] [address] Surgeon Surgical Oncology 09/30/24 documented as of this encounter
--- OUTSIDE RECORDS SUMMARY | 2025-03-17 08:04 | XMS_ITS | Clinical Summary ---
Author Organization [facility] Address [address] [place] [address] Care Team Providers Care Hydrogen Treater Name Role Phone Scott Jimenez DO Primary Care Provider [phone] Gill Asif MD Unavailable [phone] Maverick Gage MD PhD Unavailable Kindra Mac MD Unavailable Aft, Edelmira Keith MD PhD Unavailable [phone] Allergies No known active allergies Medications pantoprazole [...] Active Additional Information Patient not taking.Reported on 03/04/2025 levothyroxine (SYNTHROID) 100 mcg tablet Take 1 tablet (100 mcg total) by mouth daily 5 Active anastrozole (ARIMIDEX) 1 mg tablet Take 1 tablet (1 mg total) by mouth daily 90 tablet 1 5 05/23/19 26 Active Active Problems Problem Noted Date Diagnosed Date Malignant neoplasm of overla pping sites of right breast in female, estrogen receptor positive 07/23/2024 Cancer Staging:Pathologic stage from 07/23/2024:Stage IA(pT1b, pN0(sn), cM0, G1, ER+, NM+, HER2-, Oncotype DX score: 8) - Signed by Maverick Gage MD PhD on 07/23/2024 Invasive carcinoma of breast 05/24/2024 History of invasive breast cancer 05/14/2024 Other fatigue 02/27/2023 Chest tightness 02/27/2023 Shortness of breath on exertion 02/27/2023 Urge incontinence of urine 07/01/2014 Pain in female pelvis 10/07/2013 Encounters Date Type Department Care Team Description 03/09/2025 Results Follow-Up [facility] [address] [place] [phone] Sheri Johnson NP Surgical pathology 03/04/2025 12:08 PM KEYBOARD OPERATOR - 03/04/2025 11:59 PM KEYBOARD OPERATOR Hospital Encounter [facility] PATHOLOGY [address] [address] Skin lesion Discharge Disposition: Discharge to home or self care 03/04/2025 11:30 AM KEYBOARD OPERATOR Office Visit [facility] [address] [place] [phone] Sheri Johnson NP Invasive carcinoma of breast (HCC) (Primary Dx); History of partial mastectomy, right; Skin lesion 02/27/2025 12:00 PM KEYBOARD OPERATOR Office Visit [facility] Oncology [address] [place] [address] [place] [phone] Maverick Gage MD PhD Malignant neoplasm of overlapping sites of right breast in female, estrogen receptor positive (HCC) (Primary Dx) 01/05/2025 3:30 PM CDT Office Visit [facility] [address] [place] [phone] Aft, Edelmira Keith MD PhD History of invasive breast cancer (Primary Dx) from Last 3 Months Immunizations Immunization Administration Dates Next Due Influenza, Quadrivalent, Michelle l Culture-based MDCK, Preservative Free, Antibiotic Free, Intramuscular 03/06/2023 Sars-cov-2 Covid-19 Mrna, Bi valent, Original/sujata Ba.1, A 02/08/2022 Surgical History Surgery Date Site/Laterality Comments APPENDECTOMY [...] Relation Name Comments Diabetes type II Mother Heart disease Mother Hypertension Mother Anesthesia problems Neg Hx Relation Name Status Comments Father Mother Social History Tobacco Use Types Packs/Day Years Used Date Smoking Tobacco: Never Passive Smoke Exposure: Never Smokeless Tobacco: Never Tobacco Cessation:Counseling Given: [...] on file Legal Sex Female 10:39 AM KEYBOARD OPERATOR Gender Identity Female 04/20/2024 4:40 PM KEYBOARD OPERATOR Sexual Orientation Straight 04/20/2024 4: 40 PM KEYBOARD OPERATOR Obstetrics History Para Term AB IAB SAB [...] Sign Reading Time Taken Comments Blood Pressure 136/85 03/04/2025 11:10 AM KEYBOARD OPERATOR Pulse 76 03/04/2025 11:10 AM KEYBOARD OPERATOR Temperature 36.4 C (97.6 F) 03/04/2025 11:10 AM KEYBOARD OPERATOR Respiratory Rate 18 03/04/2025 11:10 AM KEYBOARD OPERATOR Oxygen Saturation 96% 03/04/2025 11:10 AM KEYBOARD OPERATOR Inhaled Oxygen Concentration - - Weight 103.9 kg (229 lb) 03/04/2025 11:10 AM KEYBOARD OPERATOR Height 162.4 cm (5' 3.94) 03/04/2025 11:[address] Body Mass Index 39.39 03/04/2025 11:10 AM KEYBOARD OPERATOR Plan of Treatment Health Maintenance Due Date Last Done Comments Breast Cancer Screening-Mammogram 1960 Depression Screening 1960 Hepatitis C Screening 1960 DTaP/Tdap/Td Vaccine (1 - Tdap) 11/01/1971 Hepatitis B Screening 1978 Pneumococcal vaccine <65 (1 of 2 - PCV) 11/01/1979 Zoster Vaccine (1 of 2) 11/01/1979 Covid-19 Vaccine (3 - Pfizer risk series) 03/08/2022 02/08/2022, 08/01/2020, 07/11/2020 Cervical Cancer Screening 01/16/2023 01/16/2022 Influenza Vaccine (#1) 2024 03/06/2023 Regular Well Visit/Exam 18-64 10/09/2025 10/09/2024, 01/16/2022 Colon Cancer Screening-Colonoscopy 10/28/20342024 Colon Cancer Screening-CT Colonography Discontinued 10/28/2024 Colon Cancer Screening-DNA Stool Discontinued 10/29/19 Colon Cancer Screening-FIT Discontinued 10/28/2024 Colon Cancer Screening-Sigmoidoscopy Discontinued 10/14 Medical Devices Implanted Type Area Manager Paid Device Identifier Shelf Expiration Date Model / Serial / Lot Bard Peripheral Vascular Ultraclip Bard 17ga 10cm 2 Trigger Permanent Ultrasound [id number] - [id number] Implanted:Qty: 1 on 04/25/2024 at [facility] Right: Breast Bard Peripheral Vascular [id number] / / [employer] Marker Image Hydromark Plus T5 Titanium 15ga Radiological Implant Sterile 4009-05-31-T5 - [id number] Implanted:Qty: 1 on 04/25/2024 at [facility] Right: Breast [employer] [id number] 04/03/20250-1 5-T5 / / [id number] Bard Peripheral Vascular Marker Breast Ring Shape Radiopaque Nitinol Ultracor Twirl [id number] - [id number] Implanted:Qty: 1 on 04/25/2024 at [facility] Right: Axilla Bard Peripheral Vascular [id number] / / Bard Peripheral Vascular Ghiatas 20ga 20cm 7cm Beaded Needle Breast Wire Localization [id number] - [id number] Implanted:Qty: 1 on 06/12/2024 by Jazmin Hanley MD at [facility] Right: Breast Bard Peripheral Vascular [id number] / / Procedures Procedure Name Priority Date/Time Associated Diagnosis Comments SURGICAL PATHOLOGY Routine 03/04/2025 12 :08 PM KEYBOARD OPERATOR Skin lesion DERM PUNCH BIOPSY Routine 03/04/2025 11: 30 AM KEYBOARD OPERATOR Invasive carcinoma of breast (HCC) History of partial mastectomy, right Skin lesion COLONOSCOPY Routine 10/28/2024 9:55 AM CDT PAP AND HIGH RISK HPV, REFLEX TO GENOTYPING Routine 01/16/2022 11:41 AM CDT Screening for cervical cancer from Last 3 Months or Most Recently Relevant to Health Maintenance Results * Surgical pathology (03/04/2025 12:08 PM KEYBOARD OPERATOR) Tissue (Skin, biopsy) 03/04/2025 12:08 PM KEYBOARD OPERATOR 03/04/2025 2:00 PM KEYBOARD OPERATOR Narrative PATHOLOGY [facility] - 03/09/2025 3:23 PM KEYBOARD OPERATOR [facility] results best viewed via link to PDF [facility] of Surgical Pathology [address] [facility], [place] [address] Note to Patients: This report may contain [...] explain the details. SURGICAL PATHOLOGY REPORT FINAL Patient Name: CATHERINE SINGLETON Gender: F : 1960 (Age: 64) Address: [address] [place] [address] Hospital #: [id number] Taken:03/04/2025 Received:03/04/2025 Reported: 03/09/2025 Patient Type: [facility] SPECIMEN Service: Laboratory Location: Physician(s): KAI Puckett Diagnosis: Skin, left outer breast, punch biopsy: Seborrheic keratosis, inflamed jili/03/05/2025 10:05 By this signature, I attest that the above diagnosis is based upon my personal examination of the slides(and/or other material indicated in the diagnosis). Hugo Alcantara MD, PhD Report Electronically Reviewed and Signed Out By Hugo Alcantara MD, PhD 03/09/2025 15:23:02 Microscopic Description and Comment: There is hyperkeratosis, papillated and reticulated epithelial hyperplasia, horn pseudocysts and an inflammatory cell infiltrate. (L82.0) Microscopic slide review and interpretation for this case was performed at the Dermatopathology Center, Department of Pathology and Immunology, [facility], [facility] [place], [address], [place] [address] CLIA # [id number] Rahul Rosado History: The patient is a 64-year-old woman presenting with a history of breast cancer; skin lesion. Operative procedure: Left outer breast skin punch biopsy. Specimen(s) Received: A: Skin, left outer breast, punch biopsy Gross Description: Received in formalin, labeled with the patient's identifiers and left outer breast skin punch biopsy is a 0.5 x 0.5 cm punch of skin excised to a depth of 0.4 cm. The skin surface is bonilla to bonilla-brown and slightly roughened. The margin of excision is inked blue and the specimen is bisected. The tissue is placed on edge between blue sponges. Labeled A1. Jar 0. The tissue was placed in formalin immediately upon collection. Total fixation time = 8.5 hours. sxst/03/04/2025 15:26 PA(s): Michaela Humphries By this signature, I attest that the above diagnosis is based upon my personal examination of the slides(and/or other material). Addenda/Procedures The performance characteristics of some immunohistochemical stains, fluorescence in-situ hybridization tests and immunophenotyping by flow cytometry cited in this report (if any) were determined by the Surgical Pathology and Flow Cytometry Departments at [facility] as part of an ongoing quality compliance coordinator program and in compliance with federally mandated [...] Surgical Pathology and Flow Cytometry Departments of [facility]. It has not been cleared or approved by the U. S. Food and Drug Administration. IMAGES AND SCANNED DOCUMENTS, IF INCLUDED, ONLY VIEWABLE IN PDF VERSION OF REPORT us Sheri Johnson NP LAB PATHOLOGY ORDERABLE S Final Result PATHOLOGY [facility] 3rd Floor [place], [place] [phone] * DERM PUNCH BIOPSY (03/04/2025 11:30 AM KEYBOARD OPERATOR) Narrative Sheri Johnson NP - 03/04/2025 11:30 AM KEYBOARD OPERATOR Sheri Johnson NP 03/09/2025 7:28 PM Punch Biopsy Date/Time: 03/04/2025 11:30 AM Performed by: Sheri Johnson NP Authorized by: Sheri Johnson NP Consent: Verbal consent obtained. Written consent obtained Risks and benefits: risks, benefits and alternatives were discussed Consent given by: patient Patient understanding: patient states understanding of the procedure being performed Patient consent: the patient's understanding of the procedure matches consent given Patient identity confirmed: verbally with patient Time out: Immediately prior to procedure a time out was called to verify the correct patient, procedure, equipment, ground support equipment mechanic and site/side marked as required. Preparation: Patient was prepped and draped in the usual sterile fashion. Local anesthesia used: yes Anesthesia: local infiltration Anesthesia: Local anesthesia used: yes Local Anesthetic: lidocaine 2% without epinephrine and bupivacaine 0.5% without epinephrine (Lidocaine lot number: [id number] expiration date ; bupivacaine lot number [id number] expiration date ) Anesthetic total: 1.5 mL Sedation: Patient sedated: no Patient tolerance: patient tolerated the procedure well with no immediate complications us Sheri Johnson JAVA USER INTERFACE DEVELOPER IN CLINIC/BEDSIDE ORDER PATSY Final Result * Colonoscopy (10/28/2024 9:55 AM CDT) Anatomical Region Laterality Modality Other us Scott Jimenez DO ENDOSCOPY PROCEDURES Final Result * Pap and High Risk HPV, reflex to Genotyping (01/16/2022 11:41 AM CDT) Thin prep (Pap test) 01/16/2022 11:41 AM CDT 01/16/2022 1:23 PM CDT Narrative PATHOLOGY [facility] - 01/23/2022 2:01 PM CDT EPIC results best viewed via link to PDF [facility] of [place] [address] Note to Patients: This report may contain [...] Gender: F : 1960 (Age: 61) Address: [address] [place] [address] [place] [address] Hospital #: [id number] Service: ENVIRONMENTAL SERVICES SPECIALIST Location: Patient Type: [facility] SPECIMEN Taken: 01/16/2022 Received: 01/16/2022 [...] 68. This HPV test was performed at [facility] in [place], [place] utilizing the Gen-Probe Aptima assay. [facility]/01/23/2022 14:01 ANDREI Cline(ASCP), [facility] Report Electronically Reviewed and Signed Out By ANDREI Cline(ASCP), [facility] 01/23/2022 14:01:45 Cervicovaginal Cytology (Pap Test) Disclaimer: [...] screening. The HPV test was performed by [facility], [address] [place] [address]. Report Images and scanned documents, if included only viewable in PDF version The performance characteristics of some immunohistochemical stains, in-situ hybridization and fluorescence in-situ hybridization tests and immunophenotyping by flow cytometry cited in this report (if any) were determined by the Surgical Pathology Department at [facility] as part of an ongoing quality compliance coordinator program and in compliance with federally mandated [...] determined by the Surgical Pathology Department of [facility]. It has not been cleared or approved by the U. S. Food and Drug Administration. Sheri Johnson NP LAB CYTOLOGY ORDERABLES Final Result PATHOLOGY [facility] 3rd Floor [place], [place] [phone] from Last 3 Months or Most Recently Relevant to Health Maintenance Insurance [facility] CHOICE PLUS [employer] ACCESS CHOICE [employer] ACCESS CHOICE Care Teams Hydrogen Treater Relationship Specialty Start Date End Date Scott Jimenez DO PCP - General 04/29/18 Gill Asif MD Consulting Physician Interventional Cardiology 01/29/23 Maverick Gage MD PhD Medical Oncologist/Hematologis t Medical Oncology 06/27/24 Kindra Mac MD [address] [facility] [place] [address] Radiation Oncologist Radiation Oncology 07/23/24 Edelmira Pierce MD PhD [address] [place] [address] Surgeon Surgical Oncology 09/30/24
--- OUTSIDE RECORDS SUMMARY | 2025-03-17 08:04 | XMS_ITS ---
Author Organization [facility] Address [address] [place] [address] Care Team Providers Care Employment Legal Assistant Name Role Phone Scott Jimenez DO Primary Care Provider [phone] Gill Asif MD Unavailable [phone] Maverick Gage MD PhD Unavailable Kindra Mac MD Unavailable Aft, Edelmira Keith MD PhD Unavailable [phone] Active Problems Problem Noted Date Diagnosed Date Malignant neoplasm of overla pping sites of right breast in female, estrogen receptor positive 07/23/2024 Cancer Staging:Pathologic stage from 07/23/2024:Stage IA(pT1b, pN0(sn), cM0, G1, ER+, MS+, HER2-, Oncotype DX score: 8) - Signed [...]
--- OUTSIDE RECORDS SUMMARY | 2025-03-17 08:04 | XMS_ITS | Clinical Summary ---
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
--- NOTE | 2025-04-01 18:11 | P.SLEEP_ITS ---
Sleep Study Date of Study: 03/17/25 Ordering Provider: Allie Lopez APRN Interpreting Physician: Judith Delaney MD Sleep Study Type: CPAP Titration Height: 1.63 m Weight: 99.79 kg Body Mass Index: 37.8 Neck Circumference (inches): 16 [place]: 10 Reason for Sleep Study * 12/17/2024 Home sleep test showing severe obstructive sleep apnea, the apnea- hypopnea index is 31.7, desaturation to 87% and frequent snoring. The central AHI is 5.0, mildly elevated. She returns for PAP titration. History is consistent with resltess legs syndrome. Sleep History This history is from her 12/17/2024 sleep questionnaire. Catherine Alexis is a 64-year-old woman with difficulty sleeping through the night. She wakes up at least twice during the night, and she is not refreshed on waking. She has had breast cancer, her oncologist thinks her poor sleep may be due to a prescription that she takes following breast cancer surgery. She never awakens from sleep short of breath. She never wakes at night with heartburn, belching or cou ghing.??She occasionally snores, never snores loudly enough that others complain. She frequently has trouble sleeping when she has a cold. She never wakes up gasping for breath during the night. She never has breathing problems at night reported to her by others. She occasionally sweats excessively at night. She never notices her heart pounding or beating irregularly during the night. She occasionally falls asleep during the day. She frequently falls asleep involuntarily, never falls asleep while driving. She rarely experiences loss of muscle tone with strong emotion. She rarely feels paralyzed on waking or falling asleep. She occasionally experiences vivid dreams upon waking or falling asleep. She never feels afraid of going to sleep. She occasionally has nightmares. She frequently recalls her dreams. She occasionally has thoughts racing through her mind. She never feels sad or depressed, although she frequently feels anxious. She Never notices parts of her body jerk. She never kicks during the night. She frequently feels crawling or aching feelings in her legs. She occasionally feels leg pain at night. She never has morning jaw pain, and occasionally grinds her teeth at night. She frequently feels bothered by pain during the day, is occasionally awakened by pain during the night. She occasionally wakes up feeling stiff in the morning, occasionally wakes feeling sore or achy in the morning. She rarely awakens with pain in her neck, spine, or joints. She has fatigue, concentration difficulties, and memory problems. Normal bedtime is 9:00 p.m., falling asleep fairly quickly, waking 3-4 times at night,long enough to go to the bathroom, is able to return to sleep within 15 minutes. She wakes at 2:30 a.m., reports getting 5-6 hours of sleep per night. She keeps the same schedule on weekends. she does not take naps. A short nap lasting 10-15 minutes is not refreshing. She is drowsy for 1 hour after waking. Habits:??Tobacco: never smoked Caffeine: none Alcohol: none Recreational substances: none PMFSH Past Medical History Medical History Obstructive sleep apnea Breast cancer Right Breast 04/2024 Arthralgia of elbow, right COVID (~12/19/20) Osteopenia Syncope Elevated BP without diagnosis of hypertension Vitamin D deficiency Hypothyroidism Surgical History Surgical History H/O lumpectomy H/O elbow surgery Radial head replacement in right elbow 01/17/2018 H/O tubal ligation 1991 History of appendectomy 1967 Family History Family History Father Family history of coronary artery disease Grandparent Diabetes mellitus Hypothyroidism Mother Diabetes mellitus Hypothyroidism Hypertension Son Heart disease Social History Social History Smoking status: Never smoker Alcohol intake: current Drinks per week: 0 Alcohol use details: socially Substance use: never Substance use type: does not use Lack of Transportation: No Lack of Food: Never True Current Housing: I Have Housing Concerned About Future Housing: No Difficulty Paying Gas/Electric Bills: No Difficulty Paying for Meds: No Currently Unemployed: No Education: High School Diploma/GED Difficulty w/ Childcare or Family Care: No Living arrangements: with family Spiritual care concerns: No Medications Home Medications ?Medication ?Instructions ?Recorded ?Confirmed ?Type cholecalciferol (vitamin D3) 1,250 1,250 mcg PO WEEKLY #8 caps 12/27/23 12/19/24 Rx mcg (50,000 unit) capsule anastrozole 1 mg tablet 1 mg PO DAILY 11/27/2412/19 History pantoprazole 40 mg tablet,delayed 40 mg PO DAILY #90 t abs 11/27/24 12/19/24 Rx release levothyroxine 100 mcg tablet See Rx Instructions .Rout e 03/18/25 Rx .COMPLEX #90 tabs Sleep Procedure A full CPAP polysomnogram using the [employer] multi-channel system recorded the standard physiologic parameters including EEG, EOG, submentalis EMG, anterior tibialis EMG, EKG, body position, nasal and oral airflow using nasal pressure sensor and thermistor. Respiratory parameters of chest and abdominal movements were recorded with Respiratory Inductance Plethysmography belts. Oxygen saturation was recorded by pulse oximetry. Video monitoring was also performed. Sleep stages, periodic limb movements, and EEG arousals were scored in 30 second epochs according to the criteria of the AASM Scoring Manual. The Apnea-Hypopnea Index was calculated using [facility] guidelines for definition of hypopnea while scoring respiratory events. No sleep aid was taken at the start of the study. The patient was started on CPAP using a medium ResMed AirTouch F20 full face mask and heated humidity, initial pressure was CPAP 5 cm, titrated in 1 cm increments to CPAP 12. Treatment emergent central apneas were seen at CPAP and higher pressures. EPR 2 cm was added at CPAP 13 cm, titration continued with CPAP 15 and 2 cm EPR, CPAP 16 with 2 cm EPR. At CPAP 16 with 2 cm EPR, the patient had worsening treatment emergent central apneas. The tech switched to BiPAP 17/13 with persistent treatment emergent centrals, with the final pressure BiPAP 16/12, no back up rate. Mild sinusoidal breathing pattern occured at higher pressures with treatment emergent centrals apneas. There was no really adequate pressure. She had REM at CPAP 13 with 2 of EPR however the residual AHI was 41. There was a small amount of REM at CPAP 15 with 2 EPR. At CPAP 16 and bilevel 17/13 the majority of events were treatment emergent central apneas. Sleep Architecture The total recording time was 457.4 minutes. The total sleep time was 271.0 minutes. Sleep latency was 9.8 minutes. REM latency was 285.5 minutes. Sleep efficiency was 59.3%. The patient had 55 awakenings for an awakening index of 12.2. Wake after Sleep Onset time was 176.5 minutes. The patient spent 56.0 minutes, 20.7% of total sleep time in Stage N1. The patient spent 146.5 minutes, 54.1% in Stage N2. The patient spent 51.0 minutes, 18.8% in Stage N3. The patient spent 17.5 minutes, 6.5% in Stage REM. Respiratory Analysis The patient had 61 hypopneas, 2 obstructive apneas, no mixed apneas, and 46 central apneas for an overall Apnea Hypopnea Index of 24.1 events per hour. The REM Apnea Hypopnea Index was 34.3. The NREM Apnea Hypopnea Index was 23.4. The patient had a Central Apnea Hypopnea Index of 10.2. There were no Respiratory Effort Related Arousals. The Respiratory Disturbance Index is 35.0 events per hour. There was no evidence of Delio-Jenkins Respirations. Arousals There were 186 total arousals for an arousal index of 41.2. There were 91 spo ntaneous arousals for an index of 20.1. There were 27 arousals due to respiratory events for an index of 6.0. There were 50 arousals due to periodic limb movements for an index of 11.1. There were 24 arousals due to isolated limb movements for an index of 5.3. Periodic Limb Movements The patient had 66 isolated limb movements with an index of 14.6. The patient had 233 periodic limb movements with index of 51.6. Patient had a total of 299 limb movements with a total limb movement index of 66.2. Oximetry Data The patient had an average oxygen saturation of 94.5% in sleep with a minimum oxygen saturation of 90% and a maximum oxygen saturation of 99%. The patient had 80 oxygen desaturations that were 4% or greater resulting in an Oxygen Desaturation Index of 17.7. The patient spent no total sleep time with an oxygen saturation below 88%. Snoring Profile Snoring was mild, intermittent, improved during the titration. Cardiac Profile The EKG showed normal sinus rhythm. The patient had an average pulse rate of 64 bpm with a minimum pulse rate of 56 bpm and a maximum pulse rate of 77 bpm. No arrhythmias noted. EEG Profile Unremarkable, no evidence of seizures. Assessment and Plan Assessment and Plan (1) Obstructive sleep apnea: Code(s): G47.33 - Obstructive sleep apnea (adult) (pediatric) Status: Acute Assessment and Plan: This full night titration on 03/17/2025 shows a challenging procedure. There is no truly acceptable pressure. At CPAP 7 cm, she had 94 minutes of sleep was without REM, and the residual apnea-hypopnea index was 5.8 with minimum saturation of 91%. There were treatment emergent centrals at CPAP 12 and higher. One option would be to try the patient on CPAP 7 and then if treatment emergent centrals emerged return to the sleep lab for a titration using BiPAP and transition to ASV if necessary. Another option is having the patient perform an ASV titration now instead of having a trial of CPAP 7 cm which likely will not be successful. Consider Sleep Medicine referral. BMi is 37. Weight management is advised. Clinical data suggests that weight loss of 10% can reduce the severity of respiratory events and snoring and improve AHI by as much as 25%. (2) Treatment-emergent central sleep apnea: Code(s): T81.89XA - Other complications of procedures, not elsewhere classified, initial encounter; G47.33 - Obstructive sleep apnea (adult) (pediatric); G47.37 - Central sleep apnea in conditions classified elsewhere Status: Acute Assessment and Plan: She has treatment emergent centrals at CPAP 7 cm, a low percentage of the total events. Central apneas emerged at CPAP 12 cm and above. Showed sinus will breathing, not quite Delio-Jenkins but a pattern similar. (3) Restless leg syndrome: Code(s): G25.81 - Restless legs syndrome Status: Acute Assessment and Plan: History is consistent with restless legs syndrome, frequent uncomfortable feelings in her legs and during the study she had numerous periodic limb movements however they did not cause frequent arousals. Ferritin level is indicated to exclude iron deficiency anemia as a contributing factor. Ferritin should be 75 ng/mL or greater. If ferritin is below this, iron supplementation should be given to achieve ferritin of 75 ng/mL. There are nonpharmacologic methods to treat limb movements including daily exercise, stretching calf muscles before bed, avoiding excessive amounts of caffeine and alcohol, vitamin B supplementation, magnesium lotion massaged into legs before bed, and use of a weighted blanket. Pharmacologic therapy is very effective for restless legs syndrome and limb movements during sleep and may include [id number] voltage-gated calcium channel ligands such as gabapentin which is preferable to dopaminergic agents which can have augmentation. Other treatments can include opioids and benzodiazepines. Data The data obtained during this sleep study is adequate for interpretation. Certification This sleep study has been reviewed by a board certified sleep medicine physician.
[2025-04-27 08:40] VITALS: BMI 37.8
== END 2025-03-18 06:32 | disposition home or self-care (01) ==
PROVIDERS: PCP Internal Medicine; Visit Provider Nurse Practitioner
DX: G47.33 Obstructive sleep apnea (adult) (pediatric) (principal); T81.89XA Other complications of procedures, not elsewhere classified, initial encounter; G47.37 Central sleep apnea in conditions classified elsewhere; G25.81 Restless legs syndrome; Z68.37 Body mass index [BMI] 37.0-37.9, adult
CPT/HCPCS: 95811